=== PATIENT | male | born 1945 | race Caucasian/White ===

== ENCOUNTER 2024-06-26 09:33 | Inpatient (IN) ==
[2024-06-26] MEDS ORDERED: MoRPHine SULFATE 4 MG/ML 1 ML CARP\\VIAL IV PRN (09:47)
[2024-06-26] MEDS ORDERED: MoRPHine SULFATE 2 MG/ML CARP IV PRN (09:47)
--- NOTE | 2024-06-26 09:52 | Emergency Department Note ---
Impression & Plan Nondisplaced fracture of left femur, Hypertension, History of CVA (cerebrovascular accident), Fall ED Provider Note NAME: KEVIN LOPEZ AGE: 79 SEX: M : 1945 ARRIVES VIA: Ambulance INFORMANT: Patient ED PROVIDER(S): Sergio Edward DO CHIEF COMPLAINT: Left hip pain HPI: Patient is an 79-year-old male who was out hunting. A tree fell on the road and he was trying to move it. It was rotted and he was pulling on the branch and the branch broke off and he fell backwards onto his left hip. He did not hit his head or neck. No chest pain or belly pain. No back pain. He notes he is unable to walk due to this. No tingling or numbness in the leg. Denies any blood thinners. No dysuria, urgency, or frequency. ADDITIONAL HISTORY OBTAINED: Per HPI Chronic Medical/Social Conditions Affecting Care: Per HPI PAST MEDICAL HISTORY:See Below PAST SURGICAL HISTORY:See Below FAMILY HISTORY:See Below SOCIAL HISTORY:See Below HOME MEDICATIONS:See Below ALLERGIES:See Below VITALS:See Below PHYSICAL EXAMINATION: GENERAL: alert, well appearing, well nourished, no distress, non-toxic HEAD: normal cephalic, atraumatic EYE EXAM: normal conjunctiva, PERRL and EOM's grossly intact OROPHARYNX: no exudate, no erythema, lips, buccal mucosa, and tongue normal and mucous membranes are moist NECK: supple, no nuchal rigidity, no adenopathy, non-tender CHEST: stable to compression anteriorly and posteriorly LUNGS: clear to auscultation. Normal chest wall mechanics HEART: no murmurs, S1 normal and S2 normal ABDOMEN: abdomen soft, non-tender, normo-active bowel sounds, no masses, no rebound or guarding. PELVIS: stable to compression anteriorly and posteriorly BACK: Back is symmetrical on inspection and there is no deformity, no midline tenderness, no CVA tenderness. UPPER EXTREMITIES: full active and passive range of motion of all joints without tenderness to palpation LOWER EXTREMITIES: No tenderness on palpation of the entire right lower extremity. No tenderness in the left foot ankle tib-fib knee distal or mid femur. Tenderness over the left hip on palpation. Unable to move the hip. DP and PT 2 out of 4 bilaterally. Gross station intact. NEURO EXAM: Normal sensorium, cranial nerves II-XII grossly intact, normal speech, no gross weakness of arms. GCS: 15. MEDICAL DECISION MAKING: Patient is a 79-year-old male who presents ER for the above-stated complaint. IV was established medicos obtained. Labs show no significant leukocytosis or anemia. INR unremarkable. BMP along with LFTs bilirubin was unremarkable. UA was clean. X-rays of the hip and pelvis shows a left hip fracture. Patient was given IV narcotics. He was updated bedside. Discussed with orthopedics as well as the hospitalist for further evaluation management treatment. Patient and family were updated bedside. Again patient denied any head strike or neck pain. Consults/Care Managements Discussions: Per [facility] Triage Nursing notes reviewed. Limited review of prior medical records performed Vital Signs: reviewed and remarkable for HTN Differential diagnosis: Fracture, dislocation, contusion, intra-abdominal, pneumothorax, intrathoracic, intracranial, neurologic, compartment syndrome, rhabdomyolysis, as well as other pathologies. ER treatment provided: See below Diagnostics interpreted by me include EKG and cardiac monitoring as listed below: -Cardiac Monitoring: An order was placed for continuous cardiac monitoring. The monitor shows a rate of 70 with sinus rhythm. -ECG: Sinus rhythm rate of 64 Left axis No PVCs QTc 406 -Laboratory studies:Interpreted by me as stated above in MDM and shown below. Imaging studies: Xrays: As interpreted by me: X-rays of the left hip and pelvis show a left hip fracture per my preliminary interpretation CTs show: none Procedures:none Critical Care: None Past Med/Surg History Problem List (Updated 06/26/24 @ 14:11 by Sergio Edward DO) Fall (Acute) Diabetes Tobacco smoker, 1 pack of cigarettes or less per day History of CVA (cerebrovascular accident) (Acute) Hypertension (Acute) Nondisplaced fracture of left femur (Acute) Social History Smoking Status: Never smoker Feels Safe at Home: Yes Allergies Allergies Allergy/AdvReac Type Severity Reaction Status Date / Time No Known Allergies Allergy Unknown Unverified 05/10/05 00:23 Home Meds Home Medications Medication Instructions Recorded Confirmed aspirin 81 mg tablet,delayed 81 mg PO QAM ##0 04/12/07 06/26/24 release amlodipine 5 mg tablet 5 mg PO QAM 06/26/24 06/26/24 atorvastatin 40 mg tablet 40 mg PO PM 06/26/24 06/26/24 cholecalciferol (vitamin D3) 25 25 mcg PO QAM 06/26/24 06/26/24 mcg (1,000 unit) tablet (Vitamin D3) empagliflozin 10 mg tablet 10 mg PO QAM 06/26/24 06/26/24 (Jardiance) fenofibrate nanocrystallized 48 mg 48 mg PO PM 06/26/24 06/26/24 tablet gabapentin 300 mg capsule 300 mg PO BID 06/26/24 06/26/24 lisinopril 20 mg tablet 20 mg PO BID 06/26/24 06/26/24 metoprolol succinate 25 mg 25 mg PO PM 06/26/24 06/26/24 tablet,extended release 24 hr pantoprazole 20 mg tablet,delayed 20 mg PO UD 06/26/24 06/26/24 release pioglitazone 45 mg tablet 45 mg PO QAM 06/26/24 06/26/24 sitagliptin phos 100 mg-metformin 1 tab PO PM 06/26/24 06/26/24 ER 1,000 mg tablet,extend rel 24h mp (Janumet XR) Results & Data (ED) Vital Signs Vital Signs - 24 hr 06/26/24 09:43 06/26/24 09:55 06/26/24 10:59 Temperature 36.8 C Temperature Source Temporal Artery Scan Pulse Rate 73 65 Pulse Rate [Apical] 67 Respiratory Rate 20 20 Respiratory Effort / Characteristics Non-Labored Spontaneous Respiratory Depth Normal Respiratory Pattern Blood Pressure 174/96 H Blood Pressure [Left Arm] 177/98 H Blood Pressure Mean 122 Blood Pressure Mean [Left Arm] 124 Pulse Oximetry 97 97 Oxygen Delivery Method Room Air Sepsis Recent Fever Within 48 Hours No Sepsis New/Unexplained Change in Mental Status No Sepsis Action Taken by Nursing No Action Required 06/26/24 11:50 06/26/24 13:26 06/26/24 13:36 Temperature Temperature Source Pulse Rate Pulse Rate [Apical] 62 72 72 Respiratory Rate 20 20 18 Respiratory Effort / Characteristics Non-Labored Spontaneous Non-Labored Spontaneous Non-Labored Spontaneous Respiratory Depth Normal Normal Normal Respiratory Pattern Regular Regular Regular Blood Pressure Blood Pressure [Left Arm] 139/98 139/98 170/82 H Blood Pressure Mean Blood Pressure Mean [Left Arm] 111 111 111 Pulse Oximetry 97 96 99 Oxygen Delivery Method Room Air Room Air Room Air Sepsis Recent Fever Within 48 Hours Sepsis New/Unexplained Change in Mental Status Sepsis Action Taken by Nursing 06/26/24 14:01 Temperature Temperature Source Pulse Rate Pulse Rate [Apical] Respiratory Rate Respiratory Effort / Characteristics Respiratory Depth Respiratory Pattern Blood Pressure Blood Pressure [Left Arm] Blood Pressure Mean Blood Pressure Mean [Left Arm] Pulse Oximetry Oxygen Delivery Method Room Air Sepsis Recent Fever Within 48 Hours Sepsis New/Unexplained Change in Mental Status Sepsis Action Taken by Nursing Laboratory Data 06/26/24 10:00 06/26/24 10:38 Lab Results 06/26/24 06/26/24 06/26/24 Range/Units 10:00 10:38 Unknown WBC 10.24 (4.8-10.8) K/ul RBC 4.61 L (4.70-6.10) M/uL Hgb 14.9 (14.0-18.0) g/dl Hct 44.8 (42.0-52.0) % MCV 97.2 (80.0-100.0) fL MCH 32.3 (25.0-34.0) pg MCHC 33.3 (32.0-36.0) g/dL RDW Std Deviation 46.5 H (36.4-46.3) fL RDW Coeff of Dhaval 13.2 (11.5-14.5) % Plt Count 182 (130-400) K/uL MPV 10.4 (9.4-12.4) fL Immature Gran % (Auto) 0.7 % Neut % (Auto) 71.6 % Lymph % (Auto) 21.1 % [place] % (Auto) 4.7 % Eos % (Auto) 1.5 % Baso % (Auto) 0.4 % Neut # (Auto) 7.34 H (1.40-6.50) K/uL Lymph # (Auto) 2.16 (1.20-3.40) K/uL [place] # (Auto) 0.48 (0.11-0.59) K/uL Eos # (Auto) 0.15 (0.00-0.50) K/uL Baso # (Auto) 0.04 (0.00-0.20) K/uL Immature Gran # (Auto) 0.07 (0.01-0.20) K/uL PT Cancelled 10.4 INR Cancelled 1.0 APTT Cancelled 23 PTT Ratio Cancelled 0.9 Sodium Cancelled 139 Potassium Cancelled 5.0 Chloride Cancelled 107 Carbon Dioxide Cancelled 23 Anion Gap Cancelled 9 BUN Cancelled 19 Creatinine Cancelled 1.04 Est Cr Clr Drug Dosing Cancelled 63.6 eGFR Cancelled 72.59 BUN/Creatinine Ratio Cancelled 18.3 Glucose Cancelled 150 H Estimat Average Glucose 186 mg/dl Hemoglobin A1c 8.1 H (4.5-5.6) % Calcium Cancelled 9.2 Total Bilirubin Cancelled 0.4 AST Cancelled 19 ALT Cancelled 17 Alkaline Phosphatase Cancelled 53 Total Protein Cancelled 6.8 Albumin Cancelled 4.1 Globulin Cancelled 2.7 Albumin/Globulin Ratio Cancelled 1.5 Urine Color Yellow Urine Appearance Clear (Clear) Urine pH 7.5 (4.5-7.5) Ur Specific [place] 1.015 (1.000-1.030) Urine Protein 3+ H (Negative) Urine Glucose (UA) 1+ H (Negative) Urine Ketones Negative (Negative) Urine Blood Negative (Negative) Urine Nitrite Negative (Negative) Urine Bilirubin Negative (Negative) Urine Urobilinogen Negative (Negative) Ur Leukocyte Esterase Negative (Negative) Urine WBC (Auto) 0-5 (0-5) /hpf Urine RBC (Auto) 0-2 (0-2) /hpf U Hyaline Cast (Auto) 0-2 (0-2) /lpf U Epithel Cells (Auto) 0-2 (0-2) /hpf Urine Bacteria (Auto) None Seen (None Seen) Administered Medications Discontinued Medications Nicotine (Nicotine 14 Mg/24 Hr Patch) 1 patch TD NOW STA Stop: 06/26/24 11:31 Last Admin: 06/26/24 11:55 Dose: 1 patch Documented By: NRB Imaging Data Radiologist's Impression: Chest X-Ray 06/26/24 09:47 XR chest 1V not portable CLINICAL HISTORY: fall TECHNIQUE: Single frontal radiograph of the chest was obtained. Comparison: None available at the time of this dictation. FINDINGS: No lines and tubes are seen. Calcified aortic knob is seen. The lungs are clear. No evidence of pleural effusion or pneumothorax. IMPRESSION: No acute chest disease. ACT 112: Negative or not required by law. Electronically signed by: Mj Santo M.D. 06/26/2024 11:33 AM Hip/Pelvis X-Ray 06/26/24 09:47 XR hip LT 2V w pelvis HISTORY: 79 years-old Male fall l hip pain acute left pain status post fall COMPARISON: None TECHNIQUE: AP view of the pelvis with 2 views of the left hip FINDINGS: Moderate osteoarthritis of the hips. Multilevel degenerative changes of the lumbar spine. There is an acute nondisplaced transcervical left femoral fracture. No dislocation, or additional acute fracture identified. The bony pelvis appears intact. IMPRESSION: Acute nondisplaced transcervical left femoral fracture. ACT 112: Negative or not required by law. The above report was generated using voice recognition software. It may contain grammatical, syntax or spelling errors. Electronically signed by: Kurtis Phillips M.D. 06/26/2024 11:16 AM Discharge Plan Visit Data Chief Complaint: Fall Stated Complaint: FALL, L HIP PAIN ED Provider: Sergio Edward Discharge Problem: Nondisplaced fracture of left femur, Hypertension, History of CVA (cerebrovascular accident), Fall Discharge Instructions Interventions: ED Discharge Assessment Last Done: 06/26/24 14:01 Forms Stand Alone Forms: [facility] Prescriptions Prescriptions: No Action aspirin [Aspir-81] 81 mg Tablet,Delayed Release (Dr/Ec) 81 mg PO QAM Qty: 0 atorvastatin 40 mg tablet 40 mg PO PM lisinopril 20 mg tablet 20 mg PO BID pioglitazone 45 mg tablet 45 mg PO QAM amlodipine 5 mg tablet 5 mg PO QAM pantoprazole 20 mg tablet,delayed release (DR/EC) 20 mg PO UD Rx Instructions: Sunday, sunday, sunday gabapentin 300 mg capsule 300 mg PO BID metoprolol succinate 25 mg tablet extended release 24 hr 25 mg PO PM fenofibrate nanocrystallized 48 mg tablet 48 mg PO PM Janumet XR 100-1,000 mg tablet, ER multiphase 24 hr 1 tab PO PM cholecalciferol (vitamin D3) [Vitamin D3] 25 mcg (1,000 unit) Tablet 25 mcg PO QAM Jardiance 10 mg Tablet 10 mg PO QAM Referrals Referrals: [facility] [Non-Staff] - Discharge Problem: Hypertension Qualifiers: Hypertension type: unspecified Qualified Code(s): I10 - Essential (primary) hypertension Fall Qualifiers: Encounter type: initial encounter Qualified Code(s): W19.XXXA - Unspecified fall, initial encounter
[2024-06-26 10:19] LABS: Basophils # (auto) 0.04 K/uL (0.00-0.20); Basophils % (auto) 0.4 %; Eosinophils # (auto) 0.15 K/uL (0.00-0.50); Eosinophils % (auto) 1.5 %; Hematocrit (blood only) 44.8 % (42.0-52.0); Hemoglobin 14.9 g/dl (14.0-18.0); Immature Granulocytes # (auto) 0.07 K/uL (0.01-0.20); Immature Granulocytes % (auto) 0.7 %; Lymphocytes # (auto) 2.16 K/uL (1.20-3.40); Lymphocytes % (auto) 21.1 %; Mean Corpuscular Hemoglobin 32.3 pg (25.0-34.0); Mean Corpuscular Hgb Conc 33.3 g/dL (32.0-36.0); Mean Corpuscular Volume 97.2 fL (80.0-100.0); Mean Platelet Volume 10.4 fL (9.4-12.4); Monocytes # (auto) 0.48 K/uL (0.11-0.59); Monocytes % (auto) 4.7 %; Neutrophils # (auto) 7.34 K/uL (1.40-6.50); Neutrophils % (auto) 71.6 %; Platelet Count 182 K/uL (130-400); RDW Coefficient of Variation 13.2 % (11.5-14.5); RDW Standard Deviation 46.5 fL (36.4-46.3); Red Blood Count 4.61 M/uL (4.70-6.10); White Blood Count 10.24 K/ul (4.8-10.8)
--- NOTE | 2024-06-26 10:58 | History & Physical Report ---
Date of Service June 26, 2024 Assessment & Plan (1) Nondisplaced fracture of left femur: Plan: Patient sustained a fall onto his left side while attempting to move a tree on the morning of 06/26 Left pelvic x-ray on arrival revealed an acute nondisplaced transcervical left femoral fracture Activity: Bedrest Revised cardiac risk index: 1 point (class II risk) Orthopedic surgery consult appreciated Patient did eat this morning around 6 AM, but has been n.p.o. since Plan is to go to the OR on 06/26 at 1500 Advance diet as tolerated postop Pain control with acetaminophen and morphine as needed IV antiemetics as needed A.m. CBC, BMP (2) Hypertension: Plan: Continue metoprolol HS Hold AM Lisinopril, amlodipine on 06/27 (3) Diabetes: Plan: A1c 8.1% on 06/26 Hold pioglitazone, sitagliptin, Jardiance Will defer basal insulin for now, as he is insulin gage Loose SSI with target range 110s to 140, CH 50, no carb ratio BSG ACHS Advance to T2DM diet as tolerated postop Adjust regimen as needed (4) Tobacco smoker, 1 pack of cigarettes or less per day: Plan: Nicotine patch daily (5) History of CVA (cerebrovascular accident): Plan: History of stroke in 1988; initially had left-sided residual deficits, but these have resolved over time Hold aspirin the morning of 06/27 Plan Disposition: Admit to [facility] DNR/DNI T2DM diet VTE PPx: SCDs; hold chemical DVT PPx prior to Ortho eval History of Present Illness Chief Complaint: Fall Primary Care Provider: Efren Card Jung is a pleasant 79-year-old male with borderline diabetes, HTN, CVA, severe migraines, and 1 kidney (unclear if this is congenital). He presented on 06/26 after sustaining a fall this morning. He was out hunting this morning, when he came across a rotten tree in the road. He attempted to move at this magda e, but the tree came apart and he took a hard fall onto his left side. He has been having significant pain in his left hip since. No head strike or LOC. He is currently taking aspirin 81 mg daily. He denies PMH of heart failure, DVT/PE, insulin use, or [place]. He has history of a stroke at 44 years old, that had left-sided deficits at first, but he reports no residual deficits at this time; takes aspirin daily and reports that he took it this morning. Patient took all of his regular morning medications today. He did eat toast and a banana this morning around 6 AM. He does have a history of borderline diabetes. At present, he reports that the pain is in his left anterior thigh and left lower back. He describes it as a constant, nagging pain that he rates 7/10 at present. Movements exacerbate the pain and because a sharp stabbing pain in his thigh. No radiation down the leg or up the back. He did not take any pain medicine before coming in. No prior history of injuries to the left leg or hip. No hardware in his left leg or hip. No recent falls or injuries. Patient is a current everyday tobacco cigarette smoker; 1 PPD. He denies any recent alcohol use. Last BM was this morning. He denies any numbness or tingling down the leg. ED course: ROS: Patient endorses left lower back/hip/thigh pain Patient denies fever, chills, night sweats, dizziness, lightheadedness, hea dache, chest pain, chest palpitations, pleuritic CP, SOB, cough, abdominal pain, N/V/D, changes in urinary/bowel habits, or numbness or tingling down the left leg. Allergies Allergy/AdvReac Type Severity Reaction Status Date / Time No Known Allergies Allergy Unknown Verified 06/26/24 14:23 Home Medications Medication Instructions Recorded Confirmed Type aspirin 81 mg tablet,delayed 81 mg PO QA ##0 04/12/07 06/26/24 History release amlodipine 5 mg tablet 5 mg PO QAM 06/26/24 06/26/24 History atorvastatin 40 mg tablet 40 mg PO PM 06/26/24 06/26/24 History cholecalciferol (vitamin D3) 25 25 mcg PO QAM 06/26/24 06/26/24 History mcg (1,000 unit) tablet (Vitamin D3) empagliflozin 10 mg tablet 10 mg PO QAM 06/26/24 06/26/24 History (Jardiance) fenofibrate nanocrystallized 48 mg 48 mg PO PM 06/26/24 06/26/24 History tablet gabapentin 300 mg capsule 300 mg PO BID 06/26/24 06/26/24 History lisinopril 20 mg tablet 20 mg PO BID 06/26/24 06/26/24 History metoprolol succinate 25 mg 25 mg PO PM 06/26/24 06/26/24 History tablet,extended release 24 hr pantoprazole 20 mg tablet,delayed 20 mg PO UD 06/26/24 06/26/24 History release pioglitazone 45 mg tablet 45 mg PO QAM 06/26/24 06/26/24 History sitagliptin phos 100 mg-metformin 1 tab PO PM 06/26/24 06/26/24 History ER 1,000 mg tablet,extend rel 24h mp (Janumet XR) Past Med/Surg History Problem List (Updated 06/26/24 @ 14:16 by Sigifredo Goldberg MD) Displaced fracture of left femoral neck Fall (Acute) Diabetes Tobacco smoker, 1 pack of cigarettes or less per day History of CVA (cerebrovascular accident) (Acute) Hypertension (Acute) Nondisplaced fracture of left femur (Acute) Surgical History (Updated 06/26/24 @ 14:27 by Stacey Paredes RN) Hx of cataract surgery Family History (Updated 06/26/24 @ 14:29 by Stacey Paredes RN) Other Seen by cardiac surgery service Social History Smoking Status: Never smoker Feels Safe at Home: Yes Review of Systems Review of Systems: See HPI above Physical Exam Physical Exam: General: Moderate distress secondary to left hip pain; pleasant affect; daughter at bedside; non-toxic appearing; well-nourished; cooperative; SpO2 97% on RA HEENT: normocephalic, atraumatic; no scleral icterus; PERRLA; vision and hearing grossly intact Neck: supple; trachea midline Skin: warm, dry without signs of tenting; no cyanosis; no rashes, bruising, lesions, or erythema noted CV: chest wall NTP; RRR; S1/S2 normal; no murmurs/rubs/gallops; pulses intact and symmetric at radial, DP, and PT Lungs: no acute respiratory distress; symmetrical chest wall expansion; clear breath sounds across all lung motley w/o adventitious sounds; no wheezing LLE: Left hip is NTP without signs of bruising or internal bleeding; patient demonstrates the ability to wiggle toes bilaterally; he reports that plantar flexion of the left ankle does cause pain to shoot up into the thigh; left knee is NTP and he is able to bend it minimally, albeit with some pain ABD: Soft, NTP; BS present; no rebound/guarding; no distention MSK: no tics or fasciculations; no edema noted in the LEs b/l, nonerythematous Neuro: A&Ox3; normal mood and affect; fluent speech; no focal deficits; he reports sensation might be slightly diminished in the left lateral extremity when compared to the right (assessed via light touch); he reports that sensation is intact and symmetric in both medial lower extremities (assessed via light touch) Results & Data Results & Data Vital Signs (Past 12 Hours) Vital Signs Temp Pulse Resp BP Pulse Ox O2 Del Method 06/26/24 09:55 65 06/26/24 09:43 36.8 C 73 20 174/96 H 97 Room Air Laboratory Results Abnormal lab results 06/26/24 Range/Units 10:00 RBC 4.61 L (4.70-6.10) M/uL RDW Std Deviation 46.5 H (36.4-46.3) fL Neut # (Auto) 7.34 H (1.40-6.50) K/uL Diagnostic Findings Chest X-Ray 06/26/24 09:47 XR chest 1V not portable CLINICAL HISTORY: fall TECHNIQUE: Single frontal radiograph of the chest was obtained. Comparison: None available at the time of this dictation. FINDINGS: No lines and tubes are seen. Calcified aortic knob is seen. The lungs are clear. No evidence of pleural effusion or pneumothorax. IMPRESSION: No acute chest disease. ACT 112: Negative or not required by law. Electronically signed by: Mj Santo M.D. 06/26/2024 11:33 AM Hip/Pelvis X-Ray 06/26/24 09:47 XR hip LT 2V w pelvis HISTORY: 79 years-old Male fall l hip pain acute left pain status post fall COMPARISON: None TECHNIQUE: AP view of the pelvis with 2 views of the left hip FINDINGS: Moderate osteoarthritis of the hips. Multilevel degenerative changes of the lumbar spine. There is an acute nondisplaced transcervical left femoral fracture. No dislocation, or additional acute fracture identified. The bony pelvis appears intact. IMPRESSION: Acute nondisplaced transcervical left femoral fracture. ACT 112: Negative or not required by law. The above report was generated using voice recognition software. It may contain grammatical, syntax or spelling errors. Electronically signed by: Kurtis Phillips M.D. 06/26/2024 11:16 AM ECG Additional Comments: ECG revealed sinus rhythm with marked sinus arrhythmia and first-degree AV block at 64 bpm; QTc 406 No prior EKGs for comparison Code Status & VTE Plan Code Status DNR/DNI (discussed with patient and patient's daughter/POA at bedside) VTE Prophylaxis Plan VTE Prophylaxis will be ordered: Yes Supervising Physician Co-Signing Physician Notes Patient seen and examined, chart reviewed, case discussed with Donald Laguerre PA-C and I agree with the assessment and plan as above except as otherwise noted Labs and images reviewed Lee is seen at the bedside. He is an 79-year-old male with a past medical history of hypertension, CVA, and migraine. He denies history of heart disease, heart failure, heart attacks. Reports having CVA with no history of A-fib over 15 years ago for which she has taken daily aspirin. He did have some left-sided deficits for short period of time which completely resolved with physical therapy. Reports family history of aneurysms, was told at the time of his CVA that he had a very tiny aneurysm which "pinched off and healed "and did not require any type of coiling or further intervention. He has had no issues since that time. 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 He reports that he has not had any kidney problems other than being aware of his solitary functional kidney. Normally is able to walk, ambulate, and park without any limiting chest pain or chest pressure. No orthopnea. No leg swelling. He is in his usual state of health this past week. No recent fever chills sweats, cough or illnesses. He was attempting to clear a tree on his hunting path and lifting it because if he was partially rotted it broke causing him to fall to his side and strike his hip with immediate pain on weightbearing. X-ray shows an acute left transcervical femoral fracture. [place] is consulted. Patient ate breakfast this morning, and took all his morning medications this morning. Bedside assessment lungs are clear, heart rate is regular. Left leg is slightly externally rotated and shortened. PT/DP pulses are intact to palpation. Cap refill is brisk in the feet. Ankle dorsiflexion/plantarflexion and toe extension/flexion are intact bilaterally. Sensation of soft touch is intact in the feet bilaterally. Patient is tender to palpation at the lateral and posterior left hip. Aspirin has been held preoperatively, may resume this postop. No signs of angina and patient regularly completes at least 4 METS of activity without difficulty or limiting symptoms Creatinine pending at time of admission consultation. Encourage orals today, n.p.o. after midnight Tylenol, morphine Multimodal pain control as needed Agree with assessment and management as above PG Care Time/CCT Total # of Minutes Spent Total Time Spent with Patient: Total time spent is greater than 50% in coordination of care (as documented) at patient's floor/unit and/or counseling patient: [place] [address] INT INP/OBS CARE 2/55MIN Patient Type Established History Comprehensive Exam Comprehensive Medical Decision Making Moderate Complexity Diagnoses Nondisplaced fracture of left femur S72.92XA Hypertension I10 Diabetes E11.9 Tobacco smoker, 1 pack of cigarettes or less per day F17.210 History of CVA (cerebrovascular accident) Z86.73
--- NOTE | 2024-06-26 11:17 | XRay Report ---
XR hip LT 2V w pelvis HISTORY: 79 years-old Male fall l hip pain acute left pain status post fall COMPARISON: None TECHNIQUE: AP view of the pelvis with 2 views of the left hip FINDINGS: Moderate osteoarthritis of the hips. Multilevel degenerative changes of the lumbar spine. There is an acute nondisplaced transcervical left femoral fracture. No dislocation, or additional acute fracture identified. The bony pelvis appears intact. IMPRESSION: Acute nondisplaced transcervical left femoral fracture. ACT 112: Negative or not required by law. The above report was generated using voice recognition software. It may contain grammatical, syntax o r spelling errors. Electronically signed by: Kurtis Phillips M.D. 06/26/2024 11:16 AM
[2024-06-26 11:30] LABS: Appearance Urine Clear (Clear); Bacteria Urine Automated None Seen (None Seen); Bilirubin Urine Negative (Negative); Blood Urine Negative (Negative); Cast Urine Automated 0-2 /lpf (0-2); Color Urine Yellow; Epithelial Cell Urine Auto 0-2 /hpf (0-2); Glucose Urine UA 1+ (Negative); Ketones Urine Negative (Negative); Leukocyte Esterase Urine Negative (Negative); Nitrite Urine Negative (Negative); Protein Urine 3+ (Negative); RBC Urine Automated 0-2 /hpf (0-2); Specific Gravity Urine 1.015 (1.000-1.030); Urobilinogen Urine Negative (Negative); WBC Urine Automated 0-5 /hpf (0-5); pH Urine 7.5 (4.5-7.5)
--- NOTE | 2024-06-26 11:34 | XRay Report ---
XR chest 1V not portable CLINICAL HISTORY: fall TECHNIQUE: Single frontal radiograph of the chest was obtained. Comparison: None available at the time of this dictation. FINDINGS: No lines and tubes are seen. Calcified aortic knob is seen. The lungs are clear. No evidence of pleur al effusion or pneumothorax. IMPRESSION: No acute chest disease. ACT 112: Negative or not required by law. Electronically signed by: Mj Santo M.D. 06/26/2024 11:33 AM
[2024-06-26 11:49] LABS: Albumin Level 4.1 gm/dl (3.4-5.0); Bilirubin,Total 0.4 mg/dl (0.2-1.0); Calcium 9.2 mg/dl (8.6-10.3); Partial Thromboplastin Ratio 0.9; Partial Thromboplastin Time 23 Seconds (21-31); Prothrombin Time 10.4 Seconds (9.0-12.0)
[2024-06-26 11:55] LABS: Albumin Globulin Ratio 1.5 (0.9-2); BUN Creatinine Ratio 18.3 (10-20); Creatinine Clr Calc Pharmacy 63.6 ml/min; Globulin 2.7 gm/dl (2.5-4.0); Total Protein 6.8 gm/dl (6.0-8.3)
[2024-06-26] MEDS: NICOTINE 14 MG/24 HR PATCH TD STA (11:55)
[2024-06-26 12:40] LABS: Estimated Average Glucose 186 mg/dl; Hemoglobin A1C 8.1 % (4.5-5.6)
--- NOTE | 2024-06-26 14:13 | Orthopedic Consultation ---
Date of Consultation June 26, 2024 Assessment & Plan (1) Displaced fracture of left femoral neck: Discussed the diagnosis with the patient and his daughter who is with him at the bedside. Treatment options were discussed. Do not recommend nonoperative treatment as this he would likely have trouble ever walking again. Close reduction percutaneous pinning has a high risk of nonunion in which case he would need revision surgery. Therefore, I think his best treatment options is a left total hip replacement. Discussed with the patient that he is at increased risk for complications because of his uncontrolled diabetes with hemoglobin A1c of 8.1 as well as the fact that he is a smoker. I reviewed the risks and benefits of the surgery, alternatives, and expected outcomes. After reviewing all these he would like to proceed with surgery. All questions were answered. Informed consent was signed. He last ate at 0600 hrs. this morning. Will proceed to the operating room this afternoon. Admit to internal medicine after surgery. History of Present Illness Reason for Consultation: Left hip fracture History of Present Illness Jung is a pleasant 79-year-old male with diabetes, HTN, CVA, severe migraines, and 1 kidney (unclear if this is congenital). He presented on 06/26 after sustaining a fall this morning. He was out hunting this morning, when he came across a rotten tree in the road. He attempted to move at this tree, but the tree came apart and he took a hard fall onto his left side. He has been having significant pain in his left hip since. No head strike or LOC. He is currently taking aspirin 81 mg daily. He denies PMH of heart failure, DVT/PE, insulin use, or [place]. He has history of a stroke at 44 years old, that had left- sided deficits at first, but he reports no residual deficits at this time; takes aspirin daily and reports that he took it this morning. Patient took all of his regular morning medications today. He did eat toast and a banana this mornin. He does have a history of diabetes and says he has taken metformin for this for many years. At present, he reports that the pain is in his left anterior thigh and left lower back. He describes it as a constant, nagging pain that he rates 7/10 at present. Movements exacerbate the pain and because a sharp stabbing pain in his thigh. No radiation down the leg or up the back. He did not take any pain medicine before coming in. No prior history of injuries to the left leg or hip. No hardware in his left leg or hip. No recent falls or injuries. Patient is a current everyday tobacco cigarette smoker; 1 PPD. He denies any recent alcohol use. Last BM was this morning. He denies any numbness or tingling down the leg. Allergies Allergy/AdvReac Type Severity Reaction Status Date / Time No Known Allergies Allergy Unknown Unverified 05/10/05 00:23 Home Medications Medication Instructions Recorded Confirmed Type aspirin 81 mg tablet,delayed 81 mg PO QAM ##0 04/12/07 06/26/24 History release amlodipine 5 mg tablet 5 mg PO QAM 06/26/24 06/26/24 History atorvastatin 40 mg tablet 40 mg PO PM 06/26/24 06/26/24 History cholecalciferol (vitamin D3) 25 25 mcg PO QAM 06/26/24 06/26/24 History mcg (1,000 unit) tablet (Vitamin D3) empagliflozin 10 mg tablet 10 mg PO QAM 06/26/24 06/26/24 History (Jardiance) fenofibrate nanocrystallized 48 mg 48 mg PO PM 06/26/24 06/26/24 History tablet gabapentin 300 mg capsule 300 mg PO BID 06/26/24 06/26/24 History lisinopril 20 mg tablet 20 mg PO BID 06/26/24 06/26/24 History metoprolol succinate 25 mg 25 mg PO PM 06/26/24 06/26/24 History tablet,extended release 24 hr pantoprazole 20 mg tablet,delayed 20 mg PO UD 06/26/24 06/26/24 History release pioglitazone 45 mg tablet 45 mg PO QAM 06/26/24 06/26/24 History sitagliptin phos 100 mg-metformin 1 tab PO PM 06/26/24 06/26/24 History ER 1,000 mg tablet,extend rel 24h mp (Janumet XR) Patient History Social History Smoking Status: Never smoker Feels Safe at Home: Yes Physical Exam Physical Exam: Resting comfortably in bed no acute distress. Alert and oriented x 3. Left lower extremity exam reveals the patient to have palpable dorsalis pedis and posterior tibial pulses. He is sensory intact to light touch throughout the left lower extremity. He wiggles toes and fires tib ant and gastrocsoleus. Passive logroll of the left hip causes pain. Unable to do a straight leg raise. Skin is intact over the lateral hip. Results & Data Vital Signs (Past 12 Hours) Vital Signs Temp Pulse Pulse Resp BP BP Pulse Ox 06/26/24 14:01 06/26/24 13:36 72 18 170/82 H 99 06/26/24 13:26 72 20 139/98 96 06/26/24 11:50 62 20 139/98 97 06/26/24 10:59 67 20 177/98 H 97 06/26/24 09:55 65 06/26/24 09:43 36.8 C 73 20 174/96 H 97 O2 Del Method 06/26/24 14:01 Room Air 06/26/24 13:36 Room Air 06/26/24 13:26 Room Air 06/26/24 11:50 Room Air 06/26/24 10:59 06/26/24 09:55 06/26/24 09:43 Room Air Diagnostic Findings X-rays done in the emergency room were independently interpreted by me. These show a mildly displaced left femoral neck fracture.
[2024-06-26] MEDS ORDERED: ROCURONIUM BROMIDE 10 MG/ML 5 ML VIAL IV ONE ×2 (15:05→16:24)
[2024-06-26] MEDS ORDERED: PROPOFOL IV EMULSION 10 MG/ML 20 ML VIAL IV ONE (15:05)
[2024-06-26] MEDS ORDERED: LIDOCAINE 2% 2 ML VIAL/AMP(20MG/ML) INFIL ONE (15:05)
[2024-06-26] MEDS ORDERED: fentaNYL citrate PF 100 MCG/2 ML VIAL ONE ×2 (15:05→15:58)
--- NOTE | 2024-06-26 15:20 | Anesthesiology Consultation ---
Date of Service June 26, 2024 Assessment & Plan (1) Encounter for pre-operative examination: Chart Review Chart Review: Acceptable Risk for Surgery and Patient NOT seen in Pre Admission Testing Consults Requested none History Surgery Operation Date: 06/26/24 07:00 Proposed Procedures p Left Total Hip Arthroplasty - Sigifredo Goldberg MD Height/Weight Height: 5 ft 11 in Weight: 88.9 kg Allergies Allergy/AdvReac Type Severity Reaction Status Date / Time No Known Allergies Allergy Unknown Verified 06/26/24 14:23 Medications Home Medications Medication Instructions Recorded Confirmed Last Taken aspirin 81 mg tablet,delayed 81 mg PO QAM ##0 04/12/07 06/26/24 06/26/24 release amlodipine 5 mg tablet 5 mg PO QAM 06/26/24 06/26/24 06/26/24 atorvastatin 40 mg tablet 40 mg PO PM 06/26/24 06/26/24 Unknown cholecalciferol (vitamin D3) 25 25 mcg PO QAM 06/26/24 06/26/24 06/26/24 mcg (1,000 unit) tablet (Vitamin D3) empagliflozin 10 mg tablet 10 mg PO QAM 06/26/24 06/26/24 06/26/24 (Jardiance) fenofibrate nanocrystallized 48 mg 48 mg PO PM 06/26/24 06/26/24 Unknown tablet gabapentin 300 mg capsule 300 mg PO BID 06/26/24 06/26/24 06/26/24 lisinopril 20 mg tablet 20 mg PO BID 06/26/24 06/26/24 06/26/24 metoprolol succinate 25 mg 25 mg PO PM 06/26/24 06/26/24 Unknown tablet,extended release 24 hr pantoprazole 20 mg tablet,delayed 20 mg PO UD 06/26/24 06/26/24 Unknown release pioglitazone 45 mg tablet 45 mg PO QAM 06/26/24 06/26/24 06/26/24 sitagliptin phos 100 mg-metformin 1 tab PO PM 06/26/24 06/26/24 Unknown ER 1,000 mg tablet,extend rel 24h mp (Janumet XR) NPO Date Last Intake of Fluids: 06/26/24 Time Last Intake of Fluids: 06:30 Last Intake of Fluids Comment: coffee Date Last Intake of Solids: 06/26/24 Time Last Intake of Solids: 06:00 Last Intake of Solids Comment: two pieces of toast and one banana Past Family History Family History Other Seen by cardiac surgery service Past Surgical History Surgical History Hx of cataract surgery Social History Smoking Status: Never smoker Physical Exam Vital Signs Last Vital Signs Temp 98.2 F 06/26/24 14:12 Pulse 71 06/26/24 14:12 Resp 20 06/26/24 14:12 BP 179/87 H 06/26/24 14:12 Pulse Ox 98 06/26/24 14:12 O2 Del Method Room Air 06/26/24 14:12 Testing Laboratory Results 06/26/24 10:00 06/26/24 10:38 PT 10.4 Seconds (9.0-12.0) 06/26/24 10:38 INR 1.0 (0.9-1.1) 06/26/24 10:38 APTT 23 Seconds (21-31) 06/26/24 10:38 Hemoglobin A1c 8.1 % (4.5-5.6) H 06/26/24 10:00 Urine Color Yellow 06/26/24 Unknown Urine Appearance Clear (Clear) 06/26/24 Unknown Urine pH 7.5 (4.5-7.5) 06/26/24 Unknown Ur Specific [place] 1.015 (1.000-1.030) 06/26/24 Unknown Urine Protein 3+ (Negative) H 06/26/24 Unknown Urine Glucose (UA) 1+ (Negative) H 06/26/24 Unknown Urine Ketones Negative (Negative) 06/26/24 Unknown Urine Nitrite Negative (Negative) 06/26/24 Unknown Ur Leukocyte Esterase Negative (Negative) 06/26/24 Unknown Urine WBC (Auto) 0-5 /hpf (0-5) 06/26/24 Unknown Urine RBC (Auto) 0-2 /hpf (0-2) 06/26/24 Unknown U Hyaline Cast (Auto) 0-2 /lpf (0-2) 06/26/24 Unknown U Epithel Cells (Auto) 0-2 /hpf (0-2) 06/26/24 Unknown Urine Bacteria (Auto) None Seen (None Seen) 06/26/24 Unknown 06/26/24 14:06 POC Glucose 114 H
[2024-06-26] MEDS ORDERED: ATROPINE SULFATE 0.1 MG/ML 10ML SYR IV PRN (15:21)
[2024-06-26] MEDS ORDERED: ePHEDrine sulfate 50 MG/ML AMP IV PRN (15:21)
[2024-06-26] MEDS ORDERED: fentaNYL citrate PF 100 MCG/2 ML VIAL IV PRN (15:21)
[2024-06-26] MEDS ORDERED: ONDANSETRON INJ 2 MG/ML 2 ML VIAL IV PRN ×2 (15:21→19:25)
[2024-06-26] MEDS: LACTATED RINGER'S 1,000 ML IV SCH (15:26)
[2024-06-26] MEDS: TRANEXAMIC ACID / 0.7% NACL 1,000 MG/100 ML BAG IV ONE (15:27)
[2024-06-26] MEDS: ceFAZolin 2000MG 2,000 MG/15 ML SYR IV ONE (15:32)
[2024-06-26] MEDS ORDERED: GLYCOPYRROLATE 0.2 MG/ML VIAL ONE ×2 (16:01→17:37)
[2024-06-26] MEDS ORDERED: LABETALOL HCL IV 5 MG/ML 20ML IV ONE ×2 (16:04→16:08)
[2024-06-26] MEDS ORDERED: DexMEDEtomidine HCL IV 100 MCG/ML VIAL IV ONE (16:11)
[2024-06-26] MEDS ORDERED: ceFAZolin 330 MG/ML 1 GM VIAL ONE (17:33)
[2024-06-26] MEDS: ceFAZolin 1000MG 1,000 MG/7.5 ML SYR IV ONE (17:35)
[2024-06-26] MEDS ORDERED: NEOSTIGMINE METHYLSULFATE 1 MG/ML 10ML VIAL ONE (17:37)
[2024-06-26] MEDS: VANCOMYCIN HCL 1000MG/20ML VIAL ONE (17:40)
[2024-06-26] MEDS: TRANEXAMIC ACID / 0.7% NACL 1000MG/100ML BAG IV ONE ×2 (17:41→17:42)
[2024-06-26] MEDS: ceFAZolin 2,000 MG/15 ML IV PUSH IV ONE (17:41)
[2024-06-26] MEDS: ROPIVACAINE 0.5% HCL/PF 246 MG, Ketorolac (*for OR use only*) 30 MG, EPINEPHrine 30MG/3... INFIL SCH (17:48)
--- NOTE | 2024-06-26 18:19 | Operative Report ---
Post Operative Report Pre & Post Diagnosis Operation Date: 06/26/24 07:00 Pre-Op Diagnosis: Left femoral neck fracture Post-Op Diagnosis: left femoral neck fracture I identified the patient and participated in the time-out.: Yes Procedure Operation Date: 06/26/24 07:00 Actual Procedures p Left Total Hip Arthroplasty(Left) - Sigifredo Goldberg MD Surgeon Sigifredo Goldberg MD Design Technology Professor Ty Gomez DO and JETHRO Martin PA-C. Estimated Blood Loss 50 Findings Consistent with Post-Op Diagnosis Specimens Left femoral head Anesthesia Type General Complications none Disposition Disposition: Recovery Room Indications 79-year-old male, fell at home earlier today. Immediate onset of left hip pain. Was not able to walk. He was brought by ambulance to the emergency room where x-rays were obtained demonstrating a mildly displaced left femoral neck fracture. He is very active hunting and working outside. I had a long discussion with him about his diagnosis and treatment options. He desires to remain active. Therefore he was a candidate for a total hip arthroplasty on the left. After reviewing all the risks and benefits of surgery, alternatives to surgery, and expected outcomes he elected to proceed. All questions were answered. Informed consent was signed. Description of Procedure Patient was identified in the emergency room where his surgical site was marked. He was brought back to the operating room where he moved onto the operating room table and general anesthesia was administered. He was carefully moved up in the lateral decubitus position. Axillary roll was placed. All bony prominences were padded. Perioperative antibiotics were administered. He was prepped and draped in the normal sterile fashion. Prior to incision a multidisciplinary timeout was called. All in the room were in agreement. We began by making a 10 cm long incision for a anterolateral approach to the hip centered over the greater trochanter. Dissected down through the subcutaneous tissues to level the fascia. Full-thickness flaps were raised above the fascia to facilitate closure. The fascia was then incised in line with the incision. Charnley bow was placed. The abductors were then split at the anterior two thirds posterior one third junction just above the trochanter. Tension was placed on the abductors and then using subperiosteal dissection with elect rocautery we peeled off the anterior aspect of the abductors and a full- thickness layer to include the capsule. We continued our dissection distally until we could reach the lesser trochanter. The hip was gradually externally rotated to facilitate this. We could then visualize the femoral neck as well as the femoral neck fracture. We then externally rotated the hip which brought the fractured femoral neck up into the field. We freshened up the femoral neck with a new saw cut using the guide approximately 10 cm above the lesser trochanter. Once this was complete a corkscrew was used to remove the fractured femoral head which was then sent to pathology. Next, we turned our attention to the acetabulum. Small fracture fragments were evacuated out of the acetabulum. Inferior capsular slipping was released with electrocautery. Acetabular retractors were placed. Contents of the cotyloid fossa removed with electrocautery. We gradually reamed up all the way to a size 56 cup. Acetabulum was then irrigated out. The real [place] GRIPTION sector cup was opened up and impacted down into position at approximately 40 degrees of lateral opening and 15 degrees of anteversion. 2 cancellous screws were placed up into the ilium. Excellent fixation was obtained. A trial liner was placed for 36 femoral head. Next, we turned our attention to the femur. The hip was externally rotated and the foot was placed down into the sterile bag. Abductors were protected throughout. Intramedullary guide was used to establish the intramedullary canal. We then gradually broached up to a size 4 Actis DePuy stem. A high offset +1.5 femoral head trial was then placed on the broach. The hip was reduced. We checked our leg lengths which we are happy with. Shuck test was appropriate. He was stable in the sleeper position, external rotation with extension, and with hip flexion he could be internally rotated 45 degrees. I was happy with the stability exam. Therefore the hip was atraumatically dislocated. The femoral trial was removed. The femoral canal was irrigated out and dried. We then reexposed the acetabulum. The trial acetabular liner was removed. Acetabular shell was irrigated out with dilute Betadine solution as well as normal saline. We then placed our [place] hole eliminator. The 56 mm outer diameter and 36 mm inner diameter Ultrex polyethylene liner was impacted into the shell. We checked that the locking mechanism had engaged which it had. We then turned our attention back to the femur. A size 4 high offset Actis femoral stem was opened up. This was gently impacted so the collar sat flush on the femoral neck cut. A +5 femoral head ceramic, 36 mm diameter, was then opened up and gently impacted onto the trunnion. Hip was then atraumatically reduced. We then irrigated out the hip with sterile Betadine followed by sterile saline. 1 g of vancomycin powder was placed into the hip joint. The capsule and abductor layer was then closed with interrupted #2 Vicryl sutures in [id number] fashion. The fascia was run with a looped #1 PDS. The subcutaneous layer was closed with #1 PDS in running fashion. 2-0 Vicryl was used in the deep dermis. Zipline and Dermabond was used for the skin. A Silverlon dressing was placed on the wound. He was then carefully rolled supine, extubated, and transferred to cover room in stable condition. Postoperative course: Patient be admitted to the internal medicine service for pain control and monitoring. Recommend aspirin 81 mg twice a day for DVT prophylaxis. He should use a walker for minimum 2 weeks after surgery followed by a cane for another 2 weeks minimum. Anterior hip precautions. I attest to the content of the Intraoperative Record and any orders documented therein. Any exceptions are noted below.
--- NOTE | 2024-06-26 18:46 | Operative Report ---
Post Operative Report Pre & Post Diagnosis Operation Date: 06/26/24 07:00 Pre-Op Diagnosis: Fall, Left Hip Pain Post-Op Diagnosis: Fall, Left Hip Pain I identified the patient and participated in the time-out.: Yes Procedure Operation Date: 06/26/24 07:00 Actual Procedures p Left Total Hip Arthroplasty(Left) - Sigifredo Goldberg MD Surgeon Sigifredo Goldberg MD Quotation Clerk Ty Gomez DO and JETHRO Martin PA-C. Estimated Blood Loss 50 Findings Consistent with Post-Op Diagnosis Specimens Femoral head Description of Procedure Patient was brought to the operative room and underwent general anesthesia, he was placed in right lateral decubitus position. The left lower extremity was then prepped and draped in the usual sterile fashion. A surgical timeout was performed. The patient underwent a left total hip arthroplasty for femoral neck fracture, please see Dr. Goldberg's operative report for full details. I was present and assisted with patient positioning, limb positioning, soft tissue retraction, surgical approach, hardware placement, wound closure, postoperative dressing placement. Patient was awakened and taken to the recovery room in stable condition. I attest to the content of the Intraoperative Record and any orders documented therein. Any exceptions are noted below.
--- NOTE | 2024-06-26 19:14 | XRay Report ---
SINGLE VIEW PELVIS; SINGLE VIEW LEFT HIP CLINICAL HISTORY: Postoperative examination. FINDINGS: An AP portable view of the hips and pelvis with a crosstable lateral portable view of the l eft hip are compared to study performed earlier the same day 06/26/2024. A bipolar left hip arthropla sty is in near-anatomic alignment. 2 cortical lag screws transfix the acetabular cup. No acute fractu re is identified. There are expected postoperative changes overlying the left hip including skin clip s, subcutaneous gas, a surgical drain, and soft tissue swelling. Mild arthritic change is seen in the right hip. Phleboliths are noted in the pelvis. There is atherosclerotic calcification of the femora l arteries. IMPRESSION: Expected postoperative findings status post left hip arthroplasty. No acute fracture is s een. ACT 112: Negative or not required by law. Electronically signed by: Jose G Rosen M.D. 06/26/2024 7:13 PM
[2024-06-26] MEDS ORDERED: DEXTROSE 50% 50 ML SYRINGE IV PRN (19:25)
[2024-06-26] MEDS ORDERED: GLUCOSE 10 TAB/TUBE PO PRN (19:25)
[2024-06-26] MEDS ORDERED: ACETAMINOPHEN 325 MG TAB PO PRN (19:25)
[2024-06-26] MEDS ORDERED: METOCLOPRAMIDE HCL INJ 5 MG/ML 2 ML VIAL IV PRN (19:25)
[2024-06-26] MEDS ORDERED: GLUCAGON FOR INJ 1 MG VIAL SQ PRN (19:25)
[2024-06-26] MEDS ORDERED: GLUCOSE 40% GEL 15 GM TUBE PO PRN (19:25)
[2024-06-26] MEDS ORDERED: NALOXONE HCL 0.4 MG/1 ML VIAL/CARP IV PRN (19:25)
[2024-06-26] MEDS ORDERED: CARBOHYDRATES FOR HYPOGLYCEMIA PO PRN (19:25)
--- NOTE | 2024-06-26 19:33 | Anesthesiology Progress Note ---
Date of Service June 26, 2024 Anesthesia Post Procedure Vital Signs Vital Signs: Temp Pulse Pulse Pulse Resp BP BP 06/26/24 18:55 97.7 F 63 16 06/26/24 18:45 63 20 06/26/24 18:35 66 20 06/26/24 18:28 96.8 F L 65 18 06/26/24 14:12 98.2 F 71 20 06/26/24 14:01 06/26/24 13:36 72 18 170/82 H 06/26/24 13:26 72 20 139/98 06/26/24 11:50 62 20 139/98 06/26/24 10:59 67 20 177/98 H 06/26/24 09:55 65 06/26/24 09:43 98.2 F 73 20 174/96 H BP Pulse Ox O2 Del Method O2 Flow Rate 06/26/24 18:55 131/62 95 Room Air 06/26/24 18:45 133/62 96 Room Air 06/26/24 18:35 130/77 96 Oxymask 3 06/26/24 18:28 152/74 H 98 Oxymask 6 06/26/24 14:12 179/87 H 98 Room Air 06/26/24 14:01 Room Air 06/26/24 13:36 99 Room Air 06/26/24 13:26 96 Room Air 06/26/24 11:50 97 Room Air 06/26/24 10:59 97 06/26/24 09:55 06/26/24 09:43 97 Room Air Pain Intensity Left Hip: Pain Intensity: 2 Transfer of Care Handoff Completed per policy Notes Mental Status: alert / awake / arousable and participated in evaluation Patient Amnestic to Procedure: Yes Nausea / Vomiting: adequately controlled Pain: adequately controlled Airway Patency, RR, SpO2: stable & adequate BP & HR: stable & adequate Hydration State: stable & adequate Anesthetic Complications: no major complications apparent and Pt Satisfied with anesthetic care
[2024-06-26] MEDS: KETOROLAC TROMETHAMINE 15 MG/ML VIAL IV SCH (19:38)
[2024-06-26] MEDS: oxyCODONE HCL IR 5 MG TAB (IMMEDIATE RELEASE) PO PRN (20:02)
[2024-06-26] MEDS: INSULIN ASPART PER UNIT CHARGE SC SCH (20:55)
[2024-06-26] MEDS: DOCUSATE SODIUM 100 MG CAP PO SCH (21:01)
[2024-06-26] MEDS: METOPROLOL SUCC 25MG EXT REL TAB PO SCH (21:01)
[2024-06-26] MEDS: GABAPENTIN 300 MG CAP PO SCH (21:01)
[2024-06-26] MEDS: ATORVASTATIN 40 MG TAB PO SCH (21:01)
[2024-06-26] MEDS: SENNA 8.6 MG TAB PO SCH (21:01)
[2024-06-26] MEDS: lisinopril 20 MG TAB PO ONE (21:02)
[2024-06-26] MEDS: ACETAMINOPHEN 500 MG TAB PO SCH (21:44)
[2024-06-26] MEDS: MoRPHine SULFATE 4 MG/ML 1 ML CARP\\VIAL IV PRN (21:45)
--- NOTE | 2024-06-26 23:26 | Electrocardiogram Report ---
Test Reason : Blood Pressure : */* mmHG Vent. Rate : 64 BPM Atrial Rate : 64 BPM P-R Int : 228 ms QRS Dur : 88 ms QT Int : 394 ms P-R-T Axes : 58 -33 56 degrees QTcB Int : 406 ms Sinus rhythm with marked sinus arrhythmia with 1st degree A-V block Left axis deviation Possible Anterior infarct Abnormal ECG When compared with ECG of 10-May-2005 00:04, DC interval has increased Questionable change in initial forces of Anterior leads Confirmed by José Miguel Young ([id number]) on 06/26/2024 11:25:40 PM Referred By: REFERRED SELF Confirmed By: José Miguel Young
[2024-06-27] MEDS: ceFAZolin 2000MG 2,000 MG/15 ML SYR IV SCH (00:44)
[2024-06-27 08:10] LABS: Basophils # (auto) 0.01 K/uL (0.00-0.20); Basophils % (auto) 0.1 %; Eosinophils # (auto) 0.01 K/uL (0.00-0.50); Eosinophils % (auto) 0.1 %; Hematocrit (blood only) 37.8 % (42.0-52.0); Hemoglobin 12.7 g/dl (14.0-18.0); Immature Granulocytes # (auto) 0.11 K/uL (0.01-0.20); Immature Granulocytes % (auto) 0.8 %; Lymphocytes # (auto) 1.42 K/uL (1.20-3.40); Lymphocytes % (auto) 9.9 %; Mean Corpuscular Hemoglobin 32.4 pg (25.0-34.0); Mean Corpuscular Hgb Conc 33.6 g/dL (32.0-36.0); Mean Corpuscular Volume 96.4 fL (80.0-100.0); Mean Platelet Volume 10.4 fL (9.4-12.4); Monocytes # (auto) 0.75 K/uL (0.11-0.59); Monocytes % (auto) 5.2 %; Neutrophils # (auto) 12.08 K/uL (1.40-6.50); Neutrophils % (auto) 83.9 %; Platelet Count 177 K/uL (130-400); RDW Standard Deviation 45.7 fL (36.4-46.3); Red Blood Count 3.92 M/uL (4.70-6.10); White Blood Count 14.38 K/ul (4.8-10.8)
[2024-06-27] MEDS: MULTIVITAMIN TAB PO SCH (09:29)
[2024-06-27] MEDS: PANTOprazole 40 MG TAB PO SCH (09:30)
--- NOTE | 2024-06-27 09:52 | Operative Report ---
Post Operative Report Pre & Post Diagnosis Operation Date: 06/26/24 07:00 Pre-Op Diagnosis: Fall, Left Hip Pain Post-Op Diagnosis: Fall, Left Hip Pain I identified the patient and participated in the time-out.: Yes Procedure Operation Date: 06/26/24 07:00 Actual Procedures p Left Total Hip Arthroplasty(Left) - Sigifredo Goldberg MD Surgeon Sigifredo Goldberg MD Regulatory Affairs Intern Ty Gomez DO and JETHRO Martin PA-C. Estimated Blood Loss 50 Findings Consistent with Post-Op Diagnosis Specimens femoral head Description of Procedure I was present for most of the case assisting with prepping, draping, wound retraction and hardware placements. I scrubbed out of the case during closure. Fellow was present. I served as an extra set of hands. Please see Dr. Goldberg procedure note for specifics. I attest to the content of the Intraoperative Record and any orders documented therein. Any exceptions are noted below.
--- NOTE | 2024-06-27 09:58 | Orthopedic Progress Note ---
Date of Service June 27, 2024 Assessment & Plan (1) S/P total left hip arthroplasty: Plan: Anterior total hip precautions Weightbearing as tolerated with walker assistance Abduction pillow use when sleeping Keep Silverlon dressing in place PT/OT DVT prophylaxis with ZEYNEP stockings and aspirin Pain controlled p.o. medication Ice with easy wrap Will need 2-week follow-up at [facility] Patient will most likely need to go to a rehab facility upon discharge With questions contact our clinic at [phone] Admission and Anticipated Discharge Date Admission Date: June 26, 2024 Subjective This 79-year-old male is day 1 status post anterior total hip arthroplasty for a femoral neck fracture that he sustained when he was trying to move a tree from his path. Patient was brought to the emergency department and evaluated by Dr. Hanh deras. Surgical intervention was recommended and the patient agreed. Currently he states that he is doing very well. His pain is well-controlled with his p.o. pain medication. He states that he has been able to get out of bed and walk around with the assistance of his walker without discomfort. He denies chest pain, shortness of breath, fever, chills, sweats, nausea, vomiting or diarrhea. He also denies numbness or tingling in his left lower extremity but states that he has had difficulty urinating. Review of Systems Review of Systems: All systems reviewed & are unremarkable except as noted in Subjective Physical Exam Physical Exam: Left hip: Outer dressing was removed. Silverlon is intact with some slight saturation but no leakage so I kept in place. Patient was able to to actively perform a straight leg raise with some slight difficulty. He had no issues with dorsi and plantarflex his foot. He had no pain with logroll testing. He tolerated light passive hip flexion near 80 degrees. He experiences slight pulling sensation with light passive external rotation but no discomfort with internal rotation. He was neurovascularly intact in the left lower extremity. Results & Data Vital Signs (Past 12 Hours) Vital Signs Temp Pulse Resp BP Pulse Ox O2 Del Method 06/27/24 07:48 36.4 C L 66 16 131/73 95 Room Air 06/27/24 04:03 36.4 C L 75 18 134/71 93 Room Air 06/26/24 23:26 36.4 C L 73 18 123/63 95 Room Air Diagnostic Findings Laboratory Results WBC 14.38 K/ul (4.8-10.8) H 06/27/24 07:50 RBC 3.92 M/uL (4.70-6.10) L 06/27/24 07:50 Hgb 12.7 g/dl (14.0-18.0) L 06/27/24 07:50 Hct 37.8 % (42.0-52.0) L 06/27/24 07:50 MCV 96.4 fL (80.0-100.0) 06/27/24 07:50 MCH 32.4 pg (25.0-34.0) 06/27/24 07:50 MCHC 33.6 g/dL (32.0-36.0) 06/27/24 07:50 RDW Std Deviation 45.7 fL (36.4-46.3) 06/27/24 07:50 RDW Coeff of Dhaval 13.0 % (11.5-14.5) 06/27/24 07:50 Plt Count 177 K/uL (130-400) 06/27/24 07:50 MPV 10.4 fL (9.4-12.4) 06/27/24 07:50 Immature Gran % (Auto) 0.8 % 06/27/24 07:50 Neut % (Auto) 83.9 % 06/27/24 07:50 Lymph % (Auto) 9.9 % 06/27/24 07:50 [place] % (Auto) 5.2 % 06/27/24 07:50 Eos % (Auto) 0.1 % 06/27/24 07:50 Baso % (Auto) 0.1 % 06/27/24 07:50 Neut # (Auto) 12.08 K/uL (1.40-6.50) H 06/27/24 07:50 Lymph # (Auto) 1.42 K/uL (1.20-3.40) 06/27/24 07:50 [place] # (Auto) 0.75 K/uL (0.11-0.59) H 06/27/24 07:50 Eos # (Auto) 0.01 K/uL (0.00-0.50) 06/27/24 07:50 Baso # (Auto) 0.01 K/uL (0.00-0.20) 06/27/24 07:50 Immature Gran # (Auto) 0.11 K/uL (0.01-0.20) 06/27/24 07:50 PT 10.4 Seconds (9.0-12.0) 06/26/24 10:38 INR 1.0 (0.9-1.1) 06/26/24 10:38 APTT 23 Seconds (21-31) 06/26/24 10:38 PTT Ratio 0.9 06/26/24 10:38 Sodium 139 mmol/L (136-145) 06/26/24 10:38 Potassium 5.0 mmol/L (3.5-5.1) 06/26/24 10:38 Chloride 107 mmol/L (98-107) 06/26/24 10:38 Carbon Dioxide 23 mmol/L (21-32) 06/26/24 10:38 Anion Gap 9 (3-11) 06/26/24 10:38 BUN 19 mg/dl (6-23) 06/26/24 10:38 Creatinine 1.04 mg/dl (0.6-1.4) 06/26/24 10:38 Est Cr Clr Drug Dosing 63.6 ml/min 06/26/24 10:38 eGFR 72.59 06/26/24 10:38 BUN/Creatinine Ratio 18.3 (10-20) 06/26/24 10:38 Glucose 150 mg/dl (70-99(Fasting)) H 06/26/24 10:38 POC Glucose 185 mg/dl (70-99) H 06/27/24 07:50 Estimat Average Glucose 186 mg/dl 06/26/24 10:00 Hemoglobin A1c 8.1 % (4.5-5.6) H 06/26/24 10:00 Calcium 9.2 mg/dl (8.6-10.3) 06/26/24 10:38 Total Bilirubin 0.4 mg/dl (0.2-1.0) 06/26/24 10:38 AST 19 U/L (13-39) 06/26/24 10:38 ALT 17 U/L (7-52) 06/26/24 10:38 Alkaline Phosphatase 53 U/L (34-104) 06/26/24 10:38 Total Protein 6.8 gm/dl (6.0-8.3) 06/26/24 10:38 Albumin 4.1 gm/dl (3.4-5.0) 06/26/24 10:38 Globulin 2.7 gm/dl (2.5-4.0) 06/26/24 10:38 Albumin/Globulin Ratio 1.5 (0.9-2) 06/26/24 10:38 Urine Color Yellow 06/26/24 Unknown Urine Appearance Clear (Clear) 06/26/24 Unknown Urine pH 7.5 (4.5-7.5) 06/26/24 Unknown Ur Specific [place] 1.015 (1.000-1.030) 06/26/24 Unknown Urine Protein 3+ (Negative) H 06/26/24 Unknown Urine Glucose (UA) 1+ (Negative) H 06/26/24 Unknown Urine Ketones Negative (Negative) 06/26/24 Unknown Urine Blood Negative (Negative) 06/26/24 Unknown Urine Nitrite Negative (Negative) 06/26/24 Unknown Urine Bilirubin Negative (Negative) 06/26/24 Unknown Urine Urobilinogen Negative (Negative) 06/26/24 Unknown Ur Leukocyte Esterase Negative (Negative) 06/26/24 Unknown Urine WBC (Auto) 0-5 /hpf (0-5) 06/26/24 Unknown Urine RBC (Auto) 0-2 /hpf (0-2) 06/26/24 Unknown U Hyaline Cast (Auto) 0-2 /lpf (0-2) 06/26/24 Unknown U Epithel Cells (Auto) 0-2 /hpf (0-2) 06/26/24 Unknown Urine Bacteria (Auto) None Seen (None Seen) 06/26/24 Unknown Impressions Chest X-Ray 06/26/24 09:47 XR chest 1V not portable CLINICAL HISTORY: fall TECHNIQUE: Single frontal radiograph of the chest was obtained. Comparison: None available at the time of this dictation. FINDINGS: No lines and tubes are seen. Calcified aortic knob is seen. The lungs are clear. No evidence of pleural effusion or pneumothorax. IMPRESSION: No acute chest disease. ACT 112: Negative or not required by law. Electronically signed by: Mj aSnto M.D. 06/26/2024 11:33 AM Hip/Pelvis X-Ray 06/26/24 18:36 SINGLE VIEW PELVIS; SINGLE VIEW LEFT HIP CLINICAL HISTORY: Postoperative examination. FINDINGS: An AP portable view of the hips and pelvis with a crosstable lateral portable view of the left hip are compared to study performed earlier the same day 06/26/2024. A bipolar left hip arthroplasty is in near-anatomic alignment. 2 cortical lag screws transfix the acetabular cup. No acute fracture is identif ied. There are expected postoperative changes overlying the left hip including skin clips, subcutaneous gas, a surgical drain, and soft tissue swelling. Mild arthritic change is seen in the right hip. Phleboliths are noted in the pelvis. There is atherosclerotic calcification of the femoral arteries. IMPRESSION: Expected postoperative findings status post left hip arthroplasty. No acute fracture is seen. ACT 112: Negative or not required by law. Electronically signed by: Jose G Rosen M.D. 06/26/2024 7:13 PM
[2024-06-27] MEDS: NICOTINE 14 MG/24 HR PATCH TD SCH (11:41)
[2024-06-27] MEDS: ASPIRIN 81 MG ECTAB PO SCH (11:42)
[2024-06-27] MEDS: LANTUS PER UNIT CHARGE SQ SCH (12:14)
[2024-06-27 12:28] LABS: BUN Creatinine Ratio 19.3 (10-20); Calcium 8.1 mg/dl (8.6-10.3); Creatinine Clr Calc Pharmacy 33.6 ml/min; Potassium 4.5 mmol/L (3.5-5.1)
--- NOTE | 2024-06-27 12:55 | Hospitalist Progress Note ---
Date of Service June 27, 2024 Assessment & Plan (1) Nondisplaced fracture of left femur: Plan: Patient sustained a fall onto his left side while attempting to move a tree on the morning of 06/26 Left pelvic x-ray: acute nondisplaced transcervical left femoral fracture Orthopedic surgery consult -S/p Left Total Hip Arthroplasty with Dr. Goldberg 06/27 - WBAT, abduction pillow - outpatient follow up in 2 week - ASA 81mg BID for DVT proh continue bowel regiment Pain control: Tylenol, toradol, oxycodone PT/OT - recommending rehab, CM following WBC elevation likely reactive (2) Acute kidney injury: Plan: Cr 1.04 on admission --> 1.87, unclear baseline, no prior records in our system. Of note, pt only has one functional kidney - patient tolerating PO fluids, almost 2L this AM, will continue to encourage this and defer IV fluids at this time - losartan was given PM 06/26, will hold also Na 130 --> corrected for hyperglycemia: 133 AM BMP (3) Diabetes: Plan: A1c 8.1% on 06/26 Hold pioglitazone, sitagliptin, Jardiance 06/27: Insulin regiment tightened with prolonged hyperglycemia, SSI with CF and Carb ratio. Lantus added (4) Hypertension: Plan: Continue metoprolol HS Hold Lisinopril, amlodipine Plan Chronic stable medical conditions: * Tobacco use - nicotine patch daily, encourage cessation * hx of CVA - 1988, baseline ASA 81mg daily (now BID per ortho) Dispo: continued inpatient stay DVT proh: ASA 81mg BID per ortho Admission and Anticipated Discharge Date Admission Date: June 26, 2024 Subjective Patient seen ambulating back to bed. Pain is well controlled. Has been hypergylcemic but asymptomatic. PCP manages diabetes, never been on insulin. states it has always been borderline. not passing gas or BM since surgery. Tolerating appetite and drinking fluids. Worked with therapy and recommending rehab Review of Systems Review of Systems: All systems reviewed & are unremarkable except as noted in Subjective Physical Exam Physical Exam: General: NAD, VS as above Resp: normal respiratory effort, lungs clear to auscultation CV: RRR, no murmur, Abd: normal bowel sounds, non tender, no hepatosplenomegaly Extremities: Moves all extremities, hip dressing c/d/i, trace LE edema Neuro: A&O x3, Results & Data Results & Data Vital Signs (Past 12 Hours) Vital Signs Temp Pulse Resp BP Pulse Ox O2 Del Method 06/27/24 11:35 97.2 F L 66 18 124/63 96 Room Air 06/27/24 07:48 97.5 F L 66 16 131/73 95 Room Air 06/27/24 04:03 97.5 F L 75 18 134/71 93 Room Air Laboratory Results CBC and BMP reviewed PG Care Time/CCT Total # of Minutes Spent Total Time Spent with Patient: Total time spent is greater than 50% in coordination of care (as documented) at patient's floor/unit and/or counseling patient: Coding Level of Care Code 72086 SUB INP/OBS CARE 3/50MIN Diagnoses Nondisplaced fracture of left femur S72.92XA Acute kidney injury N17.9 Diabetes E11.9 Hypertension I10 Hypertension type: unspecified (4) Hypertension Hypertension type: unspecified Qualified Code(s): I10 - Essential (primary) hypertension
[2024-06-27] MEDS: MELATONIN 3 MG TAB PO PRN (20:34)
[2024-06-28] MEDS: COUGH DROP (SUGAR FREE) LOZ 24 LOZ/1 BOX BUCCAL ONE (05:55)
[2024-06-28 06:25] LABS: Basophils # (auto) 0.04 K/uL (0.00-0.20); Basophils % (auto) 0.4 %; Eosinophils # (auto) 0.16 K/uL (0.00-0.50); Eosinophils % (auto) 1.8 %; Hematocrit (blood only) 37.4 % (42.0-52.0); Hemoglobin 12.5 g/dl (14.0-18.0); Immature Granulocytes # (auto) 0.04 K/uL (0.01-0.20); Immature Granulocytes % (auto) 0.4 %; Lymphocytes # (auto) 2.09 K/uL (1.20-3.40); Lymphocytes % (auto) 22.9 %; Mean Corpuscular Hemoglobin 32.1 pg (25.0-34.0); Mean Corpuscular Hgb Conc 33.4 g/dL (32.0-36.0); Mean Corpuscular Volume 96.1 fL (80.0-100.0); Mean Platelet Volume 10.3 fL (9.4-12.4); Monocytes # (auto) 0.59 K/uL (0.11-0.59); Monocytes % (auto) 6.5 %; Platelet Count 168 K/uL (130-400); RDW Coefficient of Variation 12.8 % (11.5-14.5); RDW Standard Deviation 45.1 fL (36.4-46.3); Red Blood Count 3.89 M/uL (4.70-6.10); White Blood Count 9.12 K/ul (4.8-10.8)
[2024-06-28 06:38] LABS: BUN Creatinine Ratio 24.9 (10-20); Calcium 8.1 mg/dl (8.6-10.3); Creatinine Clr Calc Pharmacy 35.5 ml/min; Potassium 4.5 mmol/L (3.5-5.1)
[2024-06-28] MEDS ORDERED: LACTATED RINGER'S 500 ML IV ONE (08:22)
[2024-06-28] MEDS: LACTATED RINGER'S 500 ML IV ONE (10:07)
--- NOTE | 2024-06-28 11:26 | Hospitalist Progress Note ---
Date of Service June 28, 2024 Assessment & Plan (1) Nondisplaced fracture of left femur: Plan: Patient sustained a fall onto his left side while attempting to move a tree on the morning of 06/26 Left pelvic x-ray: acute nondisplaced transcervical left femoral fracture Orthopedic surgery consult -S/p Left Total Hip Arthroplasty with Dr. Goldberg 06/27 - WBAT, abduction pillow - outpatient follow up in 2 week - ASA 81mg BID for DVT proh continue bowel regiment Pain control: Tylenol, toradol, oxycodone PT/OT - recommending rehab, CM following Vit D level AM (2) Acute kidney injury: Plan: Cr 1.04 on admission --> 1.87, unclear baseline, no prior records in our system. Of note, pt only has one functional kidney - 500cc LR bolus given 06/28 given continued Dilshad - continue to encourage PO fluids - losartan was given PM 06/26, continue to hold Cr now 1.7 AM BMP (3) Diabetes: Plan: A1c 8.1% on 06/26 Hold pioglitazone, sitagliptin, Jardiance 06/27: Insulin regiment tightened with prolonged hyperglycemia, SSI with CF and Carb ratio. Lantus added BSG with improvement - will need regiment adjusted outpatient (4) Hypertension: Plan: Continue metoprolol HS Hold Lisinopril, amlodipine Plan Chronic stable medical conditions: * Tobacco use - nicotine patch daily, encourage cessation * hx of CVA - 1988, baseline ASA 81mg daily (now BID per ortho) Dispo: continued inpatient stay DVT proh: ASA 81mg BID per ortho Admission and Anticipated Discharge Date Admission Date: June 26, 2024 Subjective Patient seen resting in bed. more hip pain today. is passing gas, no BM does not know his baseline kidney function, urine is not dark Review of Systems Review of Systems: All systems reviewed & are unremarkable except as noted in Subjective Physical Exam Physical Exam: General: NAD, VS as above Resp: normal respiratory effort, lungs clear to auscultation CV: RRR, no murmur, Abd: normal bowel sounds, non tender, no hepatosplenomegaly Extremities: Moves all extremities,able to wiggle toes b/l hip dressing c/d/i, trace LE edema Neuro: A&O x3, Results & Data Results & Data Vital Signs (Past 12 Hours) Vital Signs Temp Pulse Resp BP Pulse Ox O2 Del Method 06/28/24 07:23 98.2 F 76 16 124/71 93 Room Air Laboratory Results CBC and bmp reviewed PG Care Time/CCT Total # of Minutes Spent Total Time Spent with Patient: Total time spent is greater than 50% in coordination of care (as documented) at patient's floor/unit and/or counseling patient: Coding Level of Care Code 27808 SUB INP/OBS CARE 3/50MIN Diagnoses Nondisplaced fracture of left femur S72.92XA Acute kidney injury N17.9 Diabetes E11.9 Hypertension I10 Hypertension type: unspecified (4) Hypertension Hypertension type: unspecified Qualified Code(s): I10 - Essential (primary) hypertension
--- NOTE | 2024-06-28 11:51 | Orthopedic Progress Note ---
Date of Service June 28, 2024 Assessment & Plan (1) S/P total left hip arthroplasty: Plan: Post op day 2 left total hip arthroplasty Awaiting rehab placement. Dressing change yesterday 06/27, today Silverlon dressing without any drainage or leakage, will leave in place. Continue anterior hip precautions and abduction pillow when in bed. Weightbearing as tolerated with walker assistance PT/OT DVT prophylaxis with ZEYNEP stockings and aspirin Pain controlled p.o. medication Ice with easy wrap 2 week follow up appointment scheduled With questions contact our clinic at [phone] Admission and Anticipated Discharge Date Admission Date: June 26, 2024 Subjective Patient is post op day 2 after having a left total hip arthroplasty secondary to a femoral neck fracture. He was seen in his room sitting in his chair. His dressing was changed yesterday to silverlon and he denies any drainage or seepage from the wound. He has some increased pain today which was improved after receiving pain medication. He was up with physical therapy and was able to ambulate. Has been using the hip abduction pillow when in bed and has been following hip precautions. He has been eating at meal time. Denies any numbness or tingling in his toes and is moving all of his toes and ankle without any difficulty. He is currently awaiting rehab placement. Physical Exam Constitutional: Well developed, resting comfortably, sitting upright in chair. Pleasant. Cardiovascular: Left DP and PT pulses 2+ Musculoskeletal: Left lower extremity: anterolateral incision is covered with silverlon dressing. ZEYNEP knee high stocking in place. The dressing is clean and dry with no drainage. The hip soft tissues are soft without ecchymosis. Moves all toes. Strength 5+ with ankle plantar flexion, dorsiflexion, eversion, and inversion. No calf tenderness. No calf swelling. No significant edema in the extremity. Neurologic: No sensory deficits in left toes to light touch Results & Data Vital Signs (Past 12 Hours) Vital Signs Temp Pulse Resp BP Pulse Ox O2 Del Method 06/28/24 07:23 98.2 F 76 16 124/71 93 Room Air Laboratory Results 06/28/24 06/28/24 06/28/24 11:49 07:31 06:04 WBC 9.12 RBC 3.89 L Hgb 12.5 L Hct 37.4 L MCV 96.1 MCH 32.1 MCHC 33.4 RDW Std Deviation 45.1 RDW Coeff of Dhaval 12.8 Plt Count 168 MPV 10.3 Immature Gran % (Auto) 0.4 Neut % (Auto) 68.0 Lymph % (Auto) 22.9 [place] % (Auto) 6.5 Eos % (Auto) 1.8 Baso % (Auto) 0.4 Neut # (Auto) 6.20 Lymph # (Auto) 2.09 [place] # (Auto) 0.59 Eos # (Auto) 0.16 Baso # (Auto) 0.04 Immature Gran # (Auto) 0.04 Sodium 133 L Potassium 4.5 Chloride 103 Carbon Dioxide 21 Anion Gap 9 BUN 44 H Creatinine 1.77 H Est Cr Clr Drug Dosing 35.5 eGFR 38.35 BUN/Creatinine Ratio 24.9 H Glucose 126 H POC Glucose 201 H 147 H Calcium 8.1 L 06/27/24 06/27/24 06/27/24 20:28 16:30 11:45 WBC RBC Hgb Hct MCV MCH MCHC RDW Std Deviation RDW Coeff of Dhaval Plt Count MPV Immature Gran % (Auto) Neut % (Auto) Lymph % (Auto) [place] % (Auto) Eos % (Auto) Baso % (Auto) Neut # (Auto) Lymph # (Auto) [place] # (Auto) Eos # (Auto) Baso # (Auto) Immature Gran # (Auto) Sodium 130 L D Potassium 4.5 Chloride 97 L Carbon Dioxide 23 Anion Gap 10 BUN 36 H Creatinine 1.87 H D Est Cr Clr Drug Dosing 33.6 eGFR 35.90 BUN/Creatinine Ratio 19.3 Glucose 230 H POC Glucose 79 152 H Calcium 8.1 L Diagnostic Findings Hip/Pelvis X-Ray 06/26/24 09:47 XR hip LT 2V w pelvis HISTORY: 79 years-old Male fall l hip pain acute left pain status post fall COMPARISON: None TECHNIQUE: AP view of the pelvis with 2 views of the left hip FINDINGS: Moderate osteoarthritis of the hips. Multilevel degenerative changes of the lumbar spine. There is an acute nondisplaced transcervical left femoral fracture. No dislocation, or additional acute fracture identified. The bony pelvis appears intact. IMPRESSION: Acute nondisplaced transcervical left femoral fracture. ACT 112: Negative or not required by law. The above report was generated using voice recognition software. It may contain grammatical, syntax or spelling errors. Electronically signed by: Kurtis Phillips M.D. 06/26/2024 11:16 AM Hip/Pelvis X-Ray 06/26/24 18:36 SINGLE VIEW PELVIS; SINGLE VIEW LEFT HIP CLINICAL HISTORY: Postoperative examination. FINDINGS: An AP portable view of the hips and pelvis with a crosstable lateral portable view of the left hip are compared to study performed earlier the same day 06/26/2024. A bipolar left hip arthroplasty is in near-anatomic alignment. 2 cortical lag screws transfix the acetabular cup. No acute fracture is identified. There are expected postoperative changes overlying the left hip including skin clips, subcutaneous gas, a surgical drain, and soft tissue swelling. Mild arthritic change is seen in the right hip. Phleboliths are noted in the pelvis. There is atherosclerotic calcification of the femoral arteries. IMPRESSION: Expected postoperative findings status post left hip arthroplasty. No acute fracture is seen. ACT 112: Negative or not required by law. Electronically signed by: Jose G Rosen M.D. 06/26/2024 7:13 PM
[2024-06-28] MEDS: MAGNESIUM HYDROXIDE SUSP 30 ML UDC PO PRN (20:37)
[2024-06-29] MEDS: MoRPHine SULFATE 2 MG/ML CARP IV PRN (04:39)
[2024-06-29 06:35] LABS: Basophils # (auto) 0.03 K/uL (0.00-0.20); Basophils % (auto) 0.4 %; Eosinophils # (auto) 0.17 K/uL (0.00-0.50); Eosinophils % (auto) 2.2 %; Hematocrit (blood only) 34.9 % (42.0-52.0); Immature Granulocytes # (auto) 0.04 K/uL (0.01-0.20); Immature Granulocytes % (auto) 0.5 %; Lymphocytes # (auto) 1.61 K/uL (1.20-3.40); Lymphocytes % (auto) 21.3 %; Mean Corpuscular Hemoglobin 32.7 pg (25.0-34.0); Mean Corpuscular Hgb Conc 34.4 g/dL (32.0-36.0); Mean Corpuscular Volume 95.1 fL (80.0-100.0); Mean Platelet Volume 10.8 fL (9.4-12.4); Monocytes % (auto) 7.9 %; Neutrophils # (auto) 5.11 K/uL (1.40-6.50); Neutrophils % (auto) 67.7 %; Platelet Count 148 K/uL (130-400); RDW Standard Deviation 45.6 fL (36.4-46.3); Red Blood Count 3.67 M/uL (4.70-6.10); White Blood Count 7.56 K/ul (4.8-10.8)
[2024-06-29 07:05] LABS: BUN Creatinine Ratio 30.4 (10-20); Calcium 7.7 mg/dl (8.6-10.3); Creatinine Clr Calc Pharmacy 39.7 ml/min; Potassium 4.7 mmol/L (3.5-5.1)
--- NOTE | 2024-06-29 09:46 | Orthopedic Progress Note ---
Date of Service June 29, 2024 Assessment & Plan (1) S/P total left hip arthroplasty: Plan: Post op day 3 left total hip arthroplasty with Dr. Goldberg Silverlon dressing in place. Left in place today. Encouraged elevation of left leg to reduce edema Continue anterior hip precautions and abduction pillow when in bed. Weightbearing as tolerated with walker assistance PT/OT DVT prophylaxis with RBANDEN stockings and aspirin Pain controlled p.o. medication Ice with easy wrap Case management for disposition needs. Inpatient rehab vs SNF placement pending. With questions contact our clinic at [phone] (2) Pain of left heel: Plan: Concerns for developing a pressure sore on left heel. Skin currently healthy Encouraged elevation of heels off bed at all times. Heel pads in place. Pillow placed under left leg to elevate left heel off of bed. Notices relief immediately. Will continue to monitor. Admission and Anticipated Discharge Date Admission Date: June 26, 2024 Subjective Patient is sitting up in bed. Doing well. No complaints of pain at rest. States when he tries to move his leg he does have pain in the hip as well as ends of the thigh. He notes some swelling of his knee. He is also complaining of some left heel pain. Yesterday they did put on some heel pads as well as a pillow under his foot that does seem to help. He has been out of bed with physical therapy. States he is gone to the bathroom and feels that he does okay out of bed. He is hoping to go to [facility]. Physical Exam Musculoskeletal: Exam of his left hip: His Silverlon dressing is in place. Mild edema throughout the thigh and into the left knee. He is able to independently straight leg raise about an inch off the bed. He tolerates logrolling of his left leg. Tolerates passive flexion of the knee. Calf is supple and nontender. Full ankle range of motion and normal strength. Dorsalis pedis and posterior tibial pulses are 1+. His Branden stocking is in place. This was removed today as well as the heel pad. That he will skin is nontender to palpation. No erythema or skin breakdown. No blistering present. Results & Data Vital Signs (Past 12 Hours) Vital Signs Temp Pulse Resp BP Pulse Ox O2 Del Method 06/29/24 07:34 36.8 C 82 16 109/62 94 Room Air Laboratory Results 06/29/24 06/29/24 06/28/24 Range/Units 07:31 06:13 20:27 WBC 7.56 (4.8-10.8) K/ul RBC 3.67 L (4.70-6.10) M/uL Hgb 12.0 L (14.0-18.0) g/dl Hct 34.9 L (42.0-52.0) % MCV 95.1 (80.0-100.0) fL MCH 32.7 (25.0-34.0) pg MCHC 34.4 (32.0-36.0) g/dL RDW Std Deviation 45.6 (36.4-46.3) fL RDW Coeff of Dhaval 13.0 (11.5-14.5) % Plt Count 148 (130-400) K/uL MPV 10.8 (9.4-12.4) fL Immature Gran % (Auto) 0.5 % Neut % (Auto) 67.7 % Lymph % (Auto) 21.3 % [place] % (Auto) 7.9 % Eos % (Auto) 2.2 % Baso % (Auto) 0.4 % Neut # (Auto) 5.11 (1.40-6.50) K/uL Lymph # (Auto) 1.61 (1.20-3.40) K/uL [place] # (Auto) 0.60 H (0.11-0.59) K/uL Eos # (Auto) 0.17 (0.00-0.50) K/uL Baso # (Auto) 0.03 (0.00-0.20) K/uL Immature Gran # (Auto) 0.04 (0.01-0.20) K/uL Sodium 135 L (136-145) mmol/L Potassium 4.7 (3.5-5.1) mmol/L Chloride 106 (98-107) mmol/L Carbon Dioxide 22 (21-32) mmol/L Anion Gap 7 (3-11) BUN 48 H (6-23) mg/dl Creatinine 1.58 H (0.6-1.4) mg/dl Est Cr Clr Drug Dosing 39.7 ml/min eGFR 43.94 BUN/Creatinine Ratio 30.4 H (10-20) Glucose 171 H (70-99(Fasting)) mg/dl POC Glucose 171 H 150 H (70-99) mg/dl Calcium 7.7 L (8.6-10.3) mg/dl 25-OH Vitamin D Total 14.1 L (30-100) ng/ml 06/28/24 06/28/24 Range/Units 16:39 11:49 WBC (4.8-10.8) K/ul RBC (4.70-6.10) M/uL Hgb (14.0-18.0) g/dl Hct (42.0-52.0) % MCV (80.0-100.0) fL MCH (25.0-34.0) pg MCHC (32.0-36.0) g/dL RDW Std Deviation (36.4-46.3) fL RDW Coeff of Dhaval (11.5-14.5) % Plt Count (130-400) K/uL MPV (9.4-12.4) fL Immature Gran % (Auto) % Neut % (Auto) % Lymph % (Auto) % [place] % (Auto) % Eos % (Auto) % Baso % (Auto) % Neut # (Auto) (1.40-6.50) K/uL Lymph # (Auto) (1.20-3.40) K/uL [place] # (Auto) (0.11-0.59) K/uL Eos # (Auto) (0.00-0.50) K/uL Baso # (Auto) (0.00-0.20) K/uL Immature Gran # (Auto) (0.01-0.20) K/uL Sodium (136-145) mmol/L Potassium (3.5-5.1) mmol/L Chloride (98-107) mmol/L Carbon Dioxide (21-32) mmol/L Anion Gap (3-11) BUN (6-23) mg/dl Creatinine (0.6-1.4) mg/dl Est Cr Clr Drug Dosing ml/min eGFR BUN/Creatinine Ratio (10-20) Glucose (70-99(Fasting)) mg/dl POC Glucose 159 H 201 H (70-99) mg/dl Calcium (8.6-10.3) mg/dl 25-OH Vitamin D Total (30-100) ng/ml
[2024-06-29] MEDS: CHOLECALCIFEROL 125 MCG (5,000 UNITS) TAB PO SCH (10:26)
--- NOTE | 2024-06-29 12:22 | Hospitalist Progress Note ---
Date of Service June 29, 2024 Assessment & Plan (1) Nondisplaced fracture of left femur: Plan: Patient sustained a fall onto his left side while attempting to move a tree on the morning of 06/26 Left pelvic x-ray: acute nondisplaced transcervical left femoral fracture Orthopedic surgery consult -S/p Left Total Hip Arthroplasty with Dr. Goldberg 06/27 - WBAT, abduction pillow - outpatient follow up in 2 week - ASA 81mg BID for DVT proh Vit D level: 14.1, takes 25mcg at home, will increase to 125mcg daily while here, resume home dose at d/c continue bowel regiment Pain control: Tylenol, oxycodone PT/OT - recommending rehab, CM following Vit D level AM (2) Acute kidney injury: Plan: Cr 1.04 on admission --> 1.87, unclear baseline, no prior records in our system. Of note, pt only has one functional kidney - 500cc LR bolus given 06/28 given continued Dilshad - continue to encourage PO fluids - losartan was given PM 06/26, continue to hold Cr now 1.5 AM BMP (3) Diabetes: Plan: A1c 8.1% on 06/26 Hold pioglitazone, sitagliptin, Jardiance 06/27: Insulin regiment tightened with prolonged hyperglycemia, SSI with CF and Carb ratio. Lantus added BSG with improvement - will need regiment adjusted outpatient (4) Hypertension: Plan: Continue metoprolol HS Hold Lisinopril, amlodipine Plan Chronic stable medical conditions: * Tobacco use - nicotine patch daily, encourage cessation * hx of CVA - 1988, baseline ASA 81mg daily (now BID per ortho) Dispo: continued inpatient stay DVT proh: ASA 81mg BID per ortho Admission and Anticipated Discharge Date Admission Date: June 26, 2024 Subjective Patient seen sititng up in the chair after lunch. Pain controlled at rest, did have a bowel movement this morning. confirms that he takes Vit D supplementation at home Review of Systems Review of Systems: All systems reviewed & are unremarkable except as noted in Subjective Physical Exam Physical Exam: General: NAD, VS as above Resp: normal respiratory effort, lungs clear to auscultation CV: RRR, no murmur, Abd: normal bowel sounds, non tender, no hepatosplenomegaly Extremities: Moves all extremities,able to wiggle toes b/l hip dressing c/d/i, trace LE edema Neuro: A&O x3, Results & Data Results & Data Vital Signs (Past 12 Hours) Vital Signs Temp Pulse Resp BP Pulse Ox O2 Del Method 06/29/24 11:07 97.5 F L 75 16 104/57 L 96 Room Air 06/29/24 07:40 Room Air 06/29/24 07:34 98.2 F 82 16 109/62 94 Room Air Laboratory Results BMP, BSG and Vit D level reviewed PG Care Time/CCT Total # of Minutes Spent Total Time Spent with Patient: Total time spent is greater than 50% in coordination of care (as documented) at patient's floor/unit and/or counseling patient: Coding Level of Care Code 04018 SUB INP/OBS CARE 3/50MIN Diagnoses Nondisplaced fracture of left femur S72.92XA Acute kidney injury N17.9 Diabetes E11.9 Hypertension I10 Hypertension type: unspecified (4) Hypertension Hypertension type: unspecified Qualified Code(s): I10 - Essential (primary) hypertension
[2024-06-30] MEDS: ONDANSETRON INJ 2 MG/ML 2 ML VIAL IV PRN (00:37)
[2024-06-30 09:05] LABS: BUN Creatinine Ratio 33.1 (10-20); Calcium 8.1 mg/dl (8.6-10.3); Creatinine Clr Calc Pharmacy 40.7 ml/min; Potassium 4.7 mmol/L (3.5-5.1)
--- NOTE | 2024-06-30 13:39 | Hospitalist Progress Note ---
Date of Service June 30, 2024 Assessment & Plan (1) Nondisplaced fracture of left femur: Plan: Patient sustained a fall onto his left side while attempting to move a tree on the morning of 06/26 Left pelvic x-ray: acute nondisplaced transcervical left femoral fracture Orthopedic surgery consult -S/p Left Total Hip Arthroplasty with Dr. Goldberg 06/27 - WBAT, abduction pillow - outpatient follow up in 2 week - ASA 81mg BID for DVT proh Vit D level: 14.1, takes 25mcg at home, will increase to 125mcg daily while here, resume home dose at d/c continue bowel regimen, added Miralax BID 06/30. Plan to continue this regimen until patient has BM then can titrate back down on dosing. Pain control: Tylenol, oxycodone PT/OT - recommending rehab, CM following Vit D level 06/30 reviewed: 14.1. - continue Vitamin D supplementation. (2) Acute kidney injury: Plan: Cr 1.04 on admission --> 1.54 (06/30), unclear baseline, no prior records in our system. Of note, pt only has one functional kidney - 500cc LR bolus given 06/28 given continued CHRISTIAN - continue to encourage PO fluids - losartan was given PM 06/26, continue to hold BMP reviewed 06/30: Cr now 1.54 AM BMP (3) Diabetes: Plan: A1c 8.1% on 06/26 Hold pioglitazone, sitagliptin, Jardiance 06/27: Insulin regiment tightened with prolonged hyperglycemia, SSI with CF and Carb ratio. Lantus added BSG with improvement - will need regiment adjusted outpatient (4) Hypertension: Plan: Continue metoprolol HS Hold Lisinopril, amlodipine Plan Chronic stable medical conditions: * Tobacco use - nicotine patch daily, encourage cessation * hx of CVA - 1988, baseline ASA 81mg daily (now BID per ortho) Dispo: pending placement. DVT proh: ASA 81mg BID per ortho Did P2P 06/30 and was denied. CM following for rehab placement. Admission and Anticipated Discharge Date Admission Date: June 26, 2024 Subjective Patient seen and examined this morning. Patient denied CP, SOB, or difficulty urinating. Patient states he has had issues with moving his bowels since surgery. Reports abdominal bloating. Discussed adding additional agent for bowel regimen. Patient is anxious to be discharged to rehab facility. Physical Exam Constitutional: WD/WN, vitals as above Eyes: PERRL, conjunctivae normal, anicteric sclerae Respiratory: breathing unlabored Cardiovascular: well perfused Skin: no rashes, warm and dry Psychiatric: A+Ox3, euthymic affect Results & Data Results & Data Vital Signs (Past 12 Hours) Vital Signs Temp Pulse Resp BP Pulse Ox O2 Del Method 06/30/24 07:45 Room Air 06/30/24 07:13 36.4 C L 74 16 98/59 L 94 Room Air PG Care Time/CCT Total # of Minutes Spent Total Time Spent with Patient: Total time spent is greater than 50% in coordination of care (as documented) at patient's floor/unit and/or counseling patient: Coding Level of Care Code 84885 SUB INP/OBS CARE 2/35MIN Diagnoses Nondisplaced fracture of left femur S72.92XA Acute kidney injury N17.9 Diabetes E11.9 Hypertension I10 Hypertension type: unspecified (4) Hypertension Hypertension type: unspecified Qualified Code(s): I10 - Essential (primary) hypertension
[2024-06-30] MEDS: POLYETHYLENE (MIRALAX) 17 GM PACK PO SCH (21:05)
[2024-07-01 07:33] LABS: BUN Creatinine Ratio 29.8 (10-20); Calcium 8.3 mg/dl (8.6-10.3); Creatinine Clr Calc Pharmacy 32.9 ml/min
[2024-07-01 09:47] LABS: Basophils # (auto) 0.03 K/uL (0.00-0.20); Basophils % (auto) 0.5 %; Eosinophils # (auto) 0.24 K/uL (0.00-0.50); Eosinophils % (auto) 4.3 %; Hematocrit (blood only) 35.5 % (42.0-52.0); Immature Granulocytes # (auto) 0.02 K/uL (0.01-0.20); Immature Granulocytes % (auto) 0.4 %; Lymphocytes # (auto) 1.61 K/uL (1.20-3.40); Mean Corpuscular Hemoglobin 32.3 pg (25.0-34.0); Mean Corpuscular Hgb Conc 33.8 g/dL (32.0-36.0); Mean Corpuscular Volume 95.7 fL (80.0-100.0); Mean Platelet Volume 11.2 fL (9.4-12.4); Monocytes % (auto) 12.6 %; Neutrophils # (auto) 2.96 K/uL (1.40-6.50); Neutrophils % (auto) 53.2 %; Platelet Count 249 K/uL (130-400); RDW Standard Deviation 45.6 fL (36.4-46.3); Red Blood Count 3.71 M/uL (4.70-6.10); White Blood Count 5.56 K/ul (4.8-10.8)
[2024-07-01 09:51] LABS: C Reactive Protein 36.39 mg/dl (0-0.5)
--- NOTE | 2024-07-01 10:20 | XRay Report ---
XR KUB/Abdomen 1 view CLINICAL HISTORY: constipation TECHNIQUE: 1 view of the abdomen was obtained. Comparison: Comparison is made to CT abdomen 04/12/2007 FINDINGS: Lung bases are unremarkable. Degenerative changes are seen in the visualized skeleton. Left hip arthr oplasty is seen. The bowel gas pattern is nonobstructive. A moderate amount of stool is noted within the large bowel. IMPRESSION: Nonobstructive bowel gas pattern. ACT 112: Negative or not required by law. Electronically signed by: Mj Santo M.D. 07/01/2024 10:19 AM
[2024-07-01] MEDS: SODIUM CHLORIDE 0.9% 1,000 ML IV SCH (10:50)
--- NOTE | 2024-07-01 14:24 | Hospitalist Progress Note ---
Date of Service July 01, 2024 Assessment & Plan (1) Nondisplaced fracture of left femur: Plan: Patient sustained a fall onto his left side while attempting to move a tree on the morning of 06/26 Left pelvic x-ray: acute nondisplaced transcervical left femoral fracture Orthopedic surgery consult -S/p Left Total Hip Arthroplasty with Dr. Goldberg 06/27 - WBAT, abduction pillow - outpatient follow up in 2 week - ASA 81mg BID for DVT proh Vit D level: 14.1, takes 25mcg at home, will increase to 125mcg daily while here, resume home dose at d/c continue bowel regimen, added Miralax BID 06/30. Plan to continue this regimen until patient has BM then can titrate back down on dosing. KUB reviewed 07/01: nonobstructive bowel gas pattern Pain control: Tylenol, oxycodone PT/OT - recommending rehab, CM following Vit D level 06/30 reviewed: 14.1. - continue Vitamin D supplementation. (2) Acute kidney injury: Plan: Cr 1.04 on admission --> 1.91 (07/01), unclear baseline, no prior records in our system. Of note, pt only has one functional kidney - 500cc LR bolus given 06/28 given continued CHRISTIAN - continue to encourage PO fluids - losartan was given PM 06/26, continue to hold BMP reviewed 07/01: Cr now 1.91, BUN 57, sodium 135 additional 1L fluid given 07/01. CBC reviewed 07/01: hgb stable at 12, WBC WNL AM BMP (3) Diabetes: Plan: A1c 8.1% on 06/26 Hold pioglitazone, sitagliptin, Jardiance 06/27: Insulin regiment tightened with prolonged hyperglycemia, SSI with CF and Carb ratio. Lantus added BSG with improvement - will need regiment adjusted outpatient (4) Hypertension: Plan: Continue metoprolol HS Hold Lisinopril, amlodipine Plan Chronic stable medical conditions: * Tobacco use - nicotine patch daily, encourage cessation * hx of CVA - 1988, baseline ASA 81mg daily (now BID per ortho) Dispo: pending placement. DVT proh: ASA 81mg BID per ortho Did P2P 06/30 and was denied. CM following for rehab placement. Admission and Anticipated Discharge Date Admission Date: June 26, 2024 Subjective Patient seen and examined this morning. patient denied any pain this AM. States he was able to ambulate to the bathroom by himself overnight. patient still w/o BM x about 2 days now. Reports decreased appetite and bloating. Patient is passing flatus. Physical Exam Constitutional: WD/WN, vitals as above Eyes: PERRL, conjunctivae normal, anicteric sclerae Respiratory: breathing unlabored Cardiovascular: well perfused Gastrointestinal (Abdomen): negative abdominal tenderness. + BS Psychiatric: A+Ox3, euthymic affect Results & Data Results & Data Vital Signs (Past 12 Hours) Vital Signs Temp Pulse Resp BP Pulse Ox O2 Del Method 07/01/24 07:45 Room Air 07/01/24 07:07 36.4 C L 74 16 121/67 96 Room Air PG Care Time/CCT Total # of Minutes Spent Total Time Spent with Patient: Total time spent is greater than 50% in coordination of care (as documented) at patient's floor/unit and/or counseling patient: Coding Level of Care Code 78736 SUB INP/OBS CARE 235MIN Diagnoses Nondisplaced fracture of left femur S72.92XA Acute kidney injury N17.9 Diabetes E11.9 Hypertension I10 Hypertension type: unspecified (4) Hypertension Hypertension type: unspecified Qualified Code(s): I10 - Essential (primary) hypertension
[2024-07-01] MEDS: bisacodyL 10 MG SUPP PR PRN (18:40)
[2024-07-02 06:57] LABS: BUN Creatinine Ratio 33.1 (10-20); Creatinine Clr Calc Pharmacy 43.3 ml/min; Potassium 5.1 mmol/L (3.5-5.1)
[2024-07-02 09:05] LABS: C Reactive Protein 31.64 mg/dl (0-0.5)
--- NOTE | 2024-07-02 14:41 | Hospitalist Progress Note ---
Date of Service July 02, 2024 Assessment & Plan (1) Nondisplaced fracture of left femur: Plan: Patient sustained a fall onto his left side while attempting to move a tree on the morning of 06/26 Left pelvic x-ray: acute nondisplaced transcervical left femoral fracture Orthopedic surgery consult -S/p Left Total Hip Arthroplasty with Dr. Goldberg 06/27 - WBAT, abduction pillow - outpatient follow up in 2 week - ASA 81mg BID for DVT proh Vit D level: 14.1, takes 25mcg at home, will increase to 125mcg daily while here, resume home dose at d/c continue bowel regimen, added Miralax BID 06/30. KUB reviewed 07/01: nonobstructive bowel gas pattern Pain control: Tylenol, oxycodone PT/OT - recommending rehab, CM following Vit D level 06/30 reviewed: 14.1. - continue Vitamin D supplementation. (2) Acute kidney injury: Plan: Cr 1.04 on admission --> 1.91 (07/01), unclear baseline, no prior records in our system. Of note, pt only has one functional kidney - 1.5L IVF given during hospital stay thus far. - continue to encourage PO fluids - losartan was given PM 06/26, continue to hold BMP reviewed 07/02: Cr now 1.45, BUN 48, sodium 136 CBC 07/01: hgb stable at 12, WBC WNL AM BMP (3) Diabetes: Plan: A1c 8.1% on 06/26 Hold pioglitazone, sitagliptin, Jardiance 06/27: Insulin regiment tightened with prolonged hyperglycemia, SSI with CF and Carb ratio. Lantus added BSG with improvement - will need regiment adjusted outpatient (4) Hypertension: Plan: Continue metoprolol HS Hold Lisinopril, amlodipine Plan Chronic stable medical conditions: * Tobacco use - nicotine patch daily, encourage cessation * hx of CVA - 1988, baseline ASA 81mg daily (now BID per ortho) Dispo: pending placement. DVT proh: ASA 81mg BID per ortho Did P2P 06/30 and was denied. CM following for rehab placement. Updated daughter via phone 07/02. Admission and Anticipated Discharge Date Admission Date: June 26, 2024 Subjective Patient seen and examined this morning. Patient reports 2 bowel movements and felt that his abdominal bloating/tenderness has lessened. He did admit to lower abdominal cramping. Denied any leg pain at time of encounter. Physical Exam 2 Constitutional: WD/WN, vitals as above Eyes: PERRL, conjunctivae normal, anicteric sclerae Respiratory: breathing unlabored Cardiovascular: well perfused Psychiatric: A+Ox3, euthymic affect Results & Data Results & Data Vital Signs (Past 12 Hours) Vital Signs Temp Pulse Resp BP Pulse Ox O2 Del Method 07/02/24 06:58 36.8 C 72 16 151/76 H 94 Room Air Laboratory Results 07/01/24 06:55 07/02/24 06:11 PG Care Time/CCT Total # of Minutes Spent Total Time Spent with Patient: Total time spent is greater than 50% in coordination of care (as documented) at patient's floor/unit and/or counseling patient: Coding Level of Care Code 95922 SUB INP/OBS CARE 2/35MIN Diagnoses Nondisplaced fracture of left femur S72.92XA Acute kidney injury N17.9 Diabetes E11.9 Hypertension I10 Hypertension type: unspecified (4) Hypertension Hypertension type: unspecified Qualified Code(s): I10 - Essential (primary) hypertension
[2024-07-03 00:16] VITALS: TEMP 98.1
[2024-07-03 07:20] LABS: BUN Creatinine Ratio 28.3 (10-20); Calcium 8.3 mg/dl (8.6-10.3); Creatinine Clr Calc Pharmacy 49.4 ml/min; Potassium 4.9 mmol/L (3.5-5.1)
[2024-07-03 08:00] VITALS: BP 154/80; PULSE 79; RESP 16; O2SAT 95
--- NOTE | 2024-07-03 14:10 | Discharge Summary ---
Discharge Summary Date of Service July 03, 2024 Principal Dx & Hospital Course #1 = Principal Diagnosis (1) Nondisplaced fracture of left femur: Patient sustained a fall onto his left side while attempting to move a tree on the morning of 06/26 Left pelvic x-ray: acute nondisplaced transcervical left femoral fracture Orthopedic surgery consult -S/p Left Total Hip Arthroplasty with Dr. Goldberg 06/27 - outpatient follow up in 2 week - ASA 81mg BID for DVT proh continue bowel regimen upon discharge until patient can effectively move his bowels or stop using oxycodone. KUB reviewed 07/01: nonobstructive bowel gas pattern Pain control: Tylenol, oxycodone Vit D level : 14.1. - continue Vitamin D supplementation. (2) Acute kidney injury: Cr 1.04 on admission --> 1.91 (07/01), unclear baseline, no prior records in our system. Of note, pt only has one functional kidney - 1.5L IVF given during hospital stay - continue to encourage PO fluids -Creatinine returned to WNL, resume BP medications on discharge. (3) Diabetes: A1c 8.1% on 06/26 Resume pioglitazone, sitagliptin, Jardiance on discharge. Defer adjustment of medications to patient's PCP. - patient was not on PO diab etic medications inpatient but may be resumed on discharge. Sliding scale and Lantus were used inpatient. (4) Hypertension: Continue metoprolol HS Resume Amlodipine and Lisinopril on discharge. Plan Chronic stable medical conditions: * Tobacco use - nicotine patch daily, encourage cessation * hx of CVA - 1988, baseline ASA 81mg daily (now BID per ortho) Discussed discharge plan with daughter at bedside 07/03. Admission HPI Per Admitting Provider Jung is a pleasant 79-year-old male with borderline diabetes, HTN, CVA, severe migraines, and 1 kidney (unclear if this is congenital). He presented on 06/26 after sustaining a fall this morning. He was out hunting this morning, when he came across a rotten tree in the road. He attempted to move at this tree, but the tree came apart and he took a hard fall onto his left side. He has been having significant pain in his left hip since. No head strike or LOC. He is currently taking aspirin 81 mg daily. He denies PMH of heart failure, DVT/PE, insulin use, or ND. He has history of a stroke at 44 years old, that had left-sided deficits at first, but he reports no residual deficits at this time; takes aspirin daily and reports that he took it this morning. Patient took all of his regular morning medications today. He did eat toast and a banana this morning around 6 AM. He does have a history of borderline diabetes. At present, he reports that the pain is in his left anterior thigh and left lower back. He describes it as a constant, nagging pain that he rates 7/10 at present. Movements exacerbate the pain and because a sharp stabbing pain in his thigh. No radiation down the leg or up the back. He did not take any pain medicine before coming in. No prior history of injuries to the left leg or hip. No hardware in his left leg or hip. No recent falls or injuries. Patient is a current everyday tobacco cigarette smoker; 1 PPD. He denies any recent alcohol use. Last BM was this morning. He denies any numbness or tingling down the le g. ED course: ROS: Patient endorses left lower back/hip/thigh pain Patient denies fever, chills, night sweats, dizziness, lightheadedness, headache, chest pain, chest palpitations, pleuritic CP, SOB, cough, abdominal pain, N/V/D, changes in urinary/bowel habits, or numbness or tingling down the left leg. Discharge Exam Constitutional WD/WN, vitals as above Eyes PERRL, conjunctivae normal, anicteric sclerae Respiratory breathing unlabored Cardiovascular well perfused Gastrointestinal (Abdomen) negative tenderness to palpation, + BS Psychiatric A+Ox3, euthymic affect Discharge Plan Discharge Items Patient Disposition: Transfer Inpatient Rehab Fac Reason For Visit: LEFT FEMUR FX Discharge Diagnosis: left femur fracture Activity: As commented below Activity Comment: per rehab facility Non-emergency contact: Surgeon Call non-emergency contact if: your symptoms worsen, your pain is not controlled, your temperature is above 101, your wound has increased redness and your wound has increased drainage Follow-up/Referrals: Dru Martin PA-C [Physician [employer] Hammer Machine Operator] - 07/09/24 8:30 am Trey,Trey [Non-Staff] - Diet: Carb Consistent or DM2 Addtl Attending Provider Instructions: Mr. Lauren, You were recently hospitalized after you broke your left femur. You had surgery and have been recovering well with physical/occupational therapy and pain control. Please see recommendations below regarding your discharge. 1. Please continue on 1000mg Tylenol every 8 hours. 2. Please take Oxycodone 5mg every 6 hours as needed for breakthrough pain. 3. Please continue on your bowel regimen listed below until you move your bowels adequately on your own or you stop using oxycodone Miralax twice daily Senokot daily Colace twice daily suppository as needed 4. The remainder of your medications may be resumed as previously prescribed. 5. Please follow up with orthopedic surgery outpatient. Their instructions are listed for you below. 6. Please follow up with your PCP within 1-2 weeks of discharge. At this visit, please discuss your blood glucose levels as your medications may need to be adjusted outpatient. If you develop any fever, chills, or redness/drainage around incision site, please return to the ER for further care. Sincerely, Siria Muniztl Kiln Worker Provider Instructions: Anterior total hip precautions Weightbearing as tolerated with walker assistance Abduction pillow use when in bed. Keep Silverlon dressing in place until follow up appointment. Okay to shower with Silverlon dressing in place. Aspirin 81mg twice daily for DVT prophylaxis for 4-6 weeks after surgery. Branden stockings on both legs; on during the day; off at night. Elevate heels off of bed at all times. Pressure sore precautions Pain controlled p.o. medication Ice with easy wrap Elevate lower extremities as needed for edema With questions contact our clinic at [phone] Pending Studies at Discharge: No Stand-Alone Forms: My [facility] Skilled Items Patient informed of condition?: Yes DNR: Yes Discharge Level of Care: Acute rehab Communicable Disease: No Discharge Prognosis: Improving Lines: None Urinary Catheter: No Medications and DC Order Prescriptions: New docusate sodium 100 mg Capsule 100 mg PO BID Qty: 60 0RF sennosides [Senokot] 8.6 mg Tablet 17.2 mg PO HS Qty: 30 0RF polyethylene glycol 3350 [Miralax] 17 gram Powder In Packet 17 g PO BID Qty: 30 0RF bisacodyl 10 mg Suppository 10 mg IA DAILY PRN (Reason: constipation) Qty: 12 0RF oxycodone 5 mg tablet 5 mg PO Q6H PRN (Reason: pain) Qty: 14 0RF Continued aspirin 81 mg Tablet,Delayed Release (Dr/Ec) 81 mg PO QAM Qty: 0 atorvastatin 40 mg tablet 40 mg PO PM lisinopril 20 mg tablet 20 mg PO BID pioglitazone 45 mg tablet 45 mg PO QAM amlodipine 5 mg tablet 5 mg PO QAM pantoprazole 20 mg tablet,delayed release (DR/EC) 20 mg PO UD Rx Instructions: Sunday, sunday, sunday gabapentin 300 mg capsule 300 mg PO BID metoprolol succinate 25 mg tablet extended release 24 hr 25 mg PO PM fenofibrate nanocrystallized 48 mg tablet 48 mg PO PM Janumet XR 100-1,000 mg tablet, ER multiphase 24 hr 1 tab PO PM cholecalciferol (vitamin D3) [Vitamin D3] 25 mcg (1,000 unit) Tablet 25 mcg PO QAM Jardiance 10 mg Tablet 10 mg PO QAM Discharge Orders: Discharge Order (Routine); Ordered 07/03/24 Ordered By: Siria Keller/Other Patient Handouts: Managing Type 2 Diabetes Admission Data Admit Date/Time: 06/26/24 14:02 Attending Provider: Marcos Lr Admit Provider: Sigifredo Kowalski Primary Care Provider: Efren Card Other Providers: Sigifredo Kowalski; Sigifredo Goldberg; [facility]; [facility]; [facility]; [facility] Stay Data Consultations 06/26/24 10:51 ED Decision to Admit Stat 06/26/24 11:29 Consult Orthopedic Surgery Routine Procedures Performed Operation Date: 06/26/24 07:00 Actual Procedures p Left Total Hip Arthroplasty(Left) - Sigifredo Goldberg MD Pending Results Patient Have Any Pending Studies at Discharge: No Discharge Instructions Given to Patient (Per Discharging Provider) Mr. Lauren, You were recently hospitalized after you broke your left femur. You had surgery and have been recovering well with physical/occupational therapy and pain control. Please see recommendations below regarding your discharge. 1. Please continue on 1000mg Tylenol every 8 hours. 2. Please take Oxycodone 5mg every 6 hours as needed for breakthrough pain. 3. Please continue on your bowel regimen listed below until you move your bowels adequately on your own or you stop using oxycodone Miralax twice daily Senokot daily Colace twice daily suppository as needed 4. The remainder of your medications may be resumed as previously prescribed. 5. Please follow up with orthopedic surgery outpatient. Their instructions are listed for you below. 6. Please follow up with your PCP within 1-2 weeks of discharge. At this visit, please discuss your blood glucose levels as your medications may need to be adjusted outpatient. If you develop any fever, chills, or redness/drainage around incision site, please return to the ER for further care. Sincerely, Siria Johns PA-C Total Time Total Time Spent Total Time Spent (In Minutes): 40 Total Time Includes: Examination of the Patient, Discharge Planning and Medication Reconciliation Coding Level of Care Code 93614 INP/OBS DISCH >30 MIN Diagnoses Nondisplaced fracture of left femur S72.92XA Acute kidney injury N17.9 Diabetes E11.9 Hypertension I10 Hypertension type: unspecified
== END 2024-07-03 15:07 | DRG 522 ==
LOC: ED 09:33 → OR 14:01 → 3E 14:02 → SUATTDRO 14:02

== ENCOUNTER 2024-08-15 14:52 | Inpatient (IN) ==
--- NOTE | 2024-08-15 15:27 | XRay Report ---
XR chest 1V portable CLINICAL HISTORY: Chest pain, nonspecific TECHNIQUE: Single frontal radiograph of the chest was obtained. Comparison: Comparison is made to chest radiograph 06/26/2024 FINDINGS: No lines and tubes are seen. Cardiomegaly is noted. Right greater than left lower lung airspace opaci ties are seen. Trace right pleural effusion. IMPRESSION: 1. Right lower and left lower lung airspace opacity. This may represent atelectasis, pneumonia, and/ or aspiration. 2. Trace right pleural effusion. 3. Stable cardiac megaly. ACT 112: Negative or not required by law. Electronically signed by: Mj Santo M.D. 08/15/2024 3:25 PM
[2024-08-15 15:29] LABS: Basophils # (auto) 0.04 K/uL (0.00-0.20); Basophils % (auto) 0.5 %; Eosinophils # (auto) 0.19 K/uL (0.00-0.50); Eosinophils % (auto) 2.2 %; Hematocrit (blood only) 37.4 % (42.0-52.0); Hemoglobin 12.2 g/dl (14.0-18.0); Immature Granulocytes # (auto) 0.03 K/uL (0.01-0.20); Immature Granulocytes % (auto) 0.4 %; Lymphocytes % (auto) 25.9 %; Mean Corpuscular Hemoglobin 31.4 pg (25.0-34.0); Mean Corpuscular Hgb Conc 32.6 g/dL (32.0-36.0); Mean Corpuscular Volume 96.4 fL (80.0-100.0); Mean Platelet Volume 10.3 fL (9.4-12.4); Monocytes # (auto) 0.48 K/uL (0.11-0.59); Monocytes % (auto) 5.7 %; Neutrophils # (auto) 5.54 K/uL (1.40-6.50); Neutrophils % (auto) 65.3 %; Platelet Count 374 K/uL (130-400); RDW Coefficient of Variation 13.7 % (11.5-14.5); RDW Standard Deviation 49.1 fL (36.4-46.3); Red Blood Count 3.88 M/uL (4.70-6.10); White Blood Count 8.48 K/ul (4.8-10.8)
--- NOTE | 2024-08-15 15:33 | Emergency Department Note ---
Impression & Plan Acute respiratory failure with hypoxia, Acute heart failure, Hypomagnesemia, Hypokalemia, Elevated troponin ED Provider Note NAME: KEVIN LOPEZ AGE: 79 SEX: M : 1945 ARRIVES VIA: Ambulance INFORMANT: Patient ED PROVIDER(S): Jeronimo De Leon MD CHIEF COMPLAINT: Shortness of breath, chest pain PLAN: Disposition: Admit MEDICAL DECISION MAKING: The patient is a pleasant 79-year-old gentleman with a past medical history of acid reflux, hypertension, hyperlipidemia, type 2 diabetes, polyneuropathy, history of CVA who presents emerged department via EMS and accompanied by his daughter for evaluation of worsening shortness of breath and lower extremity edema which has been progressing since his discharge from this facility when he was admitted for hip fracture discharged to rehab. Patient reports that he has been having outpatient follow-up for his symptoms and recent had a heart monitor through his [facility] provider that demonstrated episodes of a heart block. The patient reports having increased chest pain today and shortness of breath. He reports that he has had a 10-50 pound weight gain over the past couple of months. Patient is not on oxygen at home. Patient does smoke daily but denies history of COPD. On evaluation the patient is mildly dyspneic appearing but no distress, afebrile with blood pressure in the 170s/100s with O2 saturation 87% on room air placed on 4 L nasal cannula improving to the mid 90s. He appears hypervolemic with 2+ bilateral lower extremity pitting edema. Abdomen is mildly distended but soft and nontender. EKG without overt acute ischemia. Chest x-ray with bilateral lower lung field airspace opacities better characterized on CT imaging. WBC within normal limits without neutrophilia or left shift. H/H similar to prior. Platelets within normal limits. Chemistry without metabolic acidosis. LFTs unremarkable. Magnesium is low at 1.2 with IV repletion initiated and potassium 3.4 with oral repletion provided. High-sensitivity troponin is 155, nonspecific with BNP 1200 consistent with the patient's hypervolemia and suspicious for new onset systolic heart failure. Lipase is not elevated. Respiratory BioFire was negative. Procalcitonin was not elevated. CT of the chest was negative for PE. Probable CHF is described. Bilateral pleural effusions present and generalized septal thickening is noted. Dependent consolidation airway thickening of the lower lobes is suggestive of mucoid impaction. CT of the abdomen pelvis demonstrates chronic ileus. Cholelithiasis noted where gallbladder wall thickening is not excluded. However patient denies any tenderness to palpation and LFTs are unremarkable and so cholecystitis is not likely. Urinary bladder appears mildly thickened and inflamed, nonspecific. IV Lasix was ordered. Case was d/w KARINE Eastman hospitalist who will evaluate the patient for admission. Further management per admitting team. Triage Nursing notes reviewed and agree them. Prior/external medical records reviewed Vital Signs: reviewed Differential diagnosis: Reactive airway disease, pneumonia, pneumothorax, COPD, CHF, infections, cardiac ischemia, pulmonary embolism, musculoskeletal, gastrointestinal, as well as other pathologies. ER treatment provided: See below. Diagnostics interpreted by me: ECG: Sinus rhythm with premature supraventricular complexes, 80 bpm, no overt ST elevation or depression, QTc 470, QRS 90. Cardiac Monitoring: An order for continuous cardiac monitoring was placed and demonstrated Sinus rhythm with premature supraventricular complexes, 80 bpm Laboratory studies: See below Imaging studies: See below Consultation(s): Case was d/w KARINE Eastman hospitalist who will evaluate the patient for admission. HPI: The patient is a pleasant 79-year-old gentleman with a past medical history of acid reflux, hypertension, hyperlipidemia, type 2 diabetes, polyneuropathy, history of CVA who presents emerged department via EMS and accompanied by his daughter for evaluation of worsening shortness of breath and lower extremity edema which has been progressing since his discharge from this facility when he was admitted for hip fracture discharged to rehab. Patient reports that he has been having outpatient follow-up for his symptoms and recent had a heart monitor through his [facility] provider that demonstrated episodes of a heart block. The patient reports having increased chest pain today and shortness of breath. He reports that he has had a 10-50 pound weight gain over the past couple of months. Patient is not on oxygen at home. Patient does smoke daily but denies history of COPD. ROS: See above HPI for pertinent positives & negatives. A total of 10 systems reviewed and were otherwise negative. VITALS:See Below PHYSICAL EXAMINATION: GENERAL: Awake, alert, Mildly dyspneic-appearing, in no distress HENT: Normocephalic, atraumatic. Oropharynx unremarkable. EYES: Normal conjunctiva. Sclera non-icteric. NECK: Supple. No nuchal rigidity. FROM. Mild JVD. RESPIRATORY: Diminished breath sounds of bilateral lower lung motley with bilateral wheezes noted. CARDIAC: Regular rate, normal rhythm. Extremities warm and well perfused. Pulses equal. ABDOMEN: Soft, non-distended. No tenderness to palpation. No rebound or guarding. No masses. MUSCULOSKELETAL: Chest examination reveals no tenderness. The back is symmetrical on inspection without obvious abnormality. There is no CVA tenderness to palpation. No joint edema. LOWER EXTREMITIES: Calves are equal size bilaterally and non-tender. 2+ BLE pitting edema. No discoloration. NEURO: Normal sensorium. No sensory or motor deficits noted. SKIN: No rash or jaundice noted. Jeronimo De Leon MD Past Med/Surg History Problem List (Updated 08/16/24 @ 05:10 by Jeronimo De Leon MD) Elevated troponin (Acute) Hypokalemia (Acute) Hypomagnesemia (Acute) Acute respiratory failure with hypoxia (Acute) Ileus Elevated troponin I level Nephrotic range proteinuria Acute heart failure (Acute) Abnormal Holter monitor finding Abdominal distention Nausea Altered bowel habits Polyneuropathy Osteoarthritis GERD (gastroesophageal reflux disease) Hyperlipemia Pain of left heel Acute kidney injury S/P total left hip arthroplasty Displaced fracture of left femoral neck Fall (Acute) Diabetes Tobacco smoker, 1 pack of cigarettes or less per day History of CVA (cerebrovascular accident) (Acute) Hypertension (Acute) Nondisplaced fracture of left femur (Acute) Medical History Adverse effect of anesthesia Surgical History History of left hip replacement (06/26/24) Hx of colonoscopy 11-25-2020 Hx of cataract surgery Family History Brother Cancer Mother Diabetes Hypertension Father Heart disease Hypertension Other Seen by cardiac surgery service Social History Smoking Status: Current every day smoker Tobacco Type: Cigarettes packs per day: 1; Cigarettes Per Day: 10; Second Hand Exposure: No; Do You Dip or Chew Tobacco: No; Tobacco Cessation Education Requested by Patient: No Hx Alcohol Use: Yes Alcohol type: beer Alcohol Intake Frequency Comment: 6 pack/year Hx Substance Use: No Preferred Language: Malay Communication Ability: Effective Computer Support Technician Required: No Beliefs That Will Affect Care: None marital status: Current Living Situation: Spouse current occupation: Retired How many Children do You have: 2 Other Information That Helps Us Care for You: No Feels Safe at Home: Yes Safety Concerns: Feels Safe At This Time during the past year weight has: increased > 10 lbs Assistive Devices: Cane and Denture - Upper Allergies Allergies Allergy/AdvReac Type Severity Reaction Status Date / Time No Known Allergies Allergy Unknown Verified 08/14/24 12:59 Home Meds Home Medications Medication Instructions Recorded Confirmed aspirin 81 mg tablet,delayed 81 mg PO UD ##0 04/12/07 08/15/24 release amlodipine 5 mg tablet 5 mg PO QAM 06/26/24 08/15/24 atorvastatin 40 mg tablet 40 mg PO PM 06/26/24 08/15/24 cholecalciferol (vitamin D3) 25 25 mcg PO QAM 06/26/24 08/15/24 mcg (1,000 unit) tablet (Vitamin D3) fenofibrate nanocrystallized 48 mg 48 mg PO PM 06/26/24 08/15/24 tablet gabapentin 300 mg capsule 300 mg PO BID 06/26/24 08/15/24 lisinopril 20 mg tablet 20 mg PO BID 06/26/24 08/15/24 metoprolol succinate 25 mg 25 mg PO PM 06/26/24 08/15/24 tablet,extended release 24 hr pantoprazole 20 mg tablet,delayed 20 mg PO UD 06/26/24 08/15/24 release pioglitazone 45 mg tablet 45 mg PO QAM 06/26/24 08/15/24 sitagliptin phos 100 mg-metformin 1 tab PO PM 06/26/24 08/15/24 ER 1,000 mg tablet,extend rel 24h mp (Janumet XR) potassium chloride 10 mEq 10 meq PO HS 08/11/24 08/15/24 tablet,extended release empagliflozin 10 mg tablet 10 mg PO DAILY 08/14/24 08/15/24 (Jardiance) Results & Data (ED) Vital Signs Vital Signs - 24 hr 08/15/24 14:59 08/15/24 14:59 08/15/24 14:59 Temperature 36.6 C Temperature Source Oral Pulse Rate 80 Pulse Rate [Apical] Respiratory Rate 20 Respiratory Effort / Characteristics Spontaneous Respiratory Depth Normal Respiratory Pattern Regular Blood Pressure 176/102 H Blood Pressure [Right Arm] Blood Pressure Mean 126 Blood Pressure Mean [Right Arm] Pulse Oximetry 87 L 87 L Oxygen Delivery Method Room Air Nasal Cannula Oxygen Flow Rate 0 Sepsis Recent Fever Within 48 Hours No Sepsis New/Unexplained Change in Mental Status No Sepsis Action Taken by Nursing No Action Required Oxygen Flow Rate - Titration 4 Pulse Oximetry Post Tiitration 96 08/15/24 15:17 08/15/24 16:07 08/15/24 16:15 Temperature Temperature Source Pulse Rate 80 Pulse Rate [Apical] 76 Respiratory Rate 18 Respiratory Effort / Characteristics Respiratory Depth Respiratory Pattern Blood Pressure Blood Pressure [Right Arm] 160/85 H Blood Pressure Mean Blood Pressure Mean [Right Arm] 110 Pulse Oximetry 96 96 Oxygen Delivery Method Nasal Cannula Nasal Cannula Oxygen Flow Rate 4 4 Sepsis Recent Fever Within 48 Hours Sepsis New/Unexplained Change in Mental Status Sepsis Action Taken by Nursing Oxygen Flow Rate - Titration Pulse Oximetry Post Tiitration Laboratory Data Attestation: I reviewed the patient's lab results. 08/15/24 15:00 08/15/24 15:00 Lab Results 08/15/24 Range/Units 15:00 WBC 8.48 (4.8-10.8) K/ul RBC 3.88 L (4.70-6.10) M/uL Hgb 12.2 L (14.0-18.0) g/dl Hct 37.4 L (42.0-52.0) % MCV 96.4 (80.0-100.0) fL MCH 31.4 (25.0-34.0) pg MCHC 32.6 (32.0-36.0) g/dL RDW Std Deviation 49.1 H (36.4-46.3) fL RDW Coeff of Dhaval 13.7 (11.5-14.5) % Plt Count 374 (130-400) K/uL MPV 10.3 (9.4-12.4) fL Immature Gran % (Auto) 0.4 % Neut % (Auto) 65.3 % Lymph % (Auto) 25.9 % [place] % (Auto) 5.7 % Eos % (Auto) 2.2 % Baso % (Auto) 0.5 % Neut # (Auto) 5.54 (1.40-6.50) K/uL Lymph # (Auto) 2.20 (1.20-3.40) K/uL [place] # (Auto) 0.48 (0.11-0.59) K/uL Eos # (Auto) 0.19 (0.00-0.50) K/uL Baso # (Auto) 0.04 (0.00-0.20) K/uL Immature Gran # (Auto) 0.03 (0.01-0.20) K/uL PT 11.2 (9.0-12.0) Seconds INR 1.0 (0.9-1.1) Sodium 144 (136-145) mmol/L Potassium 3.4 L (3.5-5.1) mmol/L Chloride 107 (98-107) mmol/L Carbon Dioxide 29 (21-32) mmol/L Anion Gap 8 (3-11) BUN 11 (6-23) mg/dl Creatinine 0.88 (0.6-1.4) mg/dl Est Cr Clr Drug Dosing 81.4 ml/min eGFR 86.93 BUN/Creatinine Ratio 12.5 (10-20) Glucose 138 H (70-99(Fasting)) mg/dl Calcium 9.0 (8.6-10.3) mg/dl Magnesium 1.2 L (1.7-2.4) mg/dl Total Bilirubin 0.5 (0.2-1.0) mg/dl AST 16 (13-39) U/L ALT 13 (7-52) U/L Alkaline Phosphatase 95 (34-104) U/L Troponin I High Sens 155.0 H* (0-20) pg/ml B-Natriuretic Peptide 1278 H (0-100) pg/ml Total Protein 6.6 (6.0-8.3) gm/dl Albumin 3.7 (3.4-5.0) gm/dl Globulin 2.9 (2.5-4.0) gm/dl Albumin/Globulin Ratio 1.3 (0.9-2) Lipase 17 (11-82) U/L Procalcitonin 0.02 (0-0.5) ng/ml TSH 1.227 (0.300-4.500) uIu/ml Administered Medications Atorvastatin Calcium (Atorvastatin 40 Mg Tab) 40 mg PO PM MARY Stop: 09/14/24 20:59 Last Admin: 08/15/24 20:08 Dose: 40 mg Documented By: CR Enoxaparin Sodium (Enoxaparin Inj 40 Mg/0.4 Ml Syr) 40 mg SQ QPM MARY Stop: 09/14/24 21:39 Last Admin: 08/15/24 22:24 Dose: 40 mg Documented By: CR Gabapentin (Gabapentin 300 Mg Cap) 300 mg PO BID MARY Stop: 09/14/24 20:59 Last Admin: 08/15/24 20:08 Dose: 300 mg Documented By: CR Lisinopril (Lisinopril 20 Mg Tab) 20 mg PO BID MARY Stop: 09/14/24 21:44 Last Admin: 08/15/24 22:23 Dose: 20 mg Documented By: CR Metoprolol Succinate (Metoprolol Succ 25mg Ext Rel Tab) 25 mg PO PM MARY Stop: 09/14/24 20:59 Last Admin: 08/15/24 20:08 Dose: 25 mg Documented By: CR Pantoprazole Sodium (Pantoprazole 40 Mg Tab) 40 mg PO QAM MARY Stop: 09/14/24 19:44 Last Admin: 08/15/24 20:08 Dose: 40 mg Documented By: CR Discontinued Medications Albuterol (Albut/Ipratrop 3mg/0.5mg Neb 3 Ml Vial) 3 ml NEB NOW STA; Protocol Stop: 08/15/24 15:33 Last Admin: 08/15/24 16:13 Dose: 3 ml Documented By: LANDRY Aspirin (Aspirin 81 Mg Chew) 243 mg PO NOW STA Stop: 08/15/24 17:29 Last Admin: 08/15/24 17:52 Dose: 243 mg Documented By: NRAna Furosemide (Furosemide Inj 20 Mg/2 Ml Vial) 20 mg IV ONE ONE Stop: 08/15/24 16:49 Last Admin: 08/15/24 17:53 Dose: 20 mg Documented By: LANDRY Furosemide (Furosemide Inj 20 Mg/2 Ml Vial) 20 mg IV ONE STA Stop: 08/15/24 20:57 Last Admin: 08/15/24 21:23 Dose: 20 mg Documented By: CR Magnesium Sulfate/Dextrose (Magnesium Sulfate / D5w) 1 gm in 100 mls @ 100 mls/hr IV Q1H MARY Stop: 08/15/24 18:50 Last Infusion: 08/15/24 20:43 Dose: Infused Documented By: Admin: 08/15/24 19:36 Dose: 100 mls/hr Documented By: Infusion: 08/15/24 19:25 Dose: Infused Documented By: Admin: 08/15/24 18:25 Dose: 100 mls/hr Documented By: JEFF Magnesium Sulfate/Dextrose (Magnesium Sulfate / D5w) 1 gm in 100 mls @ 50 mls/hr IV Q2H MARY Stop: 08/16/24 01:14 Last Infusion: 08/16/24 01:24 Dose: Infused Documented By: Admin: 08/15/24 23:33 Dose: 50 mls/hr Documented By: Infusion: 08/15/24 23:33 Dose: Infused Documented By: Infusion: 08/15/24 22:15 Dose: 50 mls/hr Documented By: Infusion: 08/15/24 21:45 Dose: 0 mls/hr Documented By: Admin: 08/15/24 21:23 Dose: 50 mls/hr Documented By: FRANK Ioversol (Optiray 320 125ml) 119 ml IV ONCE ONE Stop: 08/15/24 15:57 Last Admin: 08/15/24 15:56 Dose: 119 ml Documented By: JACKSON Potassium Chloride (Potassium Chloride Crtab 20 Meq Tabcr) 40 meq PO NOW STA Stop: 08/15/24 16:52 Last Admin: 08/15/24 17:51 Dose: 40 meq Documented By: NRB Imaging Data Radiologist's Impression: Chest X-Ray 08/15/24 14:57 XR chest 1V portable CLINICAL HISTORY: Chest pain, nonspecific TECHNIQUE: Single frontal radiograph of the chest was obtained. Comparison: Comparison is made to chest radiograph 06/26/2024 FINDINGS: No lines and tubes are seen. Cardiomegaly is noted. Right greater than left lower lung airspace opacities are seen. Trace right pleural effusion. IMPRESSION: 1. Right lower and left lower lung airspace opacity. This may represent atelectasis, pneumonia, and/or aspiration. 2. Trace right pleural effusion. 3. Stable cardiac megaly. ACT 112: Negative or not required by law. Electronically signed by: Mj Santo M.D. 08/15/2024 3:25 PM Abdomen/Pelvis CT 08/15/24 15:32 EXAM: CT Abdomen and Pelvis With Intravenous Contrast INDICATION: Abdominal distention. TECHNIQUE: Axial computed tomography images of the abdomen and pelvis with intravenous contrast. Sagittal and coronal reformatted images were created and reviewed. This CT exam was performed using one or more of the following dose reduction techniques: automated exposure control, adjustment of the mA and/or kV according to patient size, and/or use of iterative reconstruction technique. CONTRAST: 119ml of Optiray 320 was administered intravenously. COMPARISON: No relevant prior studies available. FINDINGS: Limitations: None. Lung bases: There is airway thickening and dependent consolidation in both lower lobes. Pleural space: Small bilateral layering pleural effusions present right greater than left. Layering right effusion is 4.9 cm thickness and left 2.6 cm. No basilar pneumothorax noted. Heart: No abnormality noted. Mediastinum: No abnormality noted. ABDOMEN: Liver: No abnormality noted. Gallbladder and bile ducts: Tiny gallstones noted. Gallbladder wall thickening cannot be excluded. No ductal dilatation. Pancreas: Homogeneous enhancement. No mass, inflammation or ductal dilation. Spleen: No significant abnormality noted. Adrenals: No significant abnormality noted. Kidneys and ureters: Left nephrectomy. No mass in the nephrectomy bed. Mild cortical scarring right kidney. No stone or hydronephrosis. Simple right renal cysts. No follow-up of these simple cysts is necessary. Stomach and bowel: Prominently aerated redundant colon with segments of moderate formed stool. No obstruction. PELVIS: Appendix: No findings to suggest acute appendicitis. Bladder: Urinary bladder is incompletely distended and appears mildly inflamed. No stones or gas. Urinary bladder appears mildly thickened and inflamed. No gas or stone. Reproductive: No abnormalities noted. ABDOMEN and PELVIS: Intraperitoneal space: Small amounts of ascitic fluid noted over the hepatic dome and in the left lower quadrant. No organized or loculated collection. No free air. Bones/joints: Degenerative changes noted throughout the spine. No acute osseous abnormality seen. Soft tissues: Body wall edema noted. Right inguinal hernia noted containing fat. Vasculature: There is atherosclerosis of the aorta. The right common iliac artery is small possibly related to mild stenosis at the origin. No aneurysm or dissection. Lymph nodes: In the mesenteric fat to the left of the rectosigmoid colon is a soft tissue nodule likely a lymph node enlarged to 2.3 cm short axis dimension series 6 image 271. There are a few normal size scattered retroperitoneal nodes. IMPRESSION: 1. Colonic ileus. No obstruction or segmental thickening. 2. Cholelithiasis with possible acute cholecystitis. Sonography would better assess. 3. Cystitis. 4. Small bilateral pleural effusions and bronchitis and compressive atelectasis in the lower lobes. ACT 112: Negative or not required by law. Electronically signed by Alina Burciaga 08-15-2024 4:25 PM Chest CTA 08/15/24 15:32 EXAM: CT Angiography Chest With Intravenous Contrast INDICATION: Hypoxia. Shortness of breath. TECHNIQUE: Axial computed tomographic angiography images of the chest with intravenous contrast. Sagittal and coronal reformatted images were created and reviewed. This CT exam was performed using one or more of the following dose reduction techniques: automated exposure control, adjustment of the mA and/or kV according to patient size, and/or use of iterative reconstruction technique. MIP reconstructed images were created and reviewed. CONTRAST: 119 ml of Optiray 320 was administered intravenously. COMPARISON: No relevant prior studies available. FINDINGS: Pulmonary arteries: No abnormality noted. No pulmonary embolism. Aorta: No aneurysm or dissection. Lungs and pleural spaces: Small layering bilateral pleural effusions present. No pneumothorax. Generalized septal thickening noted. There is dependent consolidation and airway thickening in the lower lobes with some segments of small airway mucoid impaction. No bronchiectasis. Heart: The heart is mildly enlarged. No pericardial effusion. No definite evidence of right heart strain. Bones/joints: Degenerative changes in the spine. No lytic or blastic lesions. Soft tissues: No abnormality noted. Lymph nodes: Lateral aortic, aorta pulmonic and precarinal nodes present measuring up to 11 mm short axis dimension. No enlarged hilar nodes present. IMPRESSION: 1. No pulmonary embolus identified. 2. Probable CHF. 3. Dependent infiltrates in both lung bases with bronchitis and segments of small airway thickening. Pneumonia not excluded. 4. Mediastinal adenopathy likely reactive. ACT 112: Negative or not required by law. Electronically signed by Alina Burciaga 08-15-2024 4:29 PM Discharge Plan Visit Data Chief Complaint: Shortness of Breath/Dyspnea Stated Complaint: CHEST PAIN ED Provider: Jeronimo De Leon Discharge Problem: Acute respiratory failure with hypoxia, Acute heart failure, Hypomagnesemia, Hypokalemia, Elevated troponin Patient Disposition: Admitted As Inpatient Discharge Instructions Interventions: ED Discharge Assessment Last Done: 08/15/24 17:41 Discharge Problem: Acute heart failure Qualifiers: Heart failure type: unspecified Qualified Code(s): I50.9 - Heart failure, unspecified
[2024-08-15 15:45] LABS: Albumin Globulin Ratio 1.3 (0.9-2); Albumin Level 3.7 gm/dl (3.4-5.0); BUN Creatinine Ratio 12.5 (10-20); Bilirubin,Total 0.5 mg/dl (0.2-1.0); Creatinine Clr Calc Pharmacy 81.4 ml/min; Globulin 2.9 gm/dl (2.5-4.0); Magnesium 1.2 mg/dl (1.7-2.4); Potassium 3.4 mmol/L (3.5-5.1); Total Protein 6.6 gm/dl (6.0-8.3)
[2024-08-15 15:53] LABS: Prothrombin Time 11.2 Seconds (9.0-12.0)
[2024-08-15] MEDS: OPTIRAY 320 125ml IV ONE (15:56)
[2024-08-15] MEDS: ALBUT/IPRATROP 3MG/0.5MG NEB 3 ML VIAL NEB STA (16:13)
--- NOTE | 2024-08-15 16:25 | CT Scan Report ---
EXAM: CT Abdomen and Pelvis With Intravenous Contrast INDICATION: Abdominal distention. TECHNIQUE: Axial computed tomography images of the abdomen and pelvis with intravenous contrast. Sagittal and coronal reformatted images were created and reviewed. This CT exam was performed using one or more of the following dose reduction techniques: automated exposure control, adjustment of the mA and/or kV according to patient size, and/or use of iterative reconstruction technique. CONTRAST: 119ml of Optiray 320 was administered intravenously. COMPARISON: No relevant prior studies available. FINDINGS: Limitations: None. Lung bases: There is airway thickening and dependent consolidation in both lower lobes. Pleural space: Small bilateral layering pleural effusions present right greater than left. Layering right effusion is 4.9 cm thickness and left 2.6 cm. No basilar pneumothorax noted. Heart: No abnormality noted. Mediastinum: No abnormality noted. ABDOMEN: Liver: No abnormality noted. Gallbladder and bile ducts: Tiny gallstones noted. Gallbladder wall thickening cannot be excluded. No ductal dilatation. Pancreas: Homogeneous enhancement. No mass, inflammation or ductal dilation. Spleen: No significant abnormality noted. Adrenals: No significant abnormality noted. Kidneys and ureters: Left nephrectomy. No mass in the nephrectomy bed. Mild cortical scarring right kidney. No stone or hydronephrosis. Simple right renal cysts. No follow-up of these simple cysts is necessary. Stomach and bowel: Prominently aerated redundant colon with segments of moderate formed stool. No obstruction. PELVIS: Appendix: No findings to suggest acute appendicitis. Bladder: Urinary bladder is incompletely distended and appears mildly inflamed. No stones or gas. Urinary bladder appears mildly thickened and inflamed. No gas or stone. Reproductive: No abnormalities noted. ABDOMEN and PELVIS: Intraperitoneal space: Small amounts of ascitic fluid noted over the hepatic dome and in the left lower quadrant. No organized or loculated collection. No free air. Bones/joints: Degenerative changes noted throughout the spine. No acute osseous abnormality seen. Soft tissues: Body wall edema noted. Right inguinal hernia noted containing fat. Vasculature: There is atherosclerosis of the aorta. The right common iliac artery is small possibly related to mild stenosis at the origin. No aneurysm or dissection. Lymph nodes: In the mesenteric fat to the left of the rectosigmoid colon is a soft tissue nodule likely a lymph node enlarged to 2.3 cm short axis dimension series 6 image 271. There are a few normal size scattered retroperitoneal nodes. IMPRESSION: 1. Colonic ileus. No obstruction or segmental thickening. 2. Cholelithiasis with possible acute cholecystitis. Sonography would better assess. 3. Cystitis. 4. Small bilateral pleural effusions and bronchitis and compressive atelectasis in the lower lobes. ACT 112: Negative or not required by law. Electronically signed by Alina Burciaga 08-15-2024 4:25 PM
--- NOTE | 2024-08-15 16:30 | CT Scan Report ---
EXAM: CT Angiography Chest With Intravenous Contrast INDICATION: Hypoxia. Shortness of breath. TECHNIQUE: Axial computed tomographic angiography images of the chest with intravenous contrast. Sagittal and coronal reformatted images were created and reviewed. This CT exam was performed using one or more of the following dose reduction techniques: automated exposure control, adjustment of the mA and/or kV according to patient size, and/or use of iterative reconstruction technique. MIP reconstructed images were created and reviewed. CONTRAST: 119 ml of Optiray 320 was administered intravenously. COMPARISON: No relevant prior studies available. FINDINGS: Pulmonary arteries: No abnormality noted. No pulmonary embolism. Aorta: No aneurysm or dissection. Lungs and pleural spaces: Small layering bilateral pleural effusions present. No pneumothorax. Generalized septal thickening noted. There is dependent consolidation and airway thickening in the lower lobes with some segments of small airway mucoid impaction. No bronchiectasis. Heart: The heart is mildly enlarged. No pericardial effusion. No definite evidence of right heart strain. Bones/joints: Degenerative changes in the spine. No lytic or blastic lesions. Soft tissues: No abnormality noted. Lymph nodes: Lateral aortic, aorta pulmonic and precarinal nodes present measuring up to 11 mm short axis dimension. No enlarged hilar nodes present. IMPRESSION: 1. No pulmonary embolus identified. 2. Probable CHF. 3. Dependent infiltrates in both lung bases with bronchitis and segments of small airway thickening. Pneumonia not excluded. 4. Mediastinal adenopathy likely reactive. ACT 112: Negative or not required by law. Electronically signed by Alina Burciaga 08-15-2024 4:29 PM
[2024-08-15 16:40] LABS: Adenovirus PCR Not Detected (NotDetected); Bordetella parapertussis PCR Not Detected (NotDetected); Bordetella pertussis PCR Not Detected (NotDetected); Chlamydia pneumoniae PCR Not Detected (NotDetected); Coronavirus 229E PCR Not Detected (NotDetected); Coronavirus CoV-2 (COVID19)PCR Not Detected (NotDetected); Coronavirus HKU1 PCR Not Detected (NotDetected); Coronavirus NL63 PCR Not Detected (NotDetected); Coronavirus OC43PCR Not Detected (NotDetected); Human Metapneumovirus PCR Not Detected (NotDetected); Influenza A PCR Not Detected (NotDetected); Influenza B PCR Not Detected (NotDetected); Mycoplasma pneumoniae PCR Not Detected (NotDetected); Parainfluenza Virus 1 PCR Not Detected (NotDetected); Parainfluenza Virus 2 PCR Not Detected (NotDetected); Parainfluenza Virus 3 PCR Not Detected (NotDetected); Parainfluenza Virus 4 PCR Not Detected (NotDetected); Respiratory Syncytial VirusPCR Not Detected (NotDetected); Rhinovirus/Enterovirus PCR Not Detected (NotDetected)
--- NOTE | 2024-08-15 17:08 | History & Physical Report ---
Date of Service August 15, 2024 Assessment & Plan (1) Acute respiratory failure with hypoxia: Plan: Suspect secondary to pulmonary edema, CXR and CT are somewhat concerning for pneumonia however WBC, procalcitonin and history more consistent with pulmonary edema alone Aim O2 sats > 94 in setting of NSTEMI type 1 vs 2 (2) Acute heart failure: Plan: Stop pioglitazone indefinitely Lasix 20mg IV given in ER, give additional Lasix 20mg IV tonight Continue Lasix 40mg IV BID Strict I&Os Daily weights TTE Consult cardiology (3) Nephrotic range proteinuria: Plan: Not previously known although with hindsight he had 3+ protein in his urine in June and most likely etiology is his long-term diabetes and HTN causing this Likely also contributing towards hypervolemic state although suspect this is more salvage determiner and I am more concerned recently about his heart as the cause acutely Consult nephrology to consider inpatient workup for myeloma etc... Will start 24 hour collection of urine and defer to nephrology to add on studies for this Continue lisinopril (4) Elevated troponin I level: Plan: Possible NSTEMI with "indigestion" yesterday although suspect more demand ischemia with current troponin levels which appear to be stable. TW flattening on inferior leads appear new, will get repeat EKG in AM Trend troponin TTE Consult cardiology ASA 273mg PO, continue 81mg PO daily I do not feel he warrants IV heparin at this time given lower likelihood of ACS and currently asymptomatic but if further "indigestion" pain overnight this should be consider in addition to repeat EKGs (5) Abnormal Holter monitor finding: Plan: HR 31-112 with Mobitz type 1 block on holter - no presyncope or syncope events therefore of doubtful significance The ventricular ectopy may improve with magnesium but again he appears asymptomatic from this Appreciate cardiology to review this in addition (6) Ileus: Plan: Ongoing since his hip operation This is the main cause of his abdominal distension Suspect hypomagnesemia playing a role but possibly had colon ischemia at the time of his operation. No current large vessel occlusion on CT Plan is to have outpatient colonoscopy to further investigate which appears to be a reasonable next step Reassured daughter this is not from constipation I think a trial of simethicone if worth a trial although I am doubtful this will be effective in his colon (7) GERD (gastroesophageal reflux disease): Plan: "Indigestion" last night, will increase his pantoprazole to 40mg PO daily to rule this out as a cause if he has further episodes suspect it is his heart (8) Tobacco smoker, 1 pack of cigarettes or less per day: Plan: Encouraged cessation Nicotine patch requested, will start in AM (9) Diabetes: Plan: HbA1C 8.1 in June, repeat with AM labs Stop pioglitazone and Janumet, as these come out of his system suspect he will need basal insulin dosing and will consult pharmacy for this Continue Jardiance for HF and diabetes Novolog: --Goal BSG Range: Low 110 mg/dL, High 140 mg/dL --Correction Factor: 50 mg/dL/unit No carb coverage --BSGs ACHS if eating, q6h if npo (10) Hypomagnesemia: Plan: Total 4g Mg sulfate to be given, repeat levels in AM Start Mg oxide 400mg PO BID Repeat levels daily as Mg redistributes Plan VTE Prophylaxis - Lovenox 40mg SQ HS Diet - heart healthy, T2DM, Low Na Disposition - Admit to PCU Admission and Anticipated Discharge Date Admission Date: August 15, 2024 History of Present Illness Chief Complaint: Shortness of breath Primary Care Provider: Efren Card Jung Lauren is an 79 year old male who presents to the ER with shortness of breath. His daughter at bedside presents most of the history. She reports concern for abdominal distension that has been going on since his hip operation in June. This has not been getting worse and no associated abdominal pain. Bowel movements have not been normal but also not diarrhea or constipation. No nausea or vomiting. Secondly she is concerned his weight is up 25lb since his operation with bilateral but right > left leg swelling (since July 18 however she reports not previously had US to assess for DVT in this leg). She reports they have been to acute care in [place] as well as the hospital and had a CT for his abdomen but told no significant findings part from an abnormal EKG which prompted his PCP getting a Holter monitor. His PCP has been doing a workup including a Holter monitor which she was told had a heart block and is also concerned about this but no episodes of presyncope or syncope (heart rate lowest 31 bpm on this with 2nd degree Mobitz type 1). He started getting short of breath without cough or fever started 3 days ago. Last night he describes an episode of "indigestion". This was sternal chest pain that started at 7pm and lasted for 15-20 minutes, no radiation, severity 03/12, initially reported only one further episode it occurred but his daughter thinks he had this multiple times throughout the night as he was unable to sleep. No current chest pain. His daughter gave him his pantoprazole early without relief and drinking milk which usually helps with his indigestion also didn't help. Associated shortness of breath with this and difficulty lying flat. No nausea or diaphoresis. He has no history of heart attack but has diabetes, hypertension and continues to smoke half a pack of cigarettes a day. He takes an aspirin Sunday, Sunday and Sunday only. Given these symptoms his daughter persuaded him to come to the ER today. Allergies Allergy/AdvReac Type Severity Reaction Status Date / Time No Known Allergies Allergy Unknown Verified 08/14/24 12:59 Home Medications Medication Instructions Recorded Confirmed Type aspirin 81 mg tablet,delayed 81 mg PO UD ##0 04/12/07 08/15/24 History release amlodipine 5 mg tablet 5 mg PO QAM 06/26/24 08/15/24 History atorvastatin 40 mg tablet 40 mg PO PM 06/26/24 08/15/24 History cholecalciferol (vitamin D3) 25 25 mcg PO QAM 06/26/24 08/15/24 History mcg (1,000 unit) tablet (Vitamin D3) fenofibrate nanocrystallized 48 mg 48 mg PO PM 06/26/24 08/15/24 History tablet gabapentin 300 mg capsule 300 mg PO BID 06/26/24 08/15/24 History lisinopril 20 mg tablet 20 mg PO BID 06/26/24 08/15/24 History metoprolol succinate 25 mg 25 mg PO PM 06/26/24 08/15/24 History tablet,extended release 24 hr pantoprazole 20 mg tablet,delayed 20 mg PO UD 06/26/24 08/15/24 History release pioglitazone 45 mg tablet 45 mg PO QAM 06/26/24 08/15/24 History sitagliptin phos 100 mg-metformin 1 tab PO PM 06/26/24 08/15/24 History ER 1,000 mg tablet,extend rel 24h mp (Janumet XR) potassium chloride 10 mEq 10 meq PO HS 08/11/24 08/15/24 History tablet,extended release empagliflozin 10 mg tablet 10 mg PO DAILY 08/14/24 08/15/24 History (Jardiance) Past Med/Surg History Problem List (Updated 08/16/24 @ 05:10 by Jeronimo De Leon MD) Elevated troponin (Acute) Hypokalemia (Acute) Hypomagnesemia (Acute) Acute respiratory failure with hypoxia (Acute) Ileus Elevated troponin I level Nephrotic range proteinuria Acute heart failure (Acute) Abnormal Holter monitor finding Abdominal distention Nausea Altered bowel habits Polyneuropathy Osteoarthritis GERD (gastroesophageal reflux disease) Hyperlipemia Pain of left heel Acute kidney injury S/P total left hip arthroplasty Displaced fracture of left femoral neck Fall (Acute) Diabetes Tobacco smoker, 1 pack of cigarettes or less per day History of CVA (cerebrovascular accident) (Acute) Hypertension (Acute) Nondisplaced fracture of left femur (Acute) Medical History Adverse effect of anesthesia Surgical History History of left hip replacement (06/26/24) Hx of colonoscopy 11-25-2020 Hx of cataract surgery Family History Brother Cancer Mother Diabetes Hypertension Father Heart disease Hypertension Other Seen by cardiac surgery service Social History Smoking Status: Current every day smoker Tobacco Type: Cigarettes packs per day: 1; Cigarettes Per Day: 10; Second Hand Exposure: No; Do You Dip or Chew Tobacco: No; Tobacco Cessation Education Requested by Patient: No Hx Alcohol Use: Yes Alcohol type: beer Alcohol Intake Frequency Comment: 6 pack/year Hx Substance Use: No Preferred Language: [place]er Communication Ability: Effective Preventive Maintenance Coordinator Required: No Beliefs That Will Affect Care: None marital status: Current Living Situation: Spouse current occupation: Retired How many Children do You have: 2 Other Information That Helps Us Care for You: No Feels Safe at Home: Yes Safety Concerns: Feels Safe At This Time during the past year weight has: increased > 10 lbs Assistive Devices: Cane and Denture - Upper Review of Systems Review of Systems: All systems reviewed & are unremarkable except as noted in HPI & below Physical Exam Constitutional: WD/WN, vitals as above ENMT: external ear and nose normal, oropharynx normal Respiratory: + respiratory distress, + labored breath ing and + uses accessory muscles; + abnormal respiratory effort Auscultation: + crackles (bibasal); no wheezes Cardiovascular: Rate/Rhythm: regular rate and regular rhythm Heart Sounds: no murmur Extremities: normal capillary refill and + pedal edema (b/l 3+ right > left calf swelling); no calf tenderness Gastrointestinal (Abdomen): normal bowel sounds, soft, nontender, no hepatosplenomegaly Musculoskeletal: no cyanosis or clubbing, extremities motor strength 5/5 Skin: no rashes, warm and dry Neurologic: moves all extremities and awake; not confused Psychiatric: A+Ox3, euthymic affect Results & Data Results & Data Vital Signs (Past 12 Hours) Vital Signs Temp Pulse Pulse Resp BP BP Pulse Ox 08/15/24 16:15 76 18 160/85 H 96 08/15/24 16:07 80 08/15/24 15:17 96 08/15/24 14:59 87 L 08/15/24 14:59 36.6 C 80 20 176/102 H 87 L O2 Del Method O2 Flow Rate 08/15/24 16:15 Nasal Cannula 4 08/15/24 16:07 08/15/24 15:17 Nasal Cannula 4 08/15/24 14:59 Nasal Cannula 0 08/15/24 14:59 Room Air Laboratory Results Abnormal lab results 08/15/24 08/15/24 08/15/24 Range/Units 15:00 17:56 18:00 RBC 3.88 L (4.70-6.10) M/uL Hgb 12.2 L (14.0-18.0) g/dl Hct 37.4 L (42.0-52.0) % RDW Std Deviation 49.1 H (36.4-46.3) fL Potassium 3.4 L (3.5-5.1) mmol/L Glucose 138 H (70-99(Fasting)) mg/dl POC Glucose (70-99) mg/dl Calcium (8.6-10.3) mg/dl Magnesium 1.2 L (1.7-2.4) mg/dl Troponin I High Sens 155.0 H* 158.9 H* (0-20) pg/ml B-Natriuretic Peptide 1278 H (0-100) pg/ml Total Protein (6.0-8.3) gm/dl Albumin (3.4-5.0) gm/dl Ur Specific [place] > 1.045 H (1.000-1.030) Urine Protein 3+ H (Negative) Urine Ketones Trace H (Negative) Urine Blood 1+ H (Negative) Urine RBC (Auto) 6-10 H (0-2) /hpf Urine Bacteria (Auto) 1+ H (None Seen) U Random Total Protein 448.6 H (0-11.9) mg/dl Protein/Creatinin Ratio 6.2 H (0-0.2) Diagnostic Findings CT Angiography Chest With Intravenous Contrast INDICATION: Hypoxia. Shortness of breath. TECHNIQUE: Axial computed tomographic angiography images of the chest with intravenous contrast. Sagittal and coronal reformatted images were created and reviewed. This CT exam was performed using one or more of the following dose reduction techniques: automated exposure control, adjustment of the mA and/or kV according to patient size, and/or use of iterative reconstruction technique. MIP reconstructed images were created and reviewed. CONTRAST: 119 ml of Optiray 320 was administered intravenously. COMPARISON: No relevant prior studies available. FINDINGS: Pulmonary arteries: No abnormality noted. No pulmonary embolism. Aorta: No aneurysm or dissection. Lungs and pleural spaces: Small layering bilateral pleural effusions present. No pneumothorax. Generalized septal thickening noted. There is dependent consolidation and airway thickening in the lower lobes with some segments of small airway mucoid impaction. No bronchiectasis. Heart: The heart is mildly enlarged. No pericardial effusion. No definite evidence of right heart strain. Bones/joints: Degenerative changes in the spine. No lytic or blastic lesions. Soft tissues: No abnormality noted. Lymph nodes: Lateral aortic, aorta pulmonic and precarinal nodes present measuring up to 11 mm short axis dimension. No enlarged hilar nodes present. IMPRESSION: 1. No pulmonary embolus identified. 2. Probable CHF. 3. Dependent infiltrates in both lung bases with bronchitis and segments of small airway thickening. Pneumonia not excluded. 4. Mediastinal adenopathy likely reactive. CT Abdomen and Pelvis With Intravenous Contrast INDICATION: Abdominal distention. TECHNIQUE: Axial computed tomography images of the abdomen and pelvis with intravenous contrast. Sagittal and coronal reformatted images were created and reviewed. This CT exam was performed using one or more of the following dose reduction techniques: automated exposure control, adjustment of the mA and/or kV according to patient size, and/or use of iterative reconstruction technique. CONTRAST: 119ml of Optiray 320 was administered intravenously. COMPARISON: No relevant prior studies available. FINDINGS: Limitations: None. Lung bases: There is airway thickening and dependent consolidation in both lower lobes. Pleural space: Small bilateral layering pleural effusions present right greater than left. Layering right effusion is 4.9 cm thickness and left 2.6 cm. No basilar pneumothorax noted. Heart: No abnormality noted. Mediastinum: No abnormality noted. ABDOMEN: Liver: No abnormality noted. Gallbladder and bile ducts: Tiny gallstones noted. Gallbladder wall thickening cannot be excluded. No ductal dilatation. Pancreas: Homogeneous enhancement. No mass, inflammation or ductal dilation. Spleen: No significant abnormality noted. Adrenals: No significant abnormality noted. Kidneys and ureters: Left nephrectomy. No mass in the nephrectomy bed. Mild cortical scarring right kidney. No stone or hydronephrosis. Simple right renal cysts. No follow-up of these simple cysts is necessary. Stomach and bowel: Prominently aerated redundant colon with segments of moderate formed stool. No obstruction. PELVIS: Appendix: No findings to suggest acute appendicitis. Bladder: Urinary bladder is incompletely distended and appears mildly inflamed. No stones or gas. Urinary bladder appears mildly thickened and inflamed. No gas or stone. Reproductive: No abnormalities noted. ABDOMEN and PELVIS: Intraperitoneal space: Small amounts of ascitic fluid noted over the hepatic dome and in the left lower quadrant. No organized or loculated collection. No free air. Bones/joints: Degenerative changes noted throughout the spine. No acute osseous abnormality seen. Soft tissues: Body wall edema noted. Right inguinal hernia noted containing fat. Vasculature: There is atherosclerosis of the aorta. The right common iliac artery is small possibly related to mild stenosis at the origin. No aneurysm or dissection. Lymph nodes: In the mesenteric fat to the left of the rectosigmoid colon is a soft tissue nodule likely a lymph node enlarged to 2.3 cm short axis dimension series 6 image 271. There are a few normal size scattered retroperitoneal nodes. IMPRESSION: 1. Colonic ileus. No obstruction or segmental thickening. 2. Cholelithiasis with possible acute cholecystitis. Sonography would better assess. 3. Cystitis. 4. Small bilateral pleural effusions and bronchitis and compressive atelectasis in the lower lobes. XR chest 1V portable CLINICAL HISTORY: Chest pain, nonspecific TECHNIQUE: Single frontal radiograph of the chest was obtained. Comparison: Comparison is made to chest radiograph 06/26/2024 FINDINGS: No lines and tubes are seen. Cardiomegaly is noted. Right greater than left lower lung airspace opacities are seen. Trace right pleural effusion. IMPRESSION: 1. Right lower and left lower lung airspace opacity. This may represent atelectasis, pneumonia, and/or aspiration. 2. Trace right pleural effusion. 3. Stable cardiac megaly. Medications Administered ER Medications Given: Albuterol 3ml NEB Furosemide 20mg IV Magnesium sulfate 2g IV Potassium chloride 40 meq PO ECG Rate (beats per minute): 80 Rhythm: normal sinus Findings: + other (premature supraventricular complexes, T wave flattening in inferior leads) Comparison ECG Date: from (June 26, 2024) Change: the following changes noted (T wave flattening in inferior leads is new) Code Status & VTE Plan Code Status Full VTE Prophylaxis Plan VTE Prophylaxis will be ordered: Yes PG Care Time/CCT Total # of Minutes Spent Total Time Spent with Patient: Total time spent is greater than 50% in coordination of care (as documented) at patient's floor/unit and/or counseling patient: Coding Level of Care Code 67395 INT INP/OBS CARE 3/75MIN Diagnoses Acute respiratory failure with hypoxia J96.01 Acute heart failure I50.9 Nephrotic range proteinuria R80.9 Elevated troponin I level R79.89 Abnormal Holter monitor finding R94.31 Ileus K56.7 GERD (gastroesophageal reflux disease) K21.9 Tobacco smoker, 1 pack of cigarettes or less per day F17.210 Diabetes E11.9 Hypomagnesemia E83.42
[2024-08-15] MEDS: POTASSIUM CHLORIDE CRTAB 20 MEQ TABCR PO STA (17:51)
[2024-08-15] MEDS: ASPIRIN 81 MG CHEW PO STA (17:52)
[2024-08-15] MEDS: FUROSEMIDE INJ 20 MG/2 ML VIAL IV ONE (17:53)
[2024-08-15 18:09] LABS: Thyroid Stimulating Hormone 1.227 uIu/ml (0.300-4.500)
[2024-08-15] MEDS ORDERED: ACETAMINOPHEN 325 MG TAB PO PRN (18:21)
[2024-08-15] MEDS: MAGNESIUM SULFATE / D5W 1 GM/100 ML BAG IV SCH ×2 (18:25→21:23)
[2024-08-15 19:14] LABS: Appearance Urine Clear (Clear); Bacteria Urine Automated 1+ (None Seen); Bilirubin Urine Negative (Negative); Blood Urine 1+ (Negative); Cast Urine Automated 0-2 /lpf (0-2); Color Urine Yellow; Epithelial Cell Urine Auto 0-2 /hpf (0-2); Glucose Urine UA Negative (Negative); Ketones Urine Trace (Negative); Leukocyte Esterase Urine Negative (Negative); Nitrite Urine Negative (Negative); Protein Urine 3+ (Negative); Specific Gravity Urine > 1.045 (1.000-1.030); Urobilinogen Urine Negative (Negative); WBC Urine Automated 0-5 /hpf (0-5); pH Urine 5.5 (4.5-7.5)
[2024-08-15 19:19] LABS: Creatinine Urine Random 72.1 mg/dl; Protein Creatinine Ratio Urine 6.2 (0-0.2); Total Protein Urine Random 448.6 mg/dl (0-11.9)
[2024-08-15] MEDS: ATORVASTATIN 40 MG TAB PO SCH (20:08)
[2024-08-15] MEDS: PANTOprazole 40 MG TAB PO SCH (20:08)
[2024-08-15] MEDS: METOPROLOL SUCC 25MG EXT REL TAB PO SCH (20:08)
[2024-08-15] MEDS: GABAPENTIN 300 MG CAP PO SCH (20:08)
[2024-08-15] MEDS: FUROSEMIDE INJ 20 MG/2 ML VIAL IV STA (21:23)
[2024-08-15] MEDS: lisinopril 20 MG TAB PO SCH (22:23)
[2024-08-15] MEDS: ENOXAPARIN INJ 40 MG/0.4 ML SYR SQ SCH (22:24)
--- NOTE | 2024-08-15 23:28 | Ultrasound Report ---
Exam(s): US VENOUS RIGHT LOWER EXTREMITY EXAM: US Duplex Right Lower Extremity Veins CLINICAL HISTORY: Reason for exam: r/o DVT. TECHNIQUE: Real-time duplex ultrasound scan of the right lower extremity veins integrating B-mode two-dimensional vascular structure, Doppler spectral analysis, color flow Doppler imaging and compression. COMPARISON: No relevant prior studies available. FINDINGS: Deep veins: Unremarkable. No DVT in the visualized common femoral, femoral, proximal deep femoral or popliteal veins. The veins demonstrate normal color flow, are normally compressible, with normal phasic flow and/or augmentation response. Superficial veins: Unremarkable. No thrombus in the visualized great saphenous vein. Soft tissues: Soft tissue edema. IMPRESSION: No evidence of acute DVT. Electronically signed by: Tamar Philippe M.D. 08/15/24 23:26 PM
[2024-08-15] MEDS ORDERED: GLUCOSE 40% GEL 15 GM TUBE PO PRN (23:55)
[2024-08-15] MEDS ORDERED: DEXTROSE 50% 50 ML SYRINGE IV PRN (23:55)
[2024-08-15] MEDS ORDERED: PHARMACY GLYCEMIC MGMT CONSULT PRN (23:55)
[2024-08-15] MEDS ORDERED: GLUCAGON FOR INJ 1 MG VIAL SQ PRN (23:55)
[2024-08-15] MEDS ORDERED: CARBOHYDRATES FOR HYPOGLYCEMIA PO PRN (23:55)
[2024-08-15] MEDS ORDERED: GLUCOSE 10 TAB/TUBE PO PRN (23:55)
[2024-08-16 06:41] LABS: Basophils # (auto) 0.04 K/uL (0.00-0.20); Basophils % (auto) 0.5 %; Eosinophils # (auto) 0.33 K/uL (0.00-0.50); Eosinophils % (auto) 4.3 %; Hematocrit (blood only) 35.2 % (42.0-52.0); Hemoglobin 11.3 g/dl (14.0-18.0); Immature Granulocytes # (auto) 0.03 K/uL (0.01-0.20); Immature Granulocytes % (auto) 0.4 %; Lymphocytes # (auto) 1.64 K/uL (1.20-3.40); Lymphocytes % (auto) 21.3 %; Mean Corpuscular Hgb Conc 32.1 g/dL (32.0-36.0); Mean Corpuscular Volume 96.7 fL (80.0-100.0); Mean Platelet Volume 10.3 fL (9.4-12.4); Monocytes # (auto) 0.49 K/uL (0.11-0.59); Monocytes % (auto) 6.4 %; Neutrophils # (auto) 5.17 K/uL (1.40-6.50); Neutrophils % (auto) 67.1 %; Platelet Count 332 K/uL (130-400); RDW Coefficient of Variation 13.9 % (11.5-14.5); RDW Standard Deviation 49.5 fL (36.4-46.3); Red Blood Count 3.64 M/uL (4.70-6.10)
[2024-08-16 07:02] LABS: Albumin Globulin Ratio 1.2 (0.9-2); Albumin Level 3.2 gm/dl (3.4-5.0); BUN Creatinine Ratio 10.8 (10-20); Bilirubin,Total 0.4 mg/dl (0.2-1.0); Calcium 8.4 mg/dl (8.6-10.3); Chol HDL Ratio 2.8 (0-5); Globulin 2.7 gm/dl (2.5-4.0); Magnesium 1.7 mg/dl (1.7-2.4); Total Protein 5.9 gm/dl (6.0-8.3)
[2024-08-16 07:38] LABS: Estimated Average Glucose 151 mg/dl; Hemoglobin A1C 6.9 % (4.5-5.6)
[2024-08-16] MEDS: MAGNESIUM SULFATE / D5W 1 GM/100 ML BAG IV SCH (07:57)
[2024-08-16] MEDS: POTASSIUM CHLORIDE CRTAB 20 MEQ TABCR PO STA (07:59)
[2024-08-16] MEDS: ASPIRIN 81 MG ECTAB PO SCH (07:59)
[2024-08-16] MEDS: MAGNESIUM OXIDE 400 MG TAB PO SCH (07:59)
[2024-08-16] MEDS: amLODIPine BESYLATE 5 MG TAB PO SCH (07:59)
[2024-08-16] MEDS: FUROSEMIDE 40 MG/4 ML VIAL IV SCH (07:59)
[2024-08-16] MEDS: EMPAGLIFLOZIN 10 MG TAB PO SCH (07:59)
[2024-08-16] MEDS: NICOTINE 7 MG/24 HR TDSY TD SCH (08:00)
[2024-08-16] MEDS: INSULIN ASPART PER UNIT CHARGE SC SCH (08:09)
[2024-08-16] MEDS: CYANOCOBALAMIN 1000 MCG/ML VIAL IM SCH (09:24)
[2024-08-16] MEDS: SIMETHICONE 80 MG CHEW PO SCH (09:24)
--- NOTE | 2024-08-16 10:37 | Hospitalist Progress Note ---
Date of Service August 16, 2024 Assessment & Plan (1) Acute respiratory failure with hypoxia: (2) Acute CHF: (3) Elevated troponin: (4) History of CVA (cerebrovascular accident): (5) Hypertension: (6) Hyperlipemia: (7) Abnormal Holter monitor finding: (8) Type 2 diabetes mellitus: (9) Tobacco smoker, 1 pack of cigarettes or less per day: (10) Ileus: (11) B12 deficiency: Plan 79-year-old male with past medical history of CVA in 1988, history of recent left hip arthroplasty for left hip fracture on June 27, 2024, ongoing ileus issues, type 2 diabetes mellitus with neuropathy, essential hypertension, hyperlipidemia, patient with solitary kidney with the recent outpatient abnormal Holter monitor results presents with 3-day history of worsening shortness of breath and orthopnea #Acute hypoxic respiratory failure Likely from congestive heart failure BNP is elevated 1278 Chest x-ray and CTA showed pulmonary edema and no evidence of PE noted Check two-view chest x-ray Procalcitonin is 0.02: Patient is afebrile, no elevated white count and no cough #Acute congestive heart failure, presumably diastolic #History of CVA #Essential hypertension #Hyperlipidemia #Abnormal Holter monitor readings #Elevated troponin: Suspect demand ischemia in setting of acute CHF 2D echo done: Results pending BNP 1278 Continue Lasix 40 mg IV twice daily I/O monitoring Daily weights Continue aspirin plus statin Continue amlodipine 5 mg daily Continue lisinopril 20 mg p.o. twice daily Continue Toprol-XL 25 mg daily Continue Jardiance 10 mg p.o. daily Outpatient Holter monitor: HR 31-112 with Mobitz type 1 block on holter: Await cardiology recommendations Continue telemetry monitoring Check two-view chest x-ray Cardiology has been consulted: Await cardiology consult and recommendations #Single solitary kidney #Proteinuria #Hypokalemia #Hypomagnesemia Nephrology has been consulted 24-hour urine collection has been started Monitor renal function while patient on IV Lasix Replace electrolytes and monitor Avoid nephrotoxic agents including NSAIDs Await nephrology consult and recommendations #Type 2 diabetes mellitus with neuropathy A1c 6.9 Continue Jardiance Accu-Cheks before every meal and nightly with sliding scale insulin coverage Pharmacy has been consulted for glycemic management #Chronic colonic ileus Patient passing gas, reports no abdominal pain, nausea or vomiting Tolerating oral diet Monitor #Tobacco use disorder Smoking cessation counseling provided Continue to nicotine replacement patch #Vitamin B12 deficiency B12 level is 115 Start vitamin B12 supplementation CODE STATUS: Discussed with patient in great length: He wishes to be DNR/DNI: This was also discussed with his daughter Jaleel on the phone. Patient has advanced directives DVT prophylaxis: Lovenox 40 mg subcutaneous daily Care plan discussed with patient, nursing staff and daughter Jaleel updated on the phone Admission and Anticipated Discharge Date Admission Date: August 15, 2024 Subjective Patient seen and examined H&P reviewed Labs reviewed Radiology reviewed Telemetry reviewed Patient reports improvement in his shortness of breath and leg edema. He also feels his abdominal bloating has improved with improvement in abdominal distention. He is tolerating oral diet without any nausea, vomiting or abdominal pain. He reports improvement in his shortness of breath. Denies any chest pain. Denies any cough, fever or chills Social history: Lives at home with his . Uses a cane to ambulate. He drives. He smokes half a pack of cigarettes a day. Social alcohol use. Patient states he has cut down on alcohol use. 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 Physical Exam Physical Exam: General: No acute distress Psych: Awake and alert HEENT: Anicteric sclera, moist oral mucosa CVS: Regular rate and rhythm Lungs: Bilateral air entry with crackles noted at the base, no wheezing noted Abdomen: Soft, nontender, no rebound, no guarding Ext: 2+ pitting edema, no calf tenderness Neuro: No focal motor deficits noted Results & Data Results & Data Vital Signs (Past 12 Hours) Vital Signs Temp Pulse Pulse Resp BP Pulse Ox O2 Del Method 08/16/24 07:55 36.7 C 69 18 160/81 H 96 Nasal Cannula 08/16/24 07:30 65 08/16/24 07:30 Nasal Cannula 08/16/24 03:48 36.8 C 65 18 153/77 H 96 Nasal Cannula O2 Flow Rate 08/16/24 07:55 3 08/16/24 07:30 08/16/24 07:30 08/16/24 03:48 3.0 Laboratory Results Laboratory Results - last 24 hr 08/15/24 08/15/24 08/15/24 15:00 17:56 18:00 WBC 8.48 RBC 3.88 L Hgb 12.2 L Hct 37.4 L MCV 96.4 MCH 31.4 MCHC 32.6 RDW Std Deviation 49.1 H RDW Coeff of Dhaval 13.7 Plt Count 374 MPV 10.3 Immature Gran % (Auto) 0.4 Neut % (Auto) 65.3 Lymph % (Auto) 25.9 [place] % (Auto) 5.7 Eos % (Auto) 2.2 Baso % (Auto) 0.5 Neut # (Auto) 5.54 Lymph # (Auto) 2.20 [place] # (Auto) 0.48 Eos # (Auto) 0.19 Baso # (Auto) 0.04 Immature Gran # (Auto) 0.03 PT 11.2 INR 1.0 Sodium 144 Potassium 3.4 L Chloride 107 Carbon Dioxide 29 Anion Gap 8 BUN 11 Creatinine 0.88 Est Cr Clr Drug Dosing 81.4 eGFR 86.93 BUN/Creatinine Ratio 12.5 Glucose 138 H POC Glucose Estimat Average Glucose Hemoglobin A1c Calcium 9.0 Magnesium 1.2 L Total Bilirubin 0.5 AST 16 ALT 13 Alkaline Phosphatase 95 Troponin I High Sens 155.0 H* 158.9 H* B-Natriuretic Peptide 1278 H Total Protein 6.6 Albumin 3.7 Globulin 2.9 Albumin/Globulin Ratio 1.3 Triglycerides Cholesterol LDL Cholesterol, Calc VLDL Cholesterol, Calc HDL Cholesterol Cholesterol/HDL Ratio Lipase 17 Vitamin B12 Procalcitonin 0.02 TSH 1.227 Urine Color Yellow Urine Appearance Clear Urine pH 5.5 Ur Specific [place] > 1.045 H Urine Protein 3+ H Urine Glucose (UA) Negative Urine Ketones Trace H Urine Blood 1+ H Urine Nitrite Negative Urine Bilirubin Negative Urine Urobilinogen Negative Ur Leukocyte Esterase Negative Urine WBC (Auto) 0-5 Urine RBC (Auto) 6-10 H U Hyaline Cast (Auto) 0-2 U Epithel Cells (Auto) 0-2 Urine Bacteria (Auto) 1+ H Ur Random Creatinine 72.1 U Random Total Protein 448.6 H Protein/Creatinin Ratio 6.2 H Adenovirus (PCR) B. pertussis DNA (PCR) B.parapertussis DNA PCR C. pneumoniae DNA (PCR) Coronavirus OC43 (PCR) Coronavirus HKU1 (PCR) Coronavirus 229E (PCR) SARS-CoV-2 (PCR) Coronavirus NL63 (PCR) Human Metapneumovir PCR Influenza Type A (PCR) Influenza Type B (PCR) M. pneumoniae (PCR) Parainfluenza 1 (PCR) Parainfluenza 2 (PCR) Parainfluenza 3 (PCR) Parainfluenza 4 (PCR) RSV (PCR) Entero/Rhino (PCR) 08/15/24 08/15/24 08/16/24 20:59 Unknown 00:38 WBC RBC Hgb Hct MCV MCH MCHC RDW Std Deviation RDW Coeff of Dhaval Plt Count MPV Immature Gran % (Auto) Neut % (Auto) Lymph % (Auto) [place] % (Auto) Eos % (Auto) Baso % (Auto) Neut # (Auto) Lymph # (Auto) [place] # (Auto) Eos # (Auto) Baso # (Auto) Immature Gran # (Auto) PT INR Sodium Potassium Chloride Carbon Dioxide Anion Gap BUN Creatinine Est Cr Clr Drug Dosing eGFR BUN/Creatinine Ratio Glucose POC Glucose 147 H Estimat Average Glucose Hemoglobin A1c Calcium Magnesium Total Bilirubin AST ALT Alkaline Phosphatase Troponin I High Sens 257.6 H* D B-Natriuretic Peptide Total Protein Albumin Globulin Albumin/Globulin Ratio Triglycerides Cholesterol LDL Cholesterol, Calc VLDL Cholesterol, Calc HDL Cholesterol Cholesterol/HDL Ratio Lipase Vitamin B12 Procalcitonin TSH Urine Color Urine Appearance Urine pH Ur Specific [place] Urine Protein Urine Glucose (UA) Urine Ketones Urine Blood Urine Nitrite Urine Bilirubin Urine Urobilinogen Ur Leukocyte Esterase Urine WBC (Auto) Urine RBC (Auto) U Hyaline Cast (Auto) U Epithel Cells (Auto) Urine Bacteria (Auto) Ur Random Creatinine U Random Total Protein Protein/Creatinin Ratio Adenovirus (PCR) Not Detected B. pertussis DNA (PCR) Not Detected B.parapertussis DNA PCR Not Detected C. pneumoniae DNA (PCR) Not Detected Coronavirus OC43 (PCR) Not Detected Coronavirus HKU1 (PCR) Not Detected Coronavirus 229E (PCR) Not Detected SARS-CoV-2 (PCR) Not Detected Coronavirus NL63 (PCR) Not Detected Human Metapneumovir PCR Not Detected Influenza Type A (PCR) Not Detected Influenza Type B (PCR) Not Detected M. pneumoniae (PCR) Not Detected Parainfluenza 1 (PCR) Not Detected Parainfluenza 2 (PCR) Not Detected Parainfluenza 3 (PCR) Not Detected Parainfluenza 4 (PCR) Not Detected RSV (PCR) Not Detected Entero/Rhino (PCR) Not Detected 08/16/24 08/16/24 06:13 07:25 WBC 7.70 RBC 3.64 L Hgb 11.3 L Hct 35.2 L MCV 96.7 MCH 31.0 MCHC 32.1 RDW Std Deviation 49.5 H RDW Coeff of Dhaval 13.9 Plt Count 332 MPV 10.3 Immature Gran % (Auto) 0.4 Neut % (Auto) 67.1 Lymph % (Auto) 21.3 [place] % (Auto) 6.4 Eos % (Auto) 4.3 Baso % (Auto) 0.5 Neut # (Auto) 5.17 Lymph # (Auto) 1.64 [place] # (Auto) 0.49 Eos # (Auto) 0.33 Baso # (Auto) 0.04 Immature Gran # (Auto) 0.03 PT INR Sodium 144 Potassium 3.0 L Chloride 106 Carbon Dioxide 31 Anion Gap 7 BUN 9 Creatinine 0.83 Est Cr Clr Drug Dosing 85.0 eGFR 88.48 BUN/Creatinine Ratio 10.8 Glucose 140 H POC Glucose 149 H Estimat Average Glucose 151 Hemoglobin A1c 6.9 H Calcium 8.4 L Magnesium 1.7 Total Bilirubin 0.4 AST 14 ALT 12 Alkaline Phosphatase 88 Troponin I High Sens 237.2 H* B-Natriuretic Peptide Total Protein 5.9 L Albumin 3.2 L Globulin 2.7 Albumin/Globulin Ratio 1.2 Triglycerides 142 Cholesterol 116 LDL Cholesterol, Calc 46 VLDL Cholesterol, Calc 28 HDL Cholesterol 42 Cholesterol/HDL Ratio 2.8 Lipase Vitamin B12 115 L Procalcitonin TSH Urine Color Urine Appearance Urine pH Ur Specific [place] Urine Protein Urine Glucose (UA) Urine Ketones Urine Blood Urine Nitrite Urine Bilirubin Urine Urobilinogen Ur Leukocyte Esterase Urine WBC (Auto) Urine RBC (Auto) U Hyaline Cast (Auto) U Epithel Cells (Auto) Urine Bacteria (Auto) Ur Random Creatinine U Random Total Protein Protein/Creatinin Ratio Adenovirus (PCR) B. pertussis DNA (PCR) B.parapertussis DNA PCR C. pneumoniae DNA (PCR) Coronavirus OC43 (PCR) Coronavirus HKU1 (PCR) Coronavirus 229E (PCR) SARS-CoV-2 (PCR) Coronavirus NL63 (PCR) Human Metapneumovir PCR Influenza Type A (PCR) Influenza Type B (PCR) M. pneumoniae (PCR) Parainfluenza 1 (PCR) Parainfluenza 2 (PCR) Parainfluenza 3 (PCR) Parainfluenza 4 (PCR) RSV (PCR) Entero/Rhino (PCR) Diagnostic Findings Chest X-Ray 08/15/24 14:57 XR chest 1V portable CLINICAL HISTORY: Chest pain, nonspecific TECHNIQUE: Single frontal radiograph of the chest was obtained. Comparison: Comparison is made to chest radiograph 06/26/2024 FINDINGS: No lines and tubes are seen. Cardiomegaly is noted. Right greater than left lower lung airspace opacities are seen. Trace right pleural effusion. IMPRESSION: 1. Right lower and left lower lung airspace opacity. This may represent atelectasis, pneumonia, and/or aspiration. 2. Trace right pleural effusion. 3. Stable cardiac megaly. ACT 112: Negative or not required by law. Electronically signed by: Mj Santo M.D. 08/15/2024 3:25 PM Abdomen/Pelvis CT 08/15/24 15:32 EXAM: CT Abdomen and Pelvis With Intravenous Contrast INDICATION: Abdominal distention. TECHNIQUE: Axial computed tomography images of the abdomen and pelvis with intravenous contrast. Sagittal and coronal reformatted images were created and reviewed. This CT exam was performed using one or more of the following dose reduction techniques: automated exposure control, adjustment of the mA and/or kV according to patient size, and/or use of iterative reconstruction technique. CONTRAST: 119ml of Optiray 320 was administered intravenously. COMPARISON: No relevant prior studies available. FINDINGS: Limitations: None. Lung bases: There is airway thickening and dependent consolidation in both lower lobes. Pleural space: Small bilateral layering pleural effusions present right greater than left. Layering right effusion is 4.9 cm thickness and left 2.6 cm. No basilar pneumothorax noted. Heart: No abnormality noted. Mediastinum: No abnormality noted. ABDOMEN: Liver: No abnormality noted. Gallbladder and bile ducts: Tiny gallstones noted. Gallbladder wall thickening cannot be excluded. No ductal dilatation. Pancreas: Homogeneous enhancement. No mass, inflammation or ductal dilation. Spleen: No significant abnormality noted. Adrenals: No significant abnormality noted. Kidneys and ureters: Left nephrectomy. No mass in the nephrectomy bed. Mild cortical scarring right kidney. No stone or hydronephrosis. Simple right renal cysts. No follow-up of these simple cysts is necessary. Stomach and bowel: Prominently aerated redundant colon with segments of moderate formed stool. No obstruction. PELVIS: Appendix: No findings to suggest acute appendicitis. Bladder: Urinary bladder is incompletely distended and appears mildly inflamed. No stones or gas. Urinary bladder appears mildly thickened and inflamed. No gas or stone. Reproductive: No abnormalities noted. ABDOMEN and PELVIS: Intraperitoneal space: Small amounts of ascitic fluid noted over the hepatic dome and in the left lower quadrant. No organized or loculated collection. No free air. Bones/joints: Degenerative changes noted throughout the spine. No acute osseous abnormality seen. Soft tissues: Body wall edema noted. Right inguinal hernia noted containing fat. Vasculature: There is atherosclerosis of the aorta. The right common iliac artery is small possibly related to mild stenosis at the origin. No aneurysm or dissection. Lymph nodes: In the mesenteric fat to the left of the rectosigmoid colon is a soft tissue nodule likely a lymph node enlarged to 2.3 cm short axis dimension series 6 image 271. There are a few normal size scattered retroperitoneal nodes. IMPRESSION: 1. Colonic ileus. No obstruction or segmental thickening. 2. Cholelithiasis with possible acute cholecystitis. Sonography would better assess. 3. Cystitis. 4. Small bilateral pleural effusions and bronchitis and compressive atelectasis in the lower lobes. ACT 112: Negative or not required by law. Electronically signed by Alina Burciaga 08-15-2024 4:25 PM Chest CTA 08/15/24 15:32 EXAM: CT Angiography Chest With Intravenous Contrast INDICATION: Hypoxia. Shortness of breath. TECHNIQUE: Axial computed tomographic angiography images of the chest with intravenous contrast. Sagittal and coronal reformatted images were created and reviewed. This CT exam was performed using one or more of the following dose reduction techniques: automated exposure control, adjustment of the mA and/or kV according to patient size, and/or use of iterative reconstruction technique. MIP reconstructed images were created and reviewed. CONTRAST: 119 ml of Optiray 320 was administered intravenously. COMPARISON: No relevant prior studies available. FINDINGS: Pulmonary arteries: No abnormality noted. No pulmonary embolism. Aorta: No aneurysm or dissection. Lungs and pleural spaces: Small layering bilateral pleural effusions present. No pneumothorax. Generalized septal thickening noted. There is dependent consolidation and airway thickening in the lower lobes with some segments of small airway mucoid impaction. No bronchiectasis. Heart: The heart is mildly enlarged. No pericardial effusion. No definite evidence of right heart strain. Bones/joints: Degenerative changes in the spine. No lytic or blastic lesions. Soft tissues: No abnormality noted. Lymph nodes: Lateral aortic, aorta pulmonic and precarinal nodes present measuring up to 11 mm short axis dimension. No enlarged hilar nodes present. IMPRESSION: 1. No pulmonary embolus identified. 2. Probable CHF. 3. Dependent infiltrates in both lung bases with bronchitis and segments of small airway thickening. Pneumonia not excluded. 4. Mediastinal adenopathy likely reactive. ACT 112: Negative or not required by law. Electronically signed by Alina Burciaga 08-15-2024 4:29 PM Venous Doppler Study 08/15/24 17:37 Exam(s): US VENOUS RIGHT LOWER EXTREMITY EXAM: US Duplex Right Lower Extremity Veins CLINICAL HISTORY: Reason for exam: r/o DVT. TECHNIQUE: Real-time duplex ultrasound scan of the right lower extremity veins integrating B-mode two-dimensional vascular structure, Doppler spectral analysis, color flow Doppler imaging and compression. COMPARISON: No relevant prior studies available. FINDINGS: Deep veins: Unremarkable. No DVT in the visualized common femoral, femoral, proximal deep femoral or popliteal veins. The veins demonstrate normal color flow, are normally compressible, with normal phasic flow and/or augmentation response. Superficial veins: Unremarkable. No thrombus in the visualized great saphenous vein. Soft tissues: Soft tissue edema. IMPRESSION: No evidence of acute DVT. Electronically signed by: Tamar Philippe M.D. 08/15/24 23:26 PM PG Care Time/CCT Total # of Minutes Spent Total Time Spent with Patient: Total time spent is greater than 50% in coordination of care (as documented) at patient's floor/unit and/or counseling patient: Coding Level of Care Code 65252 SUB INP/OBS CARE 3/50MIN Diagnoses Acute respiratory failure with hypoxia J96.01 Acute CHF I50.9 Elevated troponin R79.89 History of CVA (cerebrovascular accident) Z86.73 Hypertension I10 Hypertension type: unspecified Hyperlipemia E78.5 Abnormal Holter monitor finding R94.31 Type 2 diabetes mellitus E11.9 Tobacco smoker, 1 pack of cigarettes or less per day F17.210 Ileus K56.7 B12 deficiency E53.8 (5) Hypertension Hypertension type: unspecified Qualified Code(s): I10 - Essential (primary) hypertension
--- NOTE | 2024-08-16 11:47 | XRay Report ---
XR chest 2V PA/lateral CLINICAL HISTORY: chf vs pna COMPARISON STUDY: Chest radiograph and chest CT August 15, 2024. FINDINGS: There is no pneumothorax. Moderate right and small left pleural effusions with associated b ibasilar opacities are again noted. There is cardiomegaly with persistent pulmonary edema. IMPRESSION: 1. Cardiomegaly with persistent pulmonary edema. 2. Moderate right and small left pleural effusions with associated bibasilar opacities which could re flect atelectasis or pneumonia. ACT 112: Negative or not required by law. Electronically signed by: Tomy Valdez M.D. 08/16/2024 11:46 AM
--- NOTE | 2024-08-16 11:57 | Nephrology Consultation ---
Date of Consultation August 16, 2024 Assessment & Plan (1) Nephrotic range proteinuria: (2) Hypokalemia: (3) Hypomagnesemia: (4) Acute respiratory failure with hypoxia: (5) Elevated troponin I level: (6) Diabetes: (7) Hypertension: Plan 79-year-old gentleman with history of hypertension, diabetes, smoking admitted to the hospital with generalized weakness and weight gain of 15 pounds over last 1 month. Has normal kidney function, creatinine was 0.9 mg/dl although he did have an episode of CHRISTIAN in June when admitted for fall and femur fracture, creatinine was 1.9 mg/dl which rapidly improved. Urinalysis at that time also showed 3+ proteinuria similar to what we are seeing now, spot urine protein creatinine ratio was 6.2. Imaging showed solitary right kidney possibly congenital. High-grade proteinuria with normal kidney function could be secondary to hype rtension, diabetes and smoking however cannot exclude possibility for secondary FSGS, membranous nephropathy or paraproteinemia considering advanced age. -- 24-hour urine collection for proteinuria is pending -- Will check paraproteinemia workup, PLA2R, ROSIE and complements. -- Focus on better blood pressure control, increase amlodipine to 10 mg daily. -- Continue on lisinopril 20 mg twice a day -- Okay to continue on IV Lasix now but consider changing to p.o. starting tomorrow if urine output remains decent. -- Low-salt diet -- replace electrolyte while on IV diuretics. Thank you for allowing me to participate in your patient's care. It was a pleasure to see Mr. Lauren. History of Present Illness Reason for Consultation: Proteinuria. Attending Physician: Armando San MD History of Present Illness Mr. Jung Lauren is a 79-year-old male with PMH of hypertension, T2DM, hyperlipidemia, solitary right kidney admitted to the hospital with generalized weakness, shortness of breath and weight gain. Nephrology consult was requested for management of high-grade proteinuria. EMR records are reviewed in detail during patient's visit. Jung was brought to ER yesterday with 10 to 15 pounds with over last few weeks, shortness of breath and generalized weakness. He was he was admitted in hospital from 06/26/2024 to 07/03/2024 after he had a fall and femoral fracture and had total hip arthroplasty on 06/27/2024. During hospitalization he had an episode of CHRISTIAN, creatinine was 1.9 which rapidly resolved. On admission yesterday kidney function was normal with a creatinine 0.8 mg per DL. Urinalysis showed 3+ proteinuria, 6-10 RBCs/HPF, protein creatinine ratio 6.2. Albumin was 3.2, normal serum calcium. Hemoglobin 11.2. BNP was elevated at 1200. Troponin was elevated. Denies regular use of NSAIDs. Blood pressure has been running high he was continued on amlodipine, Jardiance, lisinopril. Recent renal imaging showed normal solitary right kidney. Clinically he was noted to be volume overloaded with lower extremity edema, CT chest was negative for PE but noted to have bilateral pleural effusion and pulmonary congestion. Lower extremity Doppler was negative for DVT. He was started on Lasix 40 mg IV twice a day. Was never on diuretic before. Patient does smoke daily but denies history of COPD. No known family history of CKD or ESKD. Used to work at [employer], retired. History of hypertension for years, slightly elevated on amlodipine, lisinopril, Jardiance. Imaging showed solitary right kidney but he does not recall ever having nephrectomy, ? Congenital solitary kidney. Diabetes for years, recently A1c 6.8. No known history of retinopathy. Recently noted to have cardiac arrhythmia with second-degree block now waiting for further cardiology evaluation. Previously had a colonoscopy 3 years ago and recently evaluated for repeat colonoscopy for abdominal bloating but first waiting for cardiology evaluation. Reports overall feeling better after getting IV diuretics and noticing some improvement in abdominal distention and lower extremity edema. Allergies Allergy/AdvReac Type Severity Reaction Status Date / Time No Known Allergies Allergy Unknown Verified 08/14/24 12:59 Home Medications Medication Instructions Recorded Confirmed Type aspirin 81 mg tablet,delayed 81 mg PO UD ##0 04/12/07 08/15/24 History release amlodipine 5 mg tablet 5 mg PO QAM 06/26/24 08/15/24 History atorvastatin 40 mg tablet 40 mg PO PM 06/26/24 08/15/24 History cholecalciferol (vitamin D3) 25 25 mcg PO QAM 06/26/24 08/15/24 History mcg (1,000 unit) tablet (Vitamin D3) fenofibrate nanocrystallized 48 mg 48 mg PO PM 06/26/24 08/15/24 History tablet gabapentin 300 mg capsule 300 mg PO BID 06/26/24 08/15/24 History lisinopril 20 mg tablet 20 mg PO BID 06/26/24 08/15/24 History metoprolol succinate 25 mg 25 mg PO PM 06/26/24 08/15/24 History tablet,extended release 24 hr pantoprazole 20 mg tablet,delayed 20 mg PO UD 06/26/24 08/15/24 History release pioglitazone 45 mg tablet 45 mg PO QAM 06/26/24 08/15/24 History sitagliptin phos 100 mg-metformin 1 tab PO PM 06/26/24 08/15/24 History ER 1,000 mg tablet,extend rel 24h mp (Janumet XR) potassium chloride 10 mEq 10 meq PO HS 08/11/24 08/15/24 History tablet,extended release empagliflozin 10 mg tablet 10 mg PO DAILY 08/14/24 08/15/24 History (Jardiance) Patient History Medical History Adverse effect of anesthesia Surgical History History of left hip replacement (06/26/24) Hx of colonoscopy 11-25-2020 Hx of cataract surgery Family History Brother Cancer Mother Diabetes Hypertension Father Heart disease Hypertension Other Seen by cardiac surgery service Social History Smoking Status: Current every day smoker Tobacco Type: Cigarettes packs per day: 1; Cigarettes Per Day: 10; Second Hand Exposure: No; Do You Dip or Chew Tobacco: No; Tobacco Cessation Education Requested by Patient: No Hx Alcohol Use: Yes Alcohol type: beer Alcohol Intake Frequency Comment: 6 pack/year Hx Substance Use: No Preferred Language: Korean Communication Ability: Effective Cage Loader Required: No Beliefs That Will Affect Care: None marital status: Current Living Situation: Spouse current occupation: Retired How many Children do You have: 2 Other Information That Helps Us Care for You: No Feels Safe at Home: Yes Safety Concerns: Feels Safe At This Time during the past year weight has: increased > 10 lbs Assistive Devices: Cane and Denture - Upper Review of Systems Review of Systems: Review of system was done and pertinent positives and negatives are mentioned above. Physical Exam Constitutional: WD/WN, vitals as above no acute distress Eyes: + anicteric sclerae Neck: normal visual inspection Respiratory: no respiratory distress Auscultation: + diminished lung sounds and + wheezes Cardiovascular: Rate/Rhythm: regular rate and regular rhythm Heart Sounds: normal S1 and normal S2 Extremities: + edema Gastrointestinal (Abdomen): Inspection/Auscultation: + abdomen distended and normal bowel sounds Percussion/Palpation: abdomen soft; abdomen nontender, no guarding and abdomen not rigid Musculoskeletal: Extremities: extremities normal to inspection Skin: no rashes, warm and dry Neurologic: no focal motor deficits Psychiatric: Orientation: alert and oriented x 3 Affect: euthymic affect Results & Data Vital Signs (Past 12 Hours) Vital Signs Temp Pulse Pulse Resp BP Pulse Ox O2 Del Method 08/16/24 07:55 36.7 C 69 18 160/81 H 96 Nasal Cannula 08/16/24 07:30 65 08/16/24 07:30 Nasal Cannula 08/16/24 03:48 36.8 C 65 18 153/77 H 96 Nasal Cannula O2 Flow Rate 08/16/24 07:55 3 08/16/24 07:30 08/16/24 07:30 08/16/24 03:48 3.0 PG Care Time/CCT Total # of Minutes Spent Total Time Spent with Patient: Total time spent is greater than 50% in coordination of care (as documented) at patient's floor/unit and/or counseling patient: Coding Level of Care Code 53604 INT INP/OBS CARE 3/75MIN Diagnoses Nephrotic range proteinuria R80.9 Hypokalemia E87.6 Hypomagnesemia E83.42 Acute respiratory failure with hypoxia J96.01 Elevated troponin I level R79.89 Diabetes E11.9 Hypertension I10 Hypertension type: unspecified (7) Hypertension Hypertension type: unspecified Qualified Code(s): I10 - Essential (primary) hypertension
--- NOTE | 2024-08-16 12:40 | XCELERA ---
[id number]
--- NOTE | 2024-08-16 12:40 | Cardiology Consultation ---
Date of Consultation August 16, 2024 Assessment & Plan (1) Acute heart failure with mildly reduced ejection fraction (HFmrEF, 41-49%): (2) Elevated troponin: (3) Chest pain: (4) Cardiomyopathy: (5) Hyperlipemia: (6) Hypertension: (7) Tobacco smoker, 1 pack of cigarettes or less per day: (8) Mobitz I: (9) Paroxysmal ventricular tachycardia: Plan ASSESSMENT/PLAN: 1. Acute heart failure with mildly reduced EF: Although improved, he still remains hypervolemic. Continue diuretic with goal of approximately 1 L net negative fluid balance per day. We discussed the diagnosis. Discussed the importance of low-sodium diet, less than 2000 mg daily. Strict I's and O's. Daily weights. Discontinue lisinopril and start Entresto 36 hours later. Start spironolactone. Continue low-dose metoprolol succinate. Continue SGLT2 inhibitor. 2. Cardiomyopathy: Reduced LV systolic function with regional wall motion abnormality. Given presentation of acute heart failure, elevated troponins, and chest discomfort, recommend cardiac catheterization nonurgently. Risk and benefits were discussed with him. He was agreeable to proceed. He was made aware that CT surgery is not available at this facility. Anticipate cardiac catheterization at the beginning of the week after further diuresis. 3. Elevated troponin: Multiple risk factors for CAD. Had chest discomfort, although he describes this as acid reflux, which is possible, presentation concerning for ischemic heart disease as well. Cardiac catheterization as above. No further chest discomfort. 4. Chest pain: As above. 5. Dyslipidemia: Continue high intensity statin therapy. LDL well-controlled. 6. Hypertension: Blood pressure has been elevated. Continue diuresis. Start spironolactone as above. Will continue to titrate GDMT for heart failure. 7. Mobitz 1: Continue low-dose beta-lui. No symptoms to suggest significant pause/bradycardia. No indication for pacemaker at this time. This was discussed with him. 8. Nonsustained ventricular tachycardia: Reported on outside Holter from 08/07/2024. Continue beta-lui. Continue telemetry. 9. Tobacco abuse: Recommended that he stop smoking. 10. Disposition: Cardiology will continue to follow. Plan of care communicated with primary hospitalist, Dr. San. Asked if patient family was presenting to the bedside and he stated that family would be here tomorrow. Plan to speak with family tomorrow and address any concerns/questions. Highly complex medical issues. Thank you for allowing me to participate in the care of your patient. Please call for any other questions or concerns. Sincerely, Cam Young M.D. History of Present Illness Reason for Consultation: Heart failure Requesting Physician: Joshua Abel MD Attending Physician: Armando San MD History of Present Illness Mr. Lauren is a very pleasant 79-year-old gentleman with a history significant for Mobitz 1, diabetes, tobacco abuse, hypertension, dyslipidemia, and stroke in 1988. He was admitted on 08/15/2024 with acute respiratory failure with hypoxia, concerning for heart failure. For the past 2 days, he noted shortness of breath while sitting in his lift chair. He is recovering/rehabbing from left total hip replacement on 06/26/2024. He does not maintain a low-sodium diet and that afternoon, had liver and onions. Several hours later, he was acutely short of breath and had "heartburn" in the substernal area. There was no radiation of the pain and it occurred at rest. It resolved within 15 to 20 minutes. He has had issues with heart burn in the past intermittently, although this presenting symptom was worse than usual and lasted longer. He has noted increased lower extremity edema since his hip surgery, specifically in the left leg compared to the right but bilateral in general. He also noted approximately 25 pound weight gain since his hip surgery. While here, he received intravenous diuretics and feels back to baseline while laying in bed. He denies exertional chest discomfort, syncope, near syncope, palpitations, melena, hematochezia, or hematuria. He had an outpatient Holter done through his PCP which reports Mobitz 1. Review of systems: As above. Family history: No known premature CAD. Social history: Has smoked since the age of 14, up to 1.5 packs/day, currently smoking half pack per day. Rare alcohol. No drugs. Lives at home with his . Has 2 daughters. 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 [facility] in [facility]. He was unaccompanied. Allergies Allergy/AdvReac Type Severity Reaction Status Date / Time No Known Allergies Allergy Unknown Verified 08/14/24 12:59 Home Medications Medication Instructions Recorded Confirmed Type aspirin 81 mg tablet,delayed 81 mg PO UD ##0 04/12/07 08/15/24 History release amlodipine 5 mg tablet 5 mg PO QAM 06/26/24 08/15/24 History atorvastatin 40 mg tablet 40 mg PO PM 06/26/24 08/15/24 History cholecalciferol (vitamin D3) 25 25 mcg PO QAM 06/26/24 08/15/24 History mcg (1,000 unit) tablet (Vitamin D3) fenofibrate nanocrystallized 48 mg 48 mg PO PM 06/26/24 08/15/24 History tablet gabapentin 300 mg capsule 300 mg PO BID 06/26/24 08/15/24 History lisinopril 20 mg tablet 20 mg PO BID 06/26/24 08/15/24 History metoprolol succinate 25 mg 25 mg PO PM 06/26/24 08/15/24 History tablet,extended release 24 hr pantoprazole 20 mg tablet,delayed 20 mg PO UD 06/26/24 08/15/24 History release pioglitazone 45 mg tablet 45 mg PO QAM 06/26/24 08/15/24 History sitagliptin phos 100 mg-metformin 1 tab PO PM 06/26/24 08/15/24 History ER 1,000 mg tablet,extend rel 24h mp (Janumet XR) potassium chloride 10 mEq 10 meq PO HS 08/11/24 08/15/24 History tablet,extended release empagliflozin 10 mg tablet 10 mg PO DAILY 08/14/24 08/15/24 History (Jardiance) Problem List (Updated 08/16/24 @ 16:50 by José Miguel Young MD) Paroxysmal ventricular tachycardia Mobitz I Cardiomyopathy Chest pain Acute heart failure with mildly reduced ejection fraction (HFmrEF, 41-49%) B12 deficiency Type 2 diabetes mellitus Acute CHF Elevated troponin (Acute) Hypokalemia (Acute) Hypomagnesemia (Acute) Acute respiratory failure with hypoxia (Acute) Ileus Elevated troponin I level Nephrotic range proteinuria Acute heart failure (Acute) Abnormal Holter monitor finding Abdominal distention Nausea Altered bowel habits Polyneuropathy Osteoarthritis GERD (gastroesophageal reflux disease) Hyperlipemia Pain of left heel Acute kidney injury S/P total left hip arthroplasty Displaced fracture of left femoral neck Fall (Acute) Diabetes Tobacco smoker, 1 pack of cigarettes or less per day History of CVA (cerebrovascular accident) (Acute) Hypertension (Acute) Nondisplaced fracture of left femur (Acute) Patient History Medical History Adverse effect of anesthesia Surgical History History of left hip replacement (06/26/24) Hx of colonoscopy 11-25-2020 Hx of cataract surgery Family History Brother Cancer Mother Diabetes Hypertension Father Heart disease Hypertension Other Seen by cardiac surgery service Social History Smoking Status: Current every day smoker Tobacco Type: Cigarettes packs per day: 1; Cigarettes Per Day: 10; Second Hand Exposure: No; Do You Dip or Chew Tobacco: No; Tobacco Cessation Education Requested by Patient: No Hx Alcohol Use: Yes Alcohol type: beer Alcohol Intake Frequency Comment: 6 pack/year Hx Substance Use: No Preferred Language: [place] Communication Ability: Effective Information Services Vice President Required: No Beliefs That Will Affect Care: None marital status: Current Living Situation: Spouse current occupation: Retired How many Children do You have: 2 Other Information That Helps Us Care for You: No Feels Safe at Home: Yes Safety Concerns: Feels Safe At This Time during the past year weight has: increased > 10 lbs Assistive Devices: Cane and Denture - Upper Physical Exam Physical Exam: Gen.: No acute distress. Alert and oriented. HEENT: Anicteric sclera. Neck: Mild JVD. No bruits. Normal carotid upstrokes bilaterally. Cardiac: Regular with ectopy. Normal S1-S2. No murmurs, rubs, or gallops. Pulmonary: Decreased breath sounds at the bases, but otherwise clear to auscultation bilaterally without wheezes, rales, or rhonchi. Abdomen: Soft, nontender, nondistended, with normoactive bowel sounds. No bruits noted. Extremities: 2+ radial pulses bilaterally. 2+ posterior tibialis pulses bilaterally. 2+ bilateral lower extremity edema to the knees. No cyanosis. Psychiatric: Affect appears appropriate. Results & Data Vital Signs (Past 12 Hours) Vital Signs Temp Pulse Pulse Resp BP Pulse Ox O2 Del Method 08/16/24 12:14 95 Room Air 08/16/24 12:13 36.7 C 72 18 147/77 H 99 Nasal Cannula 08/16/24 07:55 36.7 C 69 18 160/81 H 96 Nasal Cannula 08/16/24 07:30 65 08/16/24 07:30 Nasal Cannula 08/16/24 03:48 36.8 C 65 18 153/77 H 96 Nasal Cannula O2 Flow Rate 08/16/24 12:14 08/16/24 12:13 2 08/16/24 07:55 3 08/16/24 07:30 08/16/24 07:30 08/16/24 03:48 3.0 Intake & Output 08/14/24 08/15/24 08/16/24 08/17/24 06:59 06:59 06:59 06:59 Intake Total 500.000 / 500.000 190 / 190 Output Total 1450 / 1450 450 / 450 Balance -950.000 / -950.000 -260 / -260 Weight 217 lb 9.54 oz Laboratory Results Laboratory Results - last 24 hr 08/15/24 08/15/24 08/15/24 15:00 17:56 18:00 WBC 8.48 RBC 3.88 L Hgb 12.2 L Hct 37.4 L MCV 96.4 MCH 31.4 MCHC 32.6 RDW Std Deviation 49.1 H RDW Coeff of Dhaval 13.7 Plt Count 374 MPV 10.3 Immature Gran % (Auto) 0.4 Neut % (Auto) 65.3 Lymph % (Auto) 25.9 Baker % (Auto) 5.7 Eos % (Auto) 2.2 Baso % (Auto) 0.5 Neut # (Auto) 5.54 Lymph # (Auto) 2.20 Baker # (Auto) 0.48 Eos # (Auto) 0.19 Baso # (Auto) 0.04 Immature Gran # (Auto) 0.03 PT 11.2 INR 1.0 Sodium 144 Potassium 3.4 L Chloride 107 Carbon Dioxide 29 Anion Gap 8 BUN 11 Creatinine 0.88 Est Cr Clr Drug Dosing 81.4 eGFR 86.93 BUN/Creatinine Ratio 12.5 Glucose 138 H POC Glucose Estimat Average Glucose Hemoglobin A1c Calcium 9.0 Magnesium 1.2 L Total Bilirubin 0.5 AST 16 ALT 13 Alkaline Phosphatase 95 Troponin I High Sens 155.0 H* 158.9 H* B-Natriuretic Peptide 1278 H Total Protein 6.6 Albumin 3.7 Globulin 2.9 Albumin/Globulin Ratio 1.3 Triglycerides Cholesterol LDL Cholesterol, Calc VLDL Cholesterol, Calc HDL Cholesterol Cholesterol/HDL Ratio Lipase 17 Vitamin B12 Procalcitonin 0.02 TSH 1.227 Urine Color Yellow Urine Appearance Clear Urine pH 5.5 Ur Specific Corona > 1.045 H Urine Protein 3+ H Urine Glucose (UA) Negative Urine Ketones Trace H Urine Blood 1+ H Urine Nitrite Negative Urine Bilirubin Negative Urine Urobilinogen Negative Ur Leukocyte Esterase Negative Urine WBC (Auto) 0-5 Urine RBC (Auto) 6-10 H U Hyaline Cast (Auto) 0-2 U Epithel Cells (Auto) 0-2 Urine Bacteria (Auto) 1+ H Ur Random Creatinine 72.1 U Random Total Protein 448.6 H Protein/Creatinin Ratio 6.2 H Adenovirus (PCR) B. pertussis DNA (PCR) B.parapertussis DNA PCR C. pneumoniae DNA (PCR) Coronavirus OC43 (PCR) Coronavirus HKU1 (PCR) Coronavirus 229E (PCR) SARS-CoV-2 (PCR) Coronavirus NL63 (PCR) Human Metapneumovir PCR Influenza Type A (PCR) Influenza Type B (PCR) M. pneumoniae (PCR) Parainfluenza 1 (PCR) Parainfluenza 2 (PCR) Parainfluenza 3 (PCR) Parainfluenza 4 (PCR) RSV (PCR) Entero/Rhino (PCR) 08/15/24 08/15/24 08/16/24 20:59 Unknown 00:38 WBC RBC Hgb Hct MCV MCH MCHC RDW Std Deviation RDW Coeff of Dhaval Plt Count MPV Immature Gran % (Auto) Neut % (Auto) Lymph % (Auto) Baker % (Auto) Eos % (Auto) Baso % (Auto) Neut # (Auto) Lymph # (Auto) Baker # (Auto) Eos # (Auto) Baso # (Auto) Immature Gran # (Auto) PT INR Sodium Potassium Chloride Carbon Dioxide Anion Gap BUN Creatinine Est Cr Clr Drug Dosing eGFR BUN/Creatinine Ratio Glucose POC Glucose 147 H Estimat Average Glucose Hemoglobin A1c Calcium Magnesium Total Bilirubin AST ALT Alkaline Phosphatase Troponin I High Sens 257.6 H* D B-Natriuretic Peptide Total Protein Albumin Globulin Albumin/Globulin Ratio Triglycerides Cholesterol LDL Cholesterol, Calc VLDL Cholesterol, Calc HDL Cholesterol Cholesterol/HDL Ratio Lipase Vitamin B12 Procalcitonin TSH Urine Color Urine Appearance Urine pH Ur Specific Corona Urine Protein Urine Glucose (UA) Urine Ketones Urine Blood Urine Nitrite Urine Bilirubin Urine Urobilinogen Ur Leukocyte Esterase Urine WBC (Auto) Urine RBC (Auto) U Hyaline Cast (Auto) U Epithel Cells (Auto) Urine Bacteria (Auto) Ur Random Creatinine U Random Total Protein Protein/Creatinin Ratio Adenovirus (PCR) Not Detected B. pertussis DNA (PCR) Not Detected B.parapertussis DNA PCR Not Detected C. pneumoniae DNA (PCR) Not Detected Coronavirus OC43 (PCR) Not Detected Coronavirus HKU1 (PCR) Not Detected Coronavirus 229E (PCR) Not Detected SARS-CoV-2 (PCR) Not Detected Coronavirus NL63 (PCR) Not Detected Human Metapneumovir PCR Not Detected Influenza Type A (PCR) Not Detected Influenza Type B (PCR) Not Detected M. pneumoniae (PCR) Not Detected Parainfluenza 1 (PCR) Not Detected Parainfluenza 2 (PCR) Not Detected Parainfluenza 3 (PCR) Not Detected Parainfluenza 4 (PCR) Not Detected RSV (PCR) Not Detected Entero/Rhino (PCR) Not Detected 08/16/24 08/16/24 08/16/24 06:13 07:25 11:25 WBC 7.70 RBC 3.64 L Hgb 11.3 L Hct 35.2 L MCV 96.7 MCH 31.0 MCHC 32.1 RDW Std Deviation 49.5 H RDW Coeff of Dhaval 13.9 Plt Count 332 MPV 10.3 Immature Gran % (Auto) 0.4 Neut % (Auto) 67.1 Lymph % (Auto) 21.3 Baker % (Auto) 6.4 Eos % (Auto) 4.3 Baso % (Auto) 0.5 Neut # (Auto) 5.17 Lymph # (Auto) 1.64 Baker # (Auto) 0.49 Eos # (Auto) 0.33 Baso # (Auto) 0.04 Immature Gran # (Auto) 0.03 PT INR Sodium 144 Potassium 3.0 L Chloride 106 Carbon Dioxide 31 Anion Gap 7 BUN 9 Creatinine 0.83 Est Cr Clr Drug Dosing 85.0 eGFR 88.48 BUN/Creatinine Ratio 10.8 Glucose 140 H POC Glucose 149 H 164 H Estimat Average Glucose 151 Hemoglobin A1c 6.9 H Calcium 8.4 L Magnesium 1.7 Total Bilirubin 0.4 AST 14 ALT 12 Alkaline Phosphatase 88 Troponin I High Sens 237.2 H* B-Natriuretic Peptide Total Protein 5.9 L Albumin 3.2 L Globulin 2.7 Albumin/Globulin Ratio 1.2 Triglycerides 142 Cholesterol 116 LDL Cholesterol, Calc 46 VLDL Cholesterol, Calc 28 HDL Cholesterol 42 Cholesterol/HDL Ratio 2.8 Lipase Vitamin B12 115 L Procalcitonin TSH Urine Color Urine Appearance Urine pH Ur Specific Corona Urine Protein Urine Glucose (UA) Urine Ketones Urine Blood Urine Nitrite Urine Bilirubin Urine Urobilinogen Ur Leukocyte Esterase Urine WBC (Auto) Urine RBC (Auto) U Hyaline Cast (Auto) U Epithel Cells (Auto) Urine Bacteria (Auto) Ur Random Creatinine U Random Total Protein Protein/Creatinin Ratio Adenovirus (PCR) B. pertussis DNA (PCR) B.parapertussis DNA PCR C. pneumoniae DNA (PCR) Coronavirus OC43 (PCR) Coronavirus HKU1 (PCR) Coronavirus 229E (PCR) SARS-CoV-2 (PCR) Coronavirus NL63 (PCR) Human Metapneumovir PCR Influenza Type A (PCR) Influenza Type B (PCR) M. pneumoniae (PCR) Parainfluenza 1 (PCR) Parainfluenza 2 (PCR) Parainfluenza 3 (PCR) Parainfluenza 4 (PCR) RSV (PCR) Entero/Rhino (PCR) Diagnostic Findings ECHO 08/16/24: 1. Mildly dilated left ventricle with mildly to moderately reduced systolic function. EF 40-45%. Mild global hypokinesis with severe hypokinesis to akinesis involving the basal inferior wall. Moderate concentric left ventricular hypertrophy. 2. Mild left atrial dilation. 3. Sclerotic aortic valve without significant stenosis. 4. Mild mitral regurgitation. 5. Normal estimated right ventricular systolic pressure. 6. Technically difficult study, enhanced with IV Definity. 7. No prior study available for comparison. On 08/16/2024, chart, nephrology note reviewed. History and physical report reviewed. Labs reviewed and demonstrated elevated high-sensitivity troponin peaking at 257; hypokalemia, normal renal function, elevated A1c, mild anemia, normal transaminase levels, excellent lipids. Elevated BNP. ECG personally reviewed 08/15/2024: Sinus rhythm with premature supraventricular complexes 80 bpm. Poor R wave progression. ECG 08/16/2024 at 5:05 AM: Sinus rhythm 68 bpm. Possible anterior infarct. Chest x-ray 08/16/2024: Moderate right and small left pleural effusions. Pulmonary edema per radiology. Image personally reviewed and notable for pleural effusion and pulmonary vascular congestion. CTA chest 08/15/2024: No PE. Dependent infiltrates in both lung bases with bronchitis and segments of small airway thickening per radiology. Bilateral pleural effusions. Right lower extremity venous Doppler 08/15/2024: No acute DVT. CT abdomen/pelvis 08/15/2024: Colonic ileus. Cholelithiasis with possible acute cholecystitis per radiology. Cystitis. Outside Holter report reviewed from 08/07/2024. Reported sinus rhythm with episodes of Mobitz 1 and also 2-1 AV block without significant pause. There were rare runs of nonsustained VT up to 6 beats and otherwise 8% burden PVCs. Medications Administered Current Inpatient Medications Acetaminophen (Acetaminophen 500 Mg Tab) 1,000 mg PO TID PRN PRN Reason: Pain Stop: 09/14/24 18:20 Amlodipine Besylate (Amlodipine Besylate 5 Mg Tab) 10 mg PO QAM MARY Stop: 09/16/24 08:59 Aspirin (Aspirin 81 Mg Ectab) 81 mg PO QAM MARY Stop: 09/15/24 08:59 Last Admin: 08/16/24 07:59 Dose: 81 mg Atorvastatin Calcium (Atorvastatin 40 Mg Tab) 40 mg PO PM MARY Stop: 09/14/24 20:59 Last Admin: 08/15/24 20:08 Dose: 40 mg Cyanocobalamin (Cyanocobalamin 1000 Mcg/Ml Vial) 1,000 mcg IM QAM MARY Stop: 08/19/24 08:59 Last Admin: 08/16/24 09:24 Dose: 1,000 mcg Dextrose (Dextrose 50% 50 Ml Syringe) 25 - 50 ml IV UD PRN; Protocol PRN Reason: Hypoglycemia Protocol Stop: 09/14/24 23:54 Empagliflozin (Empagliflozin 10 Mg Tab) 10 mg PO DAILY MARY Stop: 09/15/24 08:59 Last Admin: 08/16/24 07:59 Dose: 10 mg Enoxaparin Sodium (Enoxaparin Inj 40 Mg/0.4 Ml Syr) 40 mg SQ QPM MARY Stop: 09/14/24 21:39 Last Admin: 08/15/24 22:24 Dose: 40 mg Furosemide (Furosemide 40 Mg/4 Ml Vial) 40 mg IV [id number] MARY Stop: 09/15/24 08:59 Last Admin: 08/16/24 07:59 Dose: 40 mg Gabapentin (Gabapentin 300 Mg Cap) 300 mg PO BID MARY Stop: 09/14/24 20:59 Last Admin: 08/16/24 07:59 Dose: 300 mg Glucagon (Glucagon For Inj 1 Mg Vial) 1 mg SQ UD PRN; Protocol PRN Reason: Hypoglycemia Protocol Stop: 09/14/24 23:54 Glucose (Glucose 40% Gel 15 Gm Tube) 15 - 30 gm PO UD PRN; Protocol PRN Reason: Hypoglycemia Protocol Stop: 09/14/24 23:54 Glucose (Glucose 10 Tab/Tube) 4 - 8 tab PO UD PRN; Protocol PRN Reason: Hypoglycemia Protocol Stop: 09/14/24 23:54 Insulin Aspart (Insulin Aspart Per Unit Charge) 0 units SC ACHS [facility] Stop: 09/15/24 07:29 Last Admin: 08/16/24 12:01 Dose: 1 units Lisinopril (Lisinopril 20 Mg Tab) 20 mg PO BID [facility] Stop: 09/14/24 21:44 Last Admin: 08/16/24 07:59 Dose: 20 mg Magnesium Oxide (Magnesium Oxide 400 Mg Tab) 400 mg PO BID [facility] Stop: 09/15/24 08:59 Last Admin: 08/16/24 07:59 Dose: 400 mg Metoprolol Succinate (Metoprolol Succ 25mg Ext Rel Tab) 25 mg PO PM [facility] Stop: 09/14/24 20:59 Last Admin: 08/15/24 20:08 Dose: 25 mg Miscellaneous (Remove Nicoderm Patch) 1 each N/A DAILY@0859 [facility] Stop: 09/15/24 08:58 Last Admin: 08/16/24 09:24 Dose: Not Given Miscellaneous (Carbohydrates For Hypoglycemia ) 15 - 30 gm PO UD PRN PRN Reason: Hypoglycemia Protocol Stop: 09/14/24 23:54 Miscellaneous Information (Pharmacy Glycemic Mgmt Consult) 1 each N/A UD PRN; Protocol PRN Reason: Consult Stop: 09/14/24 23:54 Nicotine (Nicotine 7 Mg/24 Hr Tdsy) 1 patch TD QAM [facility] Stop: 09/15/24 08:59 Last Admin: 08/16/24 08:00 Dose: Not Given Pantoprazole Sodium (Pantoprazole 40 Mg Tab) 40 mg PO QAM [facility] Stop: 09/14/24 19:44 Last Admin: 08/16/24 07:59 Dose: 40 mg Potassium Chloride (Potassium Chloride Crtab 20 Meq Tabcr) 40 meq PO ONCE ONE Stop: 08/16/24 14:01 Simethicone (Simethicone 80 Mg Chew) 80 mg PO QID [facility] Stop: 09/15/24 08:59 Last Admin: 08/16/24 09:24 Dose: 80 mg Vitamin B Complex (Vitamin B Complex Tab) 1 tab PO QAM [facility] Stop: 09/15/24 08:59 PG Care Time/CCT Total # of Minutes Spent Total Time Spent with Patient: Total time spent is greater than 50% in coordination of care (as documented) at patient's floor/unit and/or counseling patient: Coding Level of Care Code 09849 INT INP/OBS CARE 3/75MIN Diagnoses Acute heart failure with mildly reduced ejection fraction (HFmrEF, 41-49%) I50.21 Elevated troponin R79.89 Chest pain R07.9 Cardiomyopathy I42.9 Hyperlipemia E78.5 Hypertension I10 Hypertension type: unspecified Tobacco smoker, 1 pack of cigarettes or less per day F17.210 Mobitz I I44.1 Paroxysmal ventricular tachycardia I47.20 (6) Hypertension Hypertension type: unspecified Qualified Code(s): I10 - Essential (primary) hypertension
[2024-08-16] MEDS: POTASSIUM CHLORIDE CRTAB 20 MEQ TABCR PO ONE (13:25)
[2024-08-16] MEDS: VITAMIN B COMPLEX TAB PO SCH (13:33)
[2024-08-16 15:13] LABS: Appearance Urine Clear (Clear); Bacteria Urine Automated None Seen (None Seen); Bilirubin Urine Negative (Negative); Blood Urine Trace (Negative); Cast Urine Automated 0-2 /lpf (0-2); Color Urine Yellow; Epithelial Cell Urine Auto 0-2 /hpf (0-2); Glucose Urine UA 3+ (Negative); Ketones Urine Negative (Negative); Leukocyte Esterase Urine Negative (Negative); Nitrite Urine Negative (Negative); Protein Urine 2+ (Negative); RBC Urine Automated 0-2 /hpf (0-2); Specific Gravity Urine 1.018 (1.000-1.030); Urobilinogen Urine Negative (Negative); WBC Urine Automated 0-5 /hpf (0-5); pH Urine 6.5 (4.5-7.5)
--- NOTE | 2024-08-16 15:35 | Pharmacy Report ---
Pharmacy Glycemic Short Note 2 - Date of Service August 16, 2024 - Glycemic Short BSG Results (Last 24 hours): 08/15/24 08/15/24 08/16/24 15:00 20:59 06:13 Glucose 138 H 140 H POC Glucose 147 H 08/16/24 08/16/24 07:25 11:25 Glucose POC Glucose 149 H 164 H OUTPATIENT ANTIDIABETIC REGIMEN: * Jardiance 10mg PO daily * Actos 45mg daily * Janumet XR daily * HbA1c 6.9% (08/16/24) ASSESSMENT: * Jung is an 79 YOM admitted with respiratory failure and a history of type 2 diabetes mellitus. Pharmacy has been consulted to assist with glycemic management while inpatient. * Fasting BSG this AM acceptable, will hold basal insulin at this time. * BSGs starting to rise will add carbohydrate ratio at this time to help prevent further rising PLAN FOR INPATIENT GLYCEMIC CONTROL: * Hold outpatient oral diabetes medications * Basal insulin * HOLD * Bolus insulin * NovoLog per scale ACHS or Q6hrs while NPO * Goal Range: Low 110 mg/dL - High 140 mg/dL * Correction Factor: 30 mg/dL/unit * Nutritional / Prandial insulin per carb ratio of 1 unit per 12 grams CHO consumed
--- NOTE | 2024-08-16 17:35 | Electrocardiogram Report ---
Test Reason : Blood Pressure : */* mmHG Vent. Rate : 68 BPM Atrial Rate : 68 BPM P-R Int : 126 ms QRS Dur : 92 ms QT Int : 444 ms P-R-T Axes : 15 -22 -54 degrees QTcB Int : 472 ms Normal sinus rhythm Low voltage QRS Possible Anterior infarct (cited on or before 10-May-2005) T wave abnormality, consider inferior ischemia Abnormal ECG When compared with ECG of 15-Aug-2024 14:59, Premature supraventricular complexes are no longer Present Inverted T waves have replaced nonspecific T wave abnormality in Inferior leads Confirmed by José Miguel Young ([id number]) on 08/16/2024 5:35:41 PM Referred By: REFERRED SELF Confirmed By: José Miguel Young
--- NOTE | 2024-08-16 17:35 | Electrocardiogram Report ---
Test Reason : Blood Pressure : */* mmHG Vent. Rate : 80 BPM Atrial Rate : 80 BPM P-R Int : 176 ms QRS Dur : 90 ms QT Int : 408 ms P-R-T Axes : 53 -34 29 degrees QTcB Int : 470 ms Sinus rhythm with Premature supraventricular complexes Left axis deviation Anterior infarct (cited on or before 10-May-2005) Nonspecific T wave abnormality Abnormal ECG When compared with ECG of 26-Jun-2024 09:52, Premature supraventricular complexes are now Present OH interval has decreased Nonspecific T wave abnormality now evident in Inferior leads QT has lengthened Confirmed by José Miguel Young ([id number]) on 08/16/2024 5:34:58 PM Referred By: Confirmed By: José Miguel Young
[2024-08-16] MEDS: SPIRONOLACTONE 25 MG TAB PO SCH (17:55)
[2024-08-17 01:12] LABS: Total Protein 24 Hour Urine 2559.6 mg/24 Hr (0-149.1); Urine Total Protein 63.2 mg/dl
--- OUTSIDE RECORDS SUMMARY | 2024-08-17 04:58 | External Medical Summary | Continuity of Care Document ---
Author Name Unknown Organization [facility] [id number] Address [address] [place] [phone] Care Team Providers Care Director Of Diagnostic Imaging Name Role Phone Florinda Card Primary Care Physician [phone] Encounter [facility] [id number] Date(s): 08/12/24 - 08/12/24 [facility] [address] [id number] [facility] [address] [place] [id number] Encounter Diagnosis S/P total hip arthroplasty(Discharge Diagnosis) - 08/12/24 Discharge Disposition: Home or Self Care Attending Physician: MD Goldberg Paul K Allergies, Adverse Reactions, Alerts No Known Medication Allergies Assessment and Plan Extracted from: Title:Sigifredo Goldberg Author:Shweta Davis te:08/12/24 Impression: 79 year old male s/p left HIPOLITO; DOS 06/26/24. Plan: - Continue formal PT until discharged. - Advised to take caution when walking outdoors - Reminded of antibiotics prior to dental work - Follow-up on the procedure anniversary with X-Rays, or as needed The patient understood all my instructions and explanation; all their questions were satisfactorily addressed. Medications gabapentin Start: 07/09/24 8:50:00 AM EST, 300 mg =, PO, Daily Start Date: 07/09/24 Status: Ordered Janumet XR 100 mg-1000 mg oral tablet, extended release Start: 07/09/24 8:50:00 AM EST, 1 tab, PO, qPM Start Date: 07/09/24 Status: Ordered Jardiance 25 mg oral tablet Start: 07/09/24 8:50:00 AM EST, 1 tab, PO, Daily, Disp# 30 tab Start Date: 07/09/24 Status: Ordered lactulose Start: 07/09/24 8:50:00 AM EST, 30 g =, PO, Daily Start Date: 07/09/24 Status: Ordered lisinopril Start: 07/09/24 8:51:00 AM EST, 20 mg =, PO, Daily Start Date: 07/09/24 Status: Ordered metoprolol succinate (ER) Start: 07/09/24 8:51:00 AM EST, 25 mg =, PO, Daily Start Date: 07/09/24 Status: Ordered MiraLax Start: 07/09/24 8:51:00 AM EST Start Date: 07/09/24 Status: Ordered Nicoderm C-Q Start: 07/09/24 8:51:00 AM EST Start Date: 07/09/24 Status: Ordered pantoprazole Start: 07/09/24 8:52:00 AM EST, 20 mg =, PO, Daily Start Date: 07/09/24 Status: Ordered pioglitazone Start: 07/09/24 8:52:00 AM EST, 45 mg =, PO, Daily Start Date: 07/09/24 Status: Ordered Potassium Chloride (Shg-Euau-Sqd 10) 10 mEq oral tablet, extended release Start: 08/12/24 10:12:00 AM EST Start Date: 08/12/24 Status: Ordered TriCor Start: 07/09/24 8:52:00 AM EST, 48 mg =, PO, Daily Start Date: 07/09/24 Status: Ordered Tylenol Start: 07/09/24 8:53:00 AM EST, PRN Start Date: 07/09/24 Status: Ordered Vitamin D3 Start: 07/09/24 8:49:00 AM EST, 1000 UT, PO, Daily Start Date: 07/09/24 Status: Ordered Mental Status 08/12/24 Barriers to Learning one year None evide nt Mandatory Health Literacy Documentation Yes Health Literacy Communication Barriers N ever Primary Language Telugu Problem List Condition Confirmation Course Effective Dates Status Health St atus Informant Hip fracture, left Confirmed Active Diagnosis Diagnosis Type Effective Dates Health Status Clinical Service Informant S/P total hip arthroplasty Discharge Diagnosis 08/12/24 Social History Social History Type Response Smoking Status Current every day li ght smoker Sex Sex Representation Male (finding) Ortho Outpt Note * Shweta Davis: PERFORM, MODIFY Event Display: Ortho Outpt Note Authored Date: [id number] Primary Care Provider MD Kyaw, Florinda Longoria Chief Complaint f/u L hipolito History of Present Illness Shima Hwang presents today with his daughterforf/u left HIPOLITO; DOS 06/26/24. He ambulates with a cane. Patient continues going to formal PT. He states he feels improved despite a recent constant itching in the area. His daughter notes he has been having digestion issues and believes that the medication he takes could cause dehydration, and therefore the itchiness. He hashis first appointment scheduled 09/2024 as he has not had a firm bowel movement since06/2024. His daughter notes his bilateral lower extremities have been swelling greatly. Review of Systems A 14 point review of systems isavailable in the EMR. Physical Exam Focusing on the patient's LEFT lower extremity: Sensation intact to light touch L3 to S1 dermatomes Incision is well-healed with mild swelling around wound. Small scab to most proximal aspect of wound, no signs of infection Pitting edema Diagnostic Results [facility] show hardware in good position with no evidence of complication. Assessment/Plan Impression: 79 year old male s/p left HIPOLITO; DOS 06/26/24. Plan: - Continue formal PT until discharged. - Advised to take caution when walking outdoors - Reminded of antibiotics prior to dental work - Follow-up on the procedure anniversary with X-Rays, or as needed The patient understood all my instructions and explanation; all their questions were satisfactorilyaddressed. Attestation I,Shweta Davis,scribing for and in the presence of, Sigifredo Goldberg, on this date,08/12/2024 10:53:01. Problem List/Past Medical History Ongoing Hip fracture, left Medications acetaminophen(Tylenol) cholecalciferol(Vitamin D3), 1000 UT, PO, Daily empagliflozin(Jardiance 25 mg oral tablet), 25 mg= 1 tab, PO, Daily fenofibrate(TriCor), 48 mg, PO, Daily gabapentin, 300 mg, PO, Daily lactulose, 30 g, PO, Daily lisinopril, 20 mg, PO, Daily metformin-sitagliptin(Janumet XR 100 mg-1000 mg oral tablet, extended release), 1 tab, PO, qPM metoprolol(metoprolol succinate (ER)), 25 mg, PO, Daily nicotine(Nicoderm C-Q) oxyCODONE, 5 mg pantoprazole, 20 mg, PO, Daily pioglitazone, 45 mg, PO, Daily polyethylene glycol 3350(MiraLax) Allergies No Known Medication Allergies Social History Smoking Status Former Smoker, quit within 31 days - 1 yr Recommendations Health Maintenance Pending(in the next year) OverDue Adult Influenza Vaccine due03/02/24and every 1year Due Adult COVID-19 Vaccination due08/12/24Unknown Frequency Adult Social Determinants of Health Screening due08/12/24Unknown Frequency Adult Tdap/Td Vaccine due08/12/24Unknown Frequency Body Mass Index due08/12/24Unknown Frequency Lipid Screening due08/12/24Unknown Frequency Medicare Annual Wellness Visit due08/12/24and every 1year Pneumococcal Vaccine Older Adults due08/12/24One-time only Shingles Vaccine due08/12/24One-time only Satisfied(in the past 1 year) There are no satisfied recommendations within the defined date range Electronic Signature on File Electronically Reviewed/Signed by: Shweta Davis Author Signature Dt/Tm:08/12/2024 10:54 AM Electronically Reviewed/Signed by: Sigifredo Goldberg MD Cosigner Signature Dt/Tm: 08/13/2024 12:39PM Division of Sports Medicine MR Patient Care team information Care Team Personnel Name: MD Card Hallie Jeanne Position: Referring Member Role: Primary Care Provider Address: [address]
[2024-08-17 06:16] LABS: Hematocrit (blood only) 35.8 % (42.0-52.0); Hemoglobin 11.5 g/dl (14.0-18.0); Mean Corpuscular Hgb Conc 32.1 g/dL (32.0-36.0); Mean Corpuscular Volume 96.5 fL (80.0-100.0); Mean Platelet Volume 10.2 fL (9.4-12.4); Platelet Count 325 K/uL (130-400); RDW Coefficient of Variation 13.8 % (11.5-14.5); RDW Standard Deviation 49.3 fL (36.4-46.3); Red Blood Count 3.71 M/uL (4.70-6.10); White Blood Count 7.33 K/ul (4.8-10.8)
[2024-08-17 06:34] LABS: BUN Creatinine Ratio 10.9 (10-20); Calcium 8.6 mg/dl (8.6-10.3); Creatinine Clr Calc Pharmacy 76.7 ml/min; Magnesium 1.8 mg/dl (1.7-2.4); Potassium 3.4 mmol/L (3.5-5.1)
[2024-08-17] MEDS: POTASSIUM CHLORIDE CRTAB 20 MEQ TABCR PO STA (08:01)
[2024-08-17] MEDS: MAGNESIUM SULFATE / D5W 1 GM/100 ML BAG IV SCH (08:02)
[2024-08-17] MEDS: amLODIPine BESYLATE 5 MG TAB PO SCH (08:06)
--- NOTE | 2024-08-17 10:38 | Nephrology Progress Note ---
Date of Service August 17, 2024 Assessment & Plan (1) Nephrotic range proteinuria: (2) Hypokalemia: (3) Hypomagnesemia: (4) Acute respiratory failure with hypoxia: (5) Elevated troponin I level: (6) Diabetes: (7) Hypertension: Plan 79-year-old gentleman with history of hypertension, diabetes, smoking admitted to the hospital with generalized weakness and weight gain of 15 pounds over last 1 month. Has normal kidney function, creatinine was 0.9 mg/dl although he did have an episode of CHRISTIAN in June when admitted for fall and femur fracture, creatinine was 1.9 mg/dl which rapidly improved. Urinalysis at that time also showed 3+ proteinuria similar to what we are seeing now, spot urine protein creatinine ratio was 6.2. Imaging showed solitary right kidney possibly congenital. Proteinuria 2.6 g on 24-hour urine with normal kidney function could be secondary to hypertension, diabetes and smoking however cannot exclude possibility for secondary FSGS, membranous nephropathy or paraproteinemia considering advanced age, pending paraproteinemia workup, PLA2R, ROSIE and complements. -- Continue on lisinopril 20 mg twice a day -- Okay to continue on IV Lasix today but consider changing to p.o. starting tomorrow if remains significantly net negative. -- Low-salt diet -- replace electrolyte while on IV diuretics. Admission and Anticipated Discharge Date Admission Date: August 15, 2024 Nora Feng was seen and evaluated this morning. He reports still having some shortness of breath while lying flat but overall feeling better. Significant urine output with current dose of diuretics and net negative. Kidney function, electrolytes acceptable. Blood pressure variable but overall improved. Review of Systems Review of Systems: Review of system was done and pertinent positives and negatives are mentioned above. Physical Exam Constitutional: WD/WN, vitals as above no acute distress Eyes: + anicteric sclerae Respiratory: no respiratory distress Auscultation: lungs clear to auscultation bilaterally; no crackles and no wheezes Cardiovascular: Rate/Rhythm: regular rate and regular rhythm Heart Sounds: normal S1 and normal S2 Extremities: + edema Musculoskeletal: Extremities: extremities normal to inspection Skin: no rashes, warm and dry Neurologic: no focal motor deficits Psychiatric: Orientation: alert and oriented x 3 Affect: euthymic affect Results & Data Vital Signs (Past 12 Hours) Vital Signs Temp Pulse Pulse Resp BP BP Pulse Ox 08/17/24 08:00 64 08/17/24 08:00 08/17/24 07:30 36.5 C 72 19 163/82 H 94 08/17/24 03:51 36.9 C 64 18 150/69 H 91 08/16/24 23:09 36.7 C 67 16 170/65 H 95 O2 Del Method O2 Flow Rate 08/17/24 08:00 08/17/24 08:00 Room Air 08/17/24 07:30 Room Air 08/17/24 03:51 Room Air 08/16/24 23:09 Nasal Cannula 2.0 PG Care Time/CCT Total # of Minutes Spent Total Time Spent with Patient: Total time spent is greater than 50% in coordination of care (as documented) at patient's floor/unit and/or counseling patient: Coding Level of Care Code 73328 SUB INP/OBS CARE 2/35MIN Diagnoses Nephrotic range proteinuria R80.9 Hypokalemia E87.6 Hypomagnesemia E83.42 Acute respiratory failure with hypoxia J96.01 Elevated troponin I level R79.89 Diabetes E11.9 Hypertension I10 Hypertension type: unspecified (7) Hypertension Hypertension type: unspecified Qualified Code(s): I10 - Essential (primary) hypertension
--- NOTE | 2024-08-17 11:01 | Hospitalist Progress Note ---
Date of Service August 17, 2024 Assessment & Plan (1) Acute respiratory failure with hypoxia: (2) Acute CHF: (3) Elevated troponin: (4) History of CVA (cerebrovascular accident): (5) Hypertension: (6) Hyperlipemia: (7) Abnormal Holter monitor finding: (8) Type 2 diabetes mellitus: (9) Tobacco smoker, 1 pack of cigarettes or less per day: (10) Ileus: (11) B12 deficiency: Plan 79-year-old male with past medical history of CVA in 1988, history of recent left hip arthroplasty for left hip fracture on June 27, 2024, ongoing ileus issues, type 2 diabetes mellitus with neuropathy, essential hypertension, hyperlipidemia, patient with solitary kidney with the recent outpatient abnormal Holter monitor results presents with 3-day history of worsening shortness of breath and orthopnea #Acute hypoxic respiratory failure Likely from congestive heart failure BNP is elevated 1278 Chest x-ray and CTA showed pulmonary edema and no evidence of PE noted Procalcitonin is 0.02: Patient is afebrile, no elevated white count and no cough #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 Moderate concentric LVH. Mild mitral regurgitation, type II diastolic dysfunction BNP is improving Continue Lasix 40 mg IV twice daily I/O monitoring Daily weights Continue aspirin plus statin Amlodipine has been increased from 5 to 10 mg daily by nephrology for better blood pressure control Cardiology has switched lisinopril to Entresto Continue Toprol-XL 25 mg daily Continue Jardiance 10 mg p.o. daily Outpatient Holter monitor: HR 31-112 with Mobitz type 1 block on holter: Cardiology has recommended continuing beta-lui for now, no need for pacemaker Continue telemetry monitoring Cardiology is planning on doing a cardiac cath tomorrow #Single solitary kidney #Proteinuria #Hypokalemia #Hypomagnesemia Nephrology has been consulted 24-hour urine collection: Results pending Monitor renal function while patient on IV Lasix Replace electrolytes and monitor Avoid nephrotoxic agents including NSAIDs Nephrology Dr. Nassar saw the patient in consultation Nephrology has sent ROSIE screen, complements SPEP and UPEP: Results pending Await nephrology follow-up and recommendations #Type 2 diabetes mellitus with neuropathy A1c 6.9 Continue Jardiance Accu-Cheks before every meal and nightly with sliding scale insulin coverage Pharmacy managing glycemic management #Chronic colonic ileus Patient passing gas, reports no abdominal pain, nausea or vomiting Tolerating oral diet Monitor #Tobacco use disorder Smoking cessation counseling provided Continue to nicotine replacement patch #Vitamin B12 deficiency B12 level is 115 Continue vitamin B12 supplementation CODE STATUS: DNR/DNI DVT prophylaxis: Lovenox 40 mg subcutaneous daily Care plan discussed with patient, nursing staff and daughter Jaleel updated on the phone Admission and Anticipated Discharge Date Admission Date: August 15, 2024 Subjective Patient seen and examined Labs reviewed Telemetry reviewed Echo reviewed Patient sitting in a chair, feels much better. Reports improvement in his shortness of breath. Denies any chest pain, fever or productive cough Denies any nausea, vomiting, diarrhea, abdominal pain Denies any urinary symptoms Physical Exam Physical Exam: General: No acute distress Psych: Awake and alert HEENT: Anicteric sclera, moist oral mucosa CVS: Regular rate and rhythm Lungs: Bilateral air entry, no wheezing noted Abdomen: Soft, nontender, no rebound, no guarding Ext: 2+ pitting edema, no calf tenderness Neuro: No focal motor deficits noted Results & Data Results & Data Vital Signs (Past 12 Hours) Vital Signs Temp Pulse Pulse Resp BP BP Pulse Ox 08/17/24 08:00 64 08/17/24 08:00 08/17/24 07:30 36.5 C 72 19 163/82 H 94 08/17/24 03:51 36.9 C 64 18 150/69 H 91 08/16/24 23:09 36.7 C 67 16 170/65 H 95 O2 Del Method O2 Flow Rate 08/17/24 08:00 08/17/24 08:00 Room Air 08/17/24 07:30 Room Air 08/17/24 03:51 Room Air 08/16/24 23:09 Nasal Cannula 2.0 Laboratory Results Laboratory Results - last 24 hr 08/16/24 08/16/24 08/16/24 00:49 11:25 14:27 WBC RBC Hgb Hct MCV MCH MCHC RDW Std Deviation RDW Coeff of Dhaval Plt Count MPV Sodium Potassium Chloride Carbon Dioxide Anion Gap BUN Creatinine Est Cr Clr Drug Dosing eGFR BUN/Creatinine Ratio Glucose POC Glucose 164 H Calcium Magnesium B-Natriuretic Peptide Total Protein (PEP) Albumin (PEP) Ohbwr-4-Inekqcvxw Roowi-2-Zxhoybcqh Zopo-8-Szmahngo Qarq-8-Ofpqbbsa Gamma Globulins Monoclonal Peak 3 Ser Monoclonl Protein Ser Monoclonal Prot 2 PEP Interpretation Urine Color Urine Appearance Urine pH Ur Specific [place] Urine Protein Urine Glucose (UA) Urine Ketones Urine Blood Urine Nitrite Urine Bilirubin Urine Urobilinogen Ur Leukocyte Esterase Urine WBC (Auto) Urine RBC (Auto) U Hyaline Cast (Auto) U Epithel Cells (Auto) Urine Bacteria (Auto) U Random Total Protein Urine Total Volume 4050 Ur Creatinine mg/dL Ur Total Protein 24 Hr 2559.6 H Protein/Creatinin Ratio Urine Total Protein 63.2 Urine Albumin (%) U Ftkiy-2-Poumsrld (%) U Gdkqs-7-Fpibwejv (%) U Beta Globulin (%) U Gamma Globulin (%) U Abnormal Prot Band 1 U Abnormal Prot Band 2 U Abnormal Prot Band 3 Urine PEP Interpret ROSIE Screen Pending Complement C3 Pending Complement C4 Pending Free [place] LC, Quant Pending Free Lambda LC, Quant Pending Free [place]/Lambda Ratio Pending Phospholip A2 Rec IFA Pending Phospholip A2 Rec ERINN Pending 08/16/24 08/16/24 08/16/24 15:00 16:19 20:25 WBC RBC Hgb Hct MCV MCH MCHC RDW Std Deviation RDW Coeff of Dhaval Plt Count MPV Sodium Potassium Chloride Carbon Dioxide Anion Gap BUN Creatinine Est Cr Clr Drug Dosing eGFR BUN/Creatinine Ratio Glucose POC Glucose 143 H 129 H Calcium Magnesium B-Natriuretic Peptide Total Protein (PEP) Albumin (PEP) Kwrhq-2-Ubmkqiqfp Fyefs-1-Pmxesewdk Kukq-0-Nltbcrni Mvje-0-Fjpfbjdu Gamma Globulins Monoclonal Peak 3 Ser Monoclonl Protein Ser Monoclonal Prot 2 PEP Interpretation Urine Color Yellow Urine Appearance Clear Urine pH 6.5 Ur Specific [place] 1.018 Urine Protein 2+ H Urine Glucose (UA) 3+ H Urine Ketones Negative Urine Blood Trace H Urine Nitrite Negative Urine Bilirubin Negative Urine Urobilinogen Negative Ur Leukocyte Esterase Negative Urine WBC (Auto) 0-5 Urine RBC (Auto) 0-2 U Hyaline Cast (Auto) 0-2 U Epithel Cells (Auto) 0-2 Urine Bacteria (Auto) None Seen U Random Total Protein Pending Urine Total Volume Ur Creatinine mg/dL Pending Ur Total Protein 24 Hr Protein/Creatinin Ratio Pending Urine Total Protein Urine Albumin (%) Pending U Qquod-8-Ukfapjix (%) Pending U Ypuzc-0-Rsgguqwv (%) Pending U Beta Globulin (%) Pending U Gamma Globulin (%) Pending U Abnormal Prot Band 1 Pending U Abnormal Prot Band 2 Pending U Abnormal Prot Band 3 Pending Urine PEP Interpret Pending ROSIE Screen Complement C3 Complement C4 Free [place] LC, Quant Free Lambda LC, Quant Free [place]/Lambda Ratio Phospholip A2 Rec IFA Phospholip A2 Rec ERINN 08/17/24 08/17/24 05:48 07:19 WBC 7.33 RBC 3.71 L Hgb 11.5 L Hct 35.8 L MCV 96.5 MCH 31.0 MCHC 32.1 RDW Std Deviation 49.3 H RDW Coeff of Dhaval 13.8 Plt Count 325 MPV 10.2 Sodium 143 Potassium 3.4 L Chloride 104 Carbon Dioxide 29 Anion Gap 10 BUN 10 Creatinine 0.92 Est Cr Clr Drug Dosing 76.7 eGFR 84.09 BUN/Creatinine Ratio 10.9 Glucose 113 H POC Glucose 124 H Calcium 8.6 Magnesium 1.8 B-Natriuretic Peptide 911 H Total Protein (PEP) Pending Albumin (PEP) Pending Znhqi-3-Qvkwndejd Pending Jclbh-5-Xdlepefde Pending Undd-5-Stvktmms Pending Bjnv-2-Vzniuujl Pending Gamma Globulins Pending Monoclonal Peak 3 Pending Ser Monoclonl Protein Pending Ser Monoclonal Prot 2 Pending PEP Interpretation Pending Urine Color Urine Appearance Urine pH Ur Specific [place] Urine Protein Urine Glucose (UA) Urine Ketones Urine Blood Urine Nitrite Urine Bilirubin Urine Urobilinogen Ur Leukocyte Esterase Urine WBC (Auto) Urine RBC (Auto) U Hyaline Cast (Auto) U Epithel Cells (Auto) Urine Bacteria (Auto) U Random Total Protein Urine Total Volume Ur Creatinine mg/dL Ur Total Protein 24 Hr Protein/Creatinin Ratio Urine Total Protein Urine Albumin (%) U Nemol-5-Gzljxirj (%) U Fbszl-4-Dqzcscdc (%) U Beta Globulin (%) U Gamma Globulin (%) U Abnormal Prot Band 1 U Abnormal Prot Band 2 U Abnormal Prot Band 3 Urine PEP Interpret ROSIE Screen Complement C3 Complement C4 Free [place] LC, Quant Free Lambda LC, Quant Free [place]/Lambda Ratio Phospholip A2 Rec IFA Phospholip A2 Rec ERINN Diagnostic Findings Chest X-Ray 12/14/24 10:41 XR chest 2V PA/lateral CLINICAL HISTORY: chf vs pna COMPARISON STUDY: Chest radiograph and chest CT August 15, 2024. FINDINGS: There is no pneumothorax. Moderate right and small left pleural effusions with associated bibasilar opacities are again noted. There is cardiomegaly with persistent pulmonary edema. IMPRESSION: 1. Cardiomegaly with persistent pulmonary edema. 2. Moderate right and small left pleural effusions with associated bibasilar opacities which could reflect atelectasis or pneumonia. ACT 112: Negative or not required by law. Electronically signed by: Tomy Valdez M.D. 08/16/2024 11:46 AM PG Care Time/CCT Total # of Minutes Spent Total Time Spent with Patient: Total time spent is greater than 50% in coordination of care (as documented) at patient's floor/unit and/or counseling patient: Coding Level of Care Code 64405 SUB INP/OBS CARE 3/50MIN Diagnoses Acute respiratory failure with hypoxia J96.01 Acute CHF I50.9 Elevated troponin R79.89 History of CVA (cerebrovascular accident) Z86.73 Hypertension I10 Hypertension type: unspecified Hyperlipemia E78.5 Abnormal Holter monitor finding R94.31 Type 2 diabetes mellitus E11.9 Tobacco smoker, 1 pack of cigarettes or less per day F17.210 Ileus K56.7 B12 deficiency E53.8 (5) Hypertension Hypertension type: unspecified Qualified Code(s): I10 - Essential (primary) hypertension
--- NOTE | 2024-08-17 15:57 | Cardiology Progress Note ---
Date of Service August 17, 2024 Assessment & Plan (1) Acute heart failure with mildly reduced ejection fraction (HFmrEF, 41-49%): (2) Elevated troponin: (3) Chest pain: (4) Cardiomyopathy: (5) Hyperlipemia: (6) Hypertension: (7) Tobacco smoker, 1 pack of cigarettes or less per day: (8) Mobitz I: (9) Paroxysmal ventricular tachycardia: Plan ASSESSMENT/PLAN: 1. Acute heart failure with mildly reduced EF: Although improved, he still remains hypervolemic. Continue diuretic with goal of approximately 1-2 L net negative fluid balance per day. Low-sodium diet, less than 2000 mg daily. Strict I's and O's. Daily weights. Entresto beginning tonight, 36 hours after most recent RADHIKA inhibitor dose. Renal lactone initiated this hospital stay. Continue low-dose metoprolol succinate. Continue SGLT2 inhibitor. 2. Cardiomyopathy: Reduced LV systolic function with regional wall motion abnormality. Given presentation of acute heart failure, elevated troponins, and chest discomfort, recommend cardiac catheterization nonurgently. Risk and benefits were discussed with him. He was agreeable to proceed. He was made aware that CT surgery is not available at this facility. Anticipate cardiac catheterization at the beginning of the week after further diuresis. This was also discussed with his daughter, Jaleel Ga who is a nurse. She was agreeable. 3. Elevated troponin: Multiple risk factors for CAD. Had chest discomfort, although he describes this as acid reflux, which is possible, presentation concerning for ischemic heart disease as well. Cardiac catheterization as above. 4. Chest pain: As above. 5. Dyslipidemia: Continue high intensity statin therapy. LDL well-controlled. 6. Hypertension: Blood pressure has been elevated. Continue diuresis. Spironolactone has been initiated. Entresto first dose begins this evening. Will continue to titrate GDMT for heart failure. 7. Mobitz 1: Continue low-dose beta-lui. No symptoms to suggest significant pause/bradycardia. No indication for pacemaker at this time. 8. Nonsustained ventricular tachycardia: Reported on outside Holter from 08/07/2024. Continue beta-lui. Continue telemetry. 9. Tobacco abuse: Recommended that he stop smoking. 10. Disposition: Cardiology will continue to follow. Plan of care communicated with primary hospitalist, Dr. San. Plan of care discussed with his daughter, Jaleel Ga RN, via telephone. Patient granted permission to call her. Heart failure program. He would like to follow in the [facility] office. Will arrange for follow-up with Dr. Reddy at [facility] cardiology [facility] office. Admission and Anticipated Discharge Date Admission Date: August 15, 2024 Subjective Patient seen this morning. He had some chest tightness intermittently while laying in bed. It has since resolved. He was sitting in a chair at the bedside. He denies shortness of breath, syncope, near syncope, palpitations. He believes that his edema is improving. He was alone in his hospital room. Physical Exam Physical Exam: Gen.: No acute distress. Alert and oriented. HEENT: Anicteric sclera. Neck: No JVD sitting upright. Hepatojugular reflux noted. Cardiac: Regular with ectopy. Normal S1-S2. No murmurs, rubs, or gallops. Pulmonary: Decreased breath sounds at the bases, but otherwise clear to auscultation bilaterally without wheezes, rales, or rhonchi. Abdomen: Soft, nontender, nondistended, with normoactive bowel sounds. No bruits noted. Extremities: 2+ radial pulses bilaterally. 2+ posterior tibialis pulses bilaterally. 2+ bilateral lower extremity edema nearly to the knees. No cyanosis. Results & Data Vital Signs (Past 12 Hours) Vital Signs Temp Pulse Pulse Resp BP Pulse Ox O2 Del Method 08/17/24 15:21 36.5 C 68 18 152/76 H 94 Room Air 08/17/24 12:06 36.6 C 65 18 143/65 H 95 Room Air 08/17/24 08:00 64 08/17/24 08:00 Room Air 08/17/24 07:30 36.5 C 72 19 163/82 H 94 Room Air Intake & Output 08/15/24 08/16/24 08/17/24 08/18/24 06:59 06:59 06:59 06:59 Intake Total 500.000 / 889.579 5556 / 1270 996.667 / 996.667 Output Total 1450 / 1450 3275 / 3275 1776 / 1776 Balance -950.000 / -950.000 -2004 / -2004 -779.333 / -779.333 Weight 217 lb 9.54 oz 205 lb 0.478 oz Laboratory Results Laboratory Results - last 24 hr 08/16/24 08/16/24 08/16/24 00:49 14:27 16:19 WBC RBC Hgb Hct MCV MCH MCHC RDW Std Deviation RDW Coeff of Dhavla Plt Count MPV Sodium Potassium Chloride Carbon Dioxide Anion Gap BUN Creatinine Est Cr Clr Drug Dosing eGFR BUN/Creatinine Ratio Glucose POC Glucose 143 H Calcium Magnesium B-Natriuretic Peptide Total Protein (PEP) Albumin (PEP) Iancr-4-Cwnvhlnlf Tamqx-1-Mganxzlcp Paya-8-Gtixvxti Piak-7-Nzwfqsel Gamma Globulins Monoclonal Peak 3 Ser Monoclonl Protein Ser Monoclonal Prot 2 PEP Interpretation Urine Total Volume 4050 Ur Total Protein 24 Hr 2559.6 H Urine Total Protein 63.2 Phospholip A2 Rec IFA Pending Phospholip A2 Rec ERINN Pending 08/16/24 08/17/24 08/17/24 20:25 05:48 07:19 WBC 7.33 RBC 3.71 L Hgb 11.5 L Hct 35.8 L MCV 96.5 MCH 31.0 MCHC 32.1 RDW Std Deviation 49.3 H RDW Coeff of Dhaval 13.8 Plt Count 325 MPV 10.2 Sodium 143 Potassium 3.4 L Chloride 104 Carbon Dioxide 29 Anion Gap 10 BUN 10 Creatinine 0.92 Est Cr Clr Drug Dosing 76.7 eGFR 84.09 BUN/Creatinine Ratio 10.9 Glucose 113 H POC Glucose 129 H 124 H Calcium 8.6 Magnesium 1.8 B-Natriuretic Peptide 911 H Total Protein (PEP) Pending Albumin (PEP) Pending Iqbov-9-Kxvgaxvzw Pending Upmgs-1-Qgsfuysgy Pending Zyds-9-Ifbsxiok Pending Ulak-2-Hjzlfzgw Pending Gamma Globulins Pending Monoclonal Peak 3 Pending Ser Monoclonl Protein Pending Ser Monoclonal Prot 2 Pending PEP Interpretation Pending Urine Total Volume Ur Total Protein 24 Hr Urine Total Protein Phospholip A2 Rec IFA Phospholip A2 Rec ERINN 08/17/24 11:19 WBC RBC Hgb Hct MCV MCH MCHC RDW Std Deviation RDW Coeff of Dhaval Plt Count MPV Sodium Potassium Chloride Carbon Dioxide Anion Gap BUN Creatinine Est Cr Clr Drug Dosing eGFR BUN/Creatinine Ratio Glucose POC Glucose 132 H Calcium Magnesium B-Natriuretic Peptide Total Protein (PEP) Albumin (PEP) Jhbjr-0-Nlomcewnr Fkhez-8-Sfcjzqwnr Ztpy-2-Orqibmia Kaxl-7-Jlkzaise Gamma Globulins Monoclonal Peak 3 Ser Monoclonl Protein Ser Monoclonal Prot 2 PEP Interpretation Urine Total Volume Ur Total Protein 24 Hr Urine Total Protein Phospholip A2 Rec IFA Phospholip A2 Rec ERINN Diagnostic Findings Telemetry personally reviewed: Sinus rhythm. No definite arrhythmia. There was an episode of what appears to be artifact since yesterday's visit. Urine culture 08/15/2024: Staff epidermidis. Labs reviewed from 08/17/2024 notable for improved hypokalemia, stable renal function, anemia. Nephrology note reviewed. Medications Administered Current Inpatient Medications Acetaminophen (Acetaminophen 500 Mg Tab) 1,000 mg PO TID PRN PRN Reason: Pain Stop: 09/14/24 18:20 Amlodipine Besylate (Amlodipine Besylate 5 Mg Tab) 10 mg PO QAM [facility] Stop: 09/16/24 08:59 Last Admin: 08/17/24 08:06 Dose: 10 mg Aspirin (Aspirin 81 Mg Ectab) 81 mg PO QAM MARY Stop: 09/15/24 08:59 Last Admin: 08/17/24 08:05 Dose: 81 mg Atorvastatin Calcium (Atorvastatin 40 Mg Tab) 40 mg PO PM MARY Stop: 09/14/24 20:59 Last Admin: 08/16/24 20:13 Dose: 40 mg Cyanocobalamin (Cyanocobalamin 1000 Mcg/Ml Vial) 1,000 mcg IM QAM MARY Stop: 08/19/24 08:59 Last Admin: 08/17/24 08:06 Dose: 1,000 mcg Dextrose (Dextrose 50% 50 Ml Syringe) 25 - 50 ml IV UD PRN; Protocol PRN Reason: Hypoglycemia Protocol Stop: 09/14/24 23:54 Empagliflozin (Empagliflozin 10 Mg Tab) 10 mg PO DAILY MARY Stop: 09/15/24 08:59 Last Admin: 08/17/24 08:05 Dose: 10 mg Enoxaparin Sodium (Enoxaparin Inj 40 Mg/0.4 Ml Syr) 40 mg SQ QPM MARY Stop: 09/14/24 21:39 Last Admin: 08/16/24 20:12 Dose: 40 mg Furosemide (Furosemide 40 Mg/4 Ml Vial) 40 mg IV BID17 MARY Stop: 09/15/24 08:59 Last Admin: 08/17/24 08:06 Dose: 40 mg Gabapentin (Gabapentin 300 Mg Cap) 300 mg PO BID MARY Stop: 09/14/24 20:59 Last Admin: 08/17/24 08:05 Dose: 300 mg Glucagon (Glucagon For Inj 1 Mg Vial) 1 mg SQ UD PRN; Protocol PRN Reason: Hypoglycemia Protocol Stop: 09/14/24 23:54 Glucose (Glucose 40% Gel 15 Gm Tube) 15 - 30 gm PO UD PRN; Protocol PRN Reason: Hypoglycemia Protocol Stop: 09/14/24 23:54 Glucose (Glucose 10 Tab/Tube) 4 - 8 tab PO UD PRN; Protocol PRN Reason: Hypoglycemia Protocol Stop: 09/14/24 23:54 Insulin Aspart (Insulin Aspart Per Unit Charge) 0 units SC ACHS [facility] Stop: 09/15/24 07:29 Last Admin: 08/17/24 12:04 Dose: 4 units Magnesium Oxide (Magnesium Oxide 400 Mg Tab) 400 mg PO BID [facility] Stop: 09/15/24 08:59 Last Admin: 08/17/24 08:05 Dose: 400 mg Melatonin (Melatonin 3 Mg Tab) 3 mg PO HS PRN PRN Reason: Sleep Stop: 09/16/24 11:26 Metoprolol Succinate (Metoprolol Succ 25mg Ext Rel Tab) 25 mg PO PM [facility] Stop: 09/14/24 20:59 Last Admin: 08/16/24 20:14 Dose: 25 mg Miscellaneous (Remove Nicoderm Patch) 1 each N/A DAILY@0859 [facility] Stop: 09/15/24 08:58 Last Admin: 08/17/24 08:02 Dose: Not Given Miscellaneous (Carbohydrates For Hypoglycemia ) 15 - 30 gm PO UD PRN PRN Reason: Hypoglycemia Protocol Stop: 09/14/24 23:54 Miscellaneous Information (Pharmacy Glycemic Mgmt Consult) 1 each N/A UD PRN; Protocol PRN Reason: Consult Stop: 09/14/24 23:54 Nicotine (Nicotine 7 Mg/24 Hr Tdsy) 1 patch TD QAM [facility] Stop: 09/15/24 08:59 Last Admin: 08/17/24 08:06 Dose: Not Given Pantoprazole Sodium (Pantoprazole 40 Mg Tab) 40 mg PO QAM [facility] Stop: 09/14/24 19:44 Last Admin: 08/17/24 08:05 Dose: 40 mg Sacubitril/Valsartan (Valsartan/Sacubitril 26/24mg Tab) 1 tab PO BID [facility] Stop: 09/16/24 20:59 Simethicone (Simethicone 80 Mg Chew) 80 mg PO QID [facility] Stop: 09/15/24 08:59 Last Admin: 08/17/24 12:07 Dose: 80 mg Spironolactone (Spironolactone 25 Mg Tab) 25 mg PO QAM [facility] Stop: 09/15/24 16:44 Last Admin: 08/17/24 08:05 Dose: 25 mg Vitamin B Complex (Vitamin B Complex Tab) 1 tab PO QAM [facility] Stop: 09/15/24 08:59 Last Admin: 08/17/24 08:05 Dose: 1 tab PG Care Time/CCT Total # of Minutes Spent Total Time Spent with Patient: Total time spent is greater than 50% in coordination of care (as documented) at patient's floor/unit and/or counseling patient: Coding Level of Care Code 65726 SUB INP/OBS CARE 3/50MIN Diagnoses Acute heart failure with mildly reduced ejection fraction (HFmrEF, 41-49%) I50.21 Elevated troponin R79.89 Chest pain R07.9 Cardiomyopathy I42.9 Hyperlipemia E78.5 Hypertension I10 Hypertension type: unspecified Tobacco smoker, 1 pack of cigarettes or less per day F17.210 Mobitz I I44.1 Paroxysmal ventricular tachycardia I47.20 (6) Hypertension Hypertension type: unspecified Qualified Code(s): I10 - Essential (primary) hypertension
[2024-08-17] MEDS: POTASSIUM CHLORIDE CRTAB 20 MEQ TABCR PO ONE (16:07)
[2024-08-17] MEDS: MELATONIN 3 MG TAB PO PRN (20:22)
[2024-08-17] MEDS: VALSARTAN/SACUBITRIL 26/24MG TAB PO SCH (20:28)
[2024-08-17] MEDS: MELATONIN 3 MG TAB PO ONE (23:44)
[2024-08-18 08:01] LABS: Hematocrit (blood only) 37.3 % (42.0-52.0); Hemoglobin 12.2 g/dl (14.0-18.0); Mean Corpuscular Hemoglobin 31.4 pg (25.0-34.0); Mean Corpuscular Hgb Conc 32.7 g/dL (32.0-36.0); Mean Corpuscular Volume 95.9 fL (80.0-100.0); Platelet Count 365 K/uL (130-400); RDW Coefficient of Variation 13.5 % (11.5-14.5); RDW Standard Deviation 47.9 fL (36.4-46.3); Red Blood Count 3.89 M/uL (4.70-6.10); White Blood Count 6.13 K/ul (4.8-10.8)
[2024-08-18 08:22] LABS: BUN Creatinine Ratio 10.1 (10-20); Calcium 8.9 mg/dl (8.6-10.3); Creatinine Clr Calc Pharmacy 68.8 ml/min; Magnesium 1.7 mg/dl (1.7-2.4); Potassium 3.6 mmol/L (3.5-5.1)
--- NOTE | 2024-08-18 08:27 | Nephrology Progress Note ---
Date of Service August 18, 2024 Assessment & Plan (1) Nephrotic range proteinuria: (2) Hypokalemia: (3) Hypomagnesemia: (4) Acute respiratory failure with hypoxia: (5) Elevated troponin I level: (6) Diabetes: (7) Hypertension: Plan 79-year-old gentleman with history of hypertension, diabetes, smoking admitted to the hospital with generalized weakness and weight gain of 15 pounds over last 1 month. Has normal kidney function, creatinine was 0.9 mg/dl although he did have an episode of CHRISTIAN in June when admitted for fall and femur fracture, creatinine was 1.9 mg/dl which rapidly improved. Urinalysis at that time also showed 3+ proteinuria similar to what we are seeing now, spot urine protein creatinine ratio was 6.2. Imaging showed solitary right kidney possibly congenital. Proteinuria 2.6 g on 24-hour urine with normal kidney function could be secondary to hypertension, diabetes and smoking however cannot exclude possibility for secondary FSGS, membranous nephropathy or paraproteinemia considering advanced age, pending paraproteinemia workup, PLA2R, ROSIE and complements. Waiting on Cardiac cath this morning. -- on Entresto -- Low-salt diet -- monitor kidney function while getting cardiac cath Admission and Anticipated Discharge Date Admission Date: August 15, 2024 Nora Feng was seen and evaluated this morning. He reports still having some shortness of breath while lying flat but overall feeling better. Significant urine output with current dose of diuretics and net negative. Kidney function, electrolytes acceptable. Blood pressure variable but overall improved. Review of Systems Review of Systems: Review of system was done and pertinent positives and negatives are mentioned above. Physical Exam Constitutional: WD/WN, vitals as above no acute distress Eyes: + anicteric sclerae Respiratory: no respiratory distress Auscultation: lungs clear to auscultation bilaterally; no crackles and no wheezes Cardiovascular: Rate/Rhythm: regular rate and regular rhythm Heart Sounds: normal S1 and normal S2 Extremities: + edema Musculoskeletal: Extremities: extremities normal to inspection Skin: no rashes, warm and dry Neurologic: no focal motor deficits Psychiatric: Orientation: alert and oriented x 3 Affect: euthymic affect Results & Data Vital Signs (Past 12 Hours) Vital Signs Temp Pulse Pulse Resp BP BP Pulse Ox 08/18/24 07:20 36.7 C 61 18 158/78 H 94 12/16/24 07:05 67 08/18/24 03:40 36.8 C 62 18 152/80 H 94 08/17/24 22:21 36.3 C L 71 18 148/72 H 93 08/17/24 22:07 68 08/17/24 20:30 O2 Del Method 08/18/24 07:20 Room Air 08/18/24 07:05 08/18/24 03:40 Room Air 08/17/24 22:21 Room Air 08/17/24 22:07 08/17/24 20:30 Room Air PG Care Time/CCT Total # of Minutes Spent Total Time Spent with Patient: Total time spent is greater than 50% in coordination of care (as documented) at patient's floor/unit and/or counseling patient: Coding Level of Care Code 24745 SUB INP/OBS CARE 2/35MIN Diagnoses Nephrotic range proteinuria R80.9 Hypokalemia E87.6 Hypomagnesemia E83.42 Acute respiratory failure with hypoxia J96.01 Elevated troponin I level R79.89 Diabetes E11.9 Hypertension I10 Hypertension type: unspecified (7) Hypertension Hypertension type: unspecified Qualified Code(s): I10 - Essential (primary) h ypertension
--- NOTE | 2024-08-18 09:21 | Hospitalist Progress Note ---
Date of Service August 18, 2024 Assessment & Plan (1) Acute respiratory failure with hypoxia: (2) Acute CHF: (3) Elevated troponin: (4) History of CVA (cerebrovascular accident): (5) Hypertension: (6) Hyperlipemia: (7) Abnormal Holter monitor finding: (8) Type 2 diabetes mellitus: (9) Tobacco smoker, 1 pack of cigarettes or less per day: (10) Ileus: (11) B12 deficiency: Plan 79-year-old male with past medical history of CVA in 1988, history of recent left hip arthroplasty for left hip fracture on June 27, 2024, ongoing ileus issues, type 2 diabetes mellitus with neuropathy, essential hypertension, hyperlipidemia, patient with solitary kidney with the recent outpatient abnormal Holter monitor results presents with 3-day history of worsening shortness of breath and orthopnea #Acute hypoxic respiratory failure Likely from congestive heart failure BNP is elevated 1278 Chest x-ray and CTA showed pulmonary edema and no evidence of PE noted Procalcitonin is 0.02: Patient is afebrile, no elevated white count and no cough #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 Moderate concentric LVH. Mild mitral regurgitation, type II diastolic dysfunction BNP is improving Continue Lasix 40 mg IV twice daily and spironolactone 25 mg p.o. daily started by cardiology I/O monitoring Daily weights Continue aspirin plus statin Amlodipine has been increased from 5 to 10 mg daily by nephrology for better blood pressure control Cardiology has switched lisinopril to Entresto Continue Toprol-XL 25 mg daily Continue Jardiance 10 mg p.o. daily Outpatient Holter monitor: HR 31-112 with Mobitz type 1 block on holter: Cardiology has recommended continuing beta-lui for now, no need for pacemaker Continue telemetry monitoring Awaiting cath with cardiology today #Single solitary kidney #Proteinuria #Hypokalemia #Hypomagnesemia Nephrology has been consulted 24-hour urine collection: Results pending Monitor renal function while patient on IV Lasix Replace electrolytes and monitor Avoid nephrotoxic agents including NSAIDs Nephrology Dr. Nassar saw the patient in consultation Nephrology has sent ROSIE screen, complements SPEP and UPEP: Results pending Await nephrology follow-up and recommendations #Type 2 diabetes mellitus with neuropathy A1c 6.9 Continue Jardiance Accu-Cheks before every meal and nightly with sliding scale insulin coverage Pharmacy managing glycemic management #Chronic colonic ileus Patient passing gas, reports no abdominal pain, nausea or vomiting Tolerating oral diet Monitor #Tobacco use disorder Smoking cessation counseling provided Continue to nicotine replacement patch #Vitamin B12 deficiency B12 level is 115 Continue vitamin B12 supplementation: Received 3 days of IM and currently on oral supplementation CODE STATUS: DNR/DNI DVT prophylaxis: Lovenox 40 mg subcutaneous daily Discharge planning Home based on PT and cardiology recommendations post cath Care plan discussed with patient, nursing staff and daughter Jaleel updated at bedside Admission and Anticipated Discharge Date Admission Date: August 15, 2024 Subjective Patient seen and examined Labs reviewed Daughter Jaleel at bedside Patient reports feeling much better today. Denies nausea, vomiting, diarrhea, abdominal pain or any bloating. Abdominal distention is improved. He is currently n.p.o. for cardiac cath today. He denies any chest pain or shortness of breath. Physical Exam Physical Exam: General: No acute distress Psych: Awake and alert, oriented x 3 HEENT: Anicteric sclera, moist oral mucosa CVS: Regular rate and rhythm Lungs: Bilateral air entry, no wheezing noted Abdomen: Soft, nontender, no rebound, no guarding Ext: Improving pitting edema, no calf tenderness Neuro: No focal motor deficits noted Results & Data Results & Data Vital Signs (Past 12 Hours) Vital Signs Temp Pulse Pulse Resp BP BP Pulse Ox 08/18/24 07:20 36.7 C 61 18 158/78 H 94 08/18/24 07:05 67 08/18/24 03:40 36.8 C 62 18 152/80 H 94 08/17/24 22:21 36.3 C L 71 18 148/72 H 93 08/17/24 22:07 68 O2 Del Method 08/18/24 07:20 Room Air 08/18/24 07:05 08/18/24 03:40 Room Air 08/17/24 22:21 Room Air 08/17/24 22:07 Laboratory Results Laboratory Results - last 24 hr 08/17/24 08/17/24 08/17/24 11:19 16:15 20:30 WBC RBC Hgb Hct MCV MCH MCHC RDW Std Deviation RDW Coeff of Dhaval Plt Count MPV Sodium Potassium Chloride Carbon Dioxide Anion Gap BUN Creatinine Est Cr Clr Drug Dosing eGFR BUN/Creatinine Ratio Glucose POC Glucose 132 H 119 H 161 H Calcium Magnesium 08/18/24 08/18/24 07:20 07:38 WBC 6.13 RBC 3.89 L Hgb 12.2 L Hct 37.3 L MCV 95.9 MCH 31.4 MCHC 32.7 RDW Std Deviation 47.9 H RDW Coeff of Dhaval 13.5 Plt Count 365 MPV 10.0 Sodium 143 Potassium 3.6 Chloride 103 Carbon Dioxide 31 Anion Gap 9 BUN 10 Creatinine 0.99 Est Cr Clr Drug Dosing 68.8 eGFR 77.01 BUN/Creatinine Ratio 10.1 Glucose 140 H POC Glucose 135 H Calcium 8.9 Magnesium 1.7 PG Care Time/CCT Total # of Minutes Spent Total Time Spent with Patient: Total time spent is greater than 50% in coordination of care (as documented) at patient's floor/unit and/or counseling patient: Coding Level of Care Code 56339 SUB INP/OBS CARE 2/35MIN Diagnoses Acute respiratory failure with hypoxia J96.01 Acute CHF I50.9 Elevated troponin R79.89 History of CVA (cerebrovascular accident) Z86.73 Hypertension I10 Hypertension type: unspecified Hyperlipemia E78.5 Abnormal Holter monitor finding R94.31 Type 2 diabetes mellitus E11.9 Tobacco smoker, 1 pack of cigarettes or less per day F17.210 Ileus K56.7 B12 deficiency E53.8 (5) Hypertension Hypertension type: unspecified Qualified Code(s): I10 - Essential (primary) hypertension
[2024-08-18] MEDS: POTASSIUM CHLORIDE CRTAB 20 MEQ TABCR PO STA (09:34)
[2024-08-18] MEDS: MAGNESIUM SULFATE / D5W 1 GM/100 ML BAG IV SCH (09:34)
--- NOTE | 2024-08-18 12:29 | Pharmacy Report ---
Pharmacy Glycemic Short Note 2 - Date of Service August 18, 2024 - Glycemic Short BSG Results (Last 24 hours): 08/17/24 08/17/24 08/18/24 16:15 20:30 07:20 Glucose POC Glucose 119 H 161 H 135 H 08/18/24 07:38 Glucose 140 H POC Glucose OUTPATIENT ANTIDIABETIC REGIMEN: * Jardiance 10mg PO daily * Actos 45mg daily * Janumet XR daily * HbA1c 6.9% (08/16/24) ASSESSMENT: 08/18: * BSGs within goal the last 48h. Received 5 units of bolus insulin yesterday. * NPO this AM for cath. Other stressors stable. * No change to regimen- continue Novolog ACHS 01/09. Fasting BSGs remain acceptable - continue to hold basal. 08/16: * Jung is an 79 YOM admitted with respiratory failure and a history of type 2 diabetes mellitus. Pharmacy has been consulted to assist with glycemic management while inpatient. * Fasting BSG this AM acceptable, will hold basal insulin at this time. * BSGs starting to rise will add carbohydrate ratio at this time to help prevent further rising PLAN FOR INPATIENT GLYCEMIC CONTROL: * Hold outpatient oral diabetes medications * Basal insulin * HOLD * Bolus insulin * NovoLog per scale ACHS or Q6hrs while NPO * Goal Range: Low 110 mg/dL - High 140 mg/dL * Correction Factor: 30 mg/dL/unit * Nutritional / Prandial insulin per carb ratio of 1 unit per 12 grams CHO consumed
[2024-08-18] MEDS: niCARdipine 2,000 MCG/20 ML SYR ONE ×2 (12:41→14:48)
[2024-08-18] MEDS: IODIXANOL (VISIPAQUE) 320 MG/ML 100ML IV ONE (12:42)
[2024-08-18] MEDS: NITROGLYCERIN/D5W 100MCG/ML 20ML SYR ONE ×2 (12:42→14:49)
--- NOTE | 2024-08-18 12:45 | Pre Anesthesia Assessment ---
Date of Service August 18, 2024 Pre Sedation Assessment Vital Signs Temp Pulse Pulse Resp BP BP Pulse Ox 08/18/24 12:11 36.6 C 66 18 142/74 H 95 08/18/24 07:20 36.7 C 61 18 158/78 H 94 08/18/24 07:05 67 08/18/24 03:40 36.8 C 62 18 152/80 H 94 08/17/24 22:21 36.3 C L 71 18 148/72 H 93 08/17/24 22:07 68 08/17/24 20:30 08/17/24 20:02 36.6 C 75 18 170/81 H 94 08/17/24 17:29 69 08/17/24 15:21 36.5 C 68 18 152/76 H 94 O2 Del Method 08/18/24 12:11 Room Air 08/18/24 07:20 Room Air 08/18/24 07:05 08/18/24 03:40 Room Air 08/17/24 22:21 Room Air 08/17/24 22:07 08/17/24 20:30 Room Air 08/17/24 20:02 Room Air 08/17/24 17:29 08/17/24 15:21 Room Air Cardiovascular + regular rate + murmur Respiratory normal respiratory effort, lungs clear to auscultation Pre-Sedation Airway Assessment Smoking Status: Current every day smoker Hx Sleep Apnea: No Short, Thick Neck: No Thyromental Distance: > or= 3.5 Finger Breadths Oral Cavity: + Dental Abnormalities Mallampati Class: III ASA: ASA3 NPO Status Date of Last Intake of Fluids: 08/18/24 Time of Last Intake of Fluids: 09:00 Last Oral Intake of Fluids Comment: sips with meds Date of Last Intake of Solid Food: 08/17/24 Time of Last Intake of Solid Foods: 23:00 Procedure Planning Contraindications for Sedation: none Current Medications Reviewed: Yes Notes The planned sedation has been discussed with the patient. Informed Consent was obtained. I have identified the patient, determined the appropriateness of sedation and have assessed the patient immediately prior to the procedure. All medicine(s) and interventions are by my order.
[2024-08-18] MEDS: OPTIRAY 350 ONE ×2 (13:23→15:46)
[2024-08-18] MEDS: MIDAZOLAM HCL 1 MG/ML 2ML VIAL ONE ×2 (13:23→15:45)
[2024-08-18] MEDS: HEPARIN (PORCINE) 1000 UNIT/ML 10 ML (CATH LAB USE ONLY) ONE ×3 (13:23→15:47)
[2024-08-18] MEDS: fentaNYL citrate PF 100 MCG/2 ML VIAL ONE ×2 (13:23→15:44)
--- NOTE | 2024-08-18 15:01 | Cardiac Catheterization ---
[facility] Data: Physician'S Assistant Cardiac Status Clinical evaluation leading to the procedure CAD Presenation: Unstable angina Anginal Classification: CCS IV Heart Failure: NYHA Class: CCS IV Cardiogenic Shock within 24 Hours: No Cardiac Arrest within 24 Hours: No Imaging Studies Past 6 Months: Yes Stress Studies Past 6 Months: No Coronary Anatomy Dominant: Right Diagnostic Physicians Name: José Miguel Young MD Status: Elective Closure Device Percutaneous Entry Location: Radial Closure Device: Radial Band Recommendations: PCI without planned CABG Cardiac Cath Procedure Full Procedure Date August 18, 2024 Pre-Procedure Diagnosis Pre-Procedure Diagnosis: Non STEMI, Angina, CHF and Cardiomyopathy AUC Score AUC Score: 8 Post-Procedure Diagnosis Post-Procedure Diagnosis: Severe CAD Procedure(s) Performed Procedure(s) Performed: Coronary Angiography and Left Heart Cath Dial Printer José Miguel Young MD Certified Flex Endoscope Reprocessor(s) Manjeet Estimated Blood Loss Estimated Blood Loss: < 20 ml Medication(s) Medication(s): Fentanyl, Heparin, Lidocaine 1%, Nicardipine and Versed Summary of Findings Procedures: 1. Coronary angiography 2. Left heart catheterization 3. Moderate sedation Indications: Mr. Lauren is a pleasant 79-year-old gentleman with a history significant for type 2 diabetes, tobacco abuse, hypertension, dyslipidemia, stroke, who presented with heart failure with mildly reduced EF, cardiomyopathy, with regional wall motion abnormality (basal inferior wall). He has been having intermittent chest discomfort which he describes as "heartburn." Peak high- sensitivity troponin was 257. Coronary angiography: 1. Left main: Distal LM 10%. 2. Left anterior descending: Diffuse mild CAD within the mid LAD. Focal mid LAD 70%. Late mid LAD 20%. Large early D1 with proximal 30 to 40% and mid 30% stenosis. Medium caliber D2 and small caliber D3 and D4 vessels without significant CAD. BONNIE-3 flow. 3. Circumflex: Small circumflex. Circumflex gives rise to small caliber OM1 with mid 50 to 70% and distal 70-80% stenosis. 4. Right coronary artery: RCA is very large and dominant. Ectatic late proximal and early mid RCA. Mid RCA 95% stenosis. Late mid RCA 70-80% stenosis. BONNIE-[address] without significant CAD. PDA proximal 50-70%. Left heart catheterization: 1. Left ventriculography was not performed. 2. No significant aortic stenosis. 3. LVEDP 7 mmHg. Moderate sedation: 1. Sedation start time: 1253 2. Sedation end time: 1317 Procedural notes: 1. Coronary angiography was performed via the right radial artery without known complication. 2. J-wire did not easily pass through the right upper extremity. Glidewire was easily advanced. Impression: 1. Severe CAD involving dominant RCA. Also small focal severe stenosis of the mid LAD. 2. Otherwise, mild and moderate CAD. 3. Normal left-sided filling pressure. 4. No aortic stenosis. Plan: 1. Images reviewed with Dr. Donahue of interventional cardiology who plans to perform PCI of the RCA and possibly mid LAD, when available to do so. Patient will be removed from the Physician'S Assistant table and monitored in the holding area until interventional cardiology is available to complete PCI. Findings/plan were discussed with patient and his daughter (Jaleel). 2. Risk factor modification. 3. Cardiac rehab. Hemodynamics Rest Ao:: 134/58 Final Ao: 145/63 LV: 134/2/7 Recommendations Recommendations: PCI without planned CABG Specimens Specimens: None Radiation Exposure (mGy) 1247 mGy. Fluoro time 4.2 min. Contrast (mls) 70 ml Procedural Complication(s) None Disposition Physician'S Assistant Holding/Recovery I attest to the content of the Intraoperative Record and any orders documented therein. Any exceptions are noted below. [facility] Card Cath Procedure Codes Cardiac Catheterization Procedure 1: Cardiovascular Cath Procedures: 31393 Coronaries and LHC (+/-LV) Moderate Sedation Procedure 1: Sedation/Anesthesia: 54175 Mod Sedation by the same physician;Init15 Min Child Age 5 & Up Procedure 2: Sedation/Anesthesia: 33638 Mod Sedation by the same physician; Ea [id number] Minutes PG Care Time/CCT Total # of Minutes Spent Total Time Spent with Patient: Total time spent is greater than 50% in coordination of care (as documented) at patient's floor/unit and/or counseling patient:
--- NOTE | 2024-08-18 15:17 | Cardiology Progress Note ---
Date of Service August 18, 2024 Assessment & Plan (1) Acute heart failure with mildly reduced ejection fraction (HFmrEF, 41-49%): (2) CAD (coronary artery disease): (3) Elevated troponin: (4) Chest pain: (5) Cardiomyopathy: (6) Hyperlipemia: (7) Hypertension: (8) Tobacco smoker, 1 pack of cigarettes or less per day: (9) Mobitz I: (10) Paroxysmal ventricular tachycardia: Plan ASSESSMENT/PLAN: 1. Acute heart failure with mildly reduced EF: Edema much improved. Clinically much improved. 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 LVEDP normal during left heart catheterization. Can replace intravenous Lasix with Lasix 40 mg daily tomorrow. Low-sodium diet, less than 2000 mg daily. Strict I's and O's. Daily weights. Continue metoprolol succinate, Entresto, spironolactone, and SGLT2 inhibitor. Heart failure progr am. 2. CAD: To undergo PCI with Dr. Donahue today following diagnostic coronary angiography. Aspirin 81 mg daily. Second antiplatelet agent will be initiated with PCI. Continue high intensity statin therapy. Cardiac rehab. 3. Cardiomyopathy: Reduced LV systolic function with regional wall motion abnormality. Repeat echo in the future following PCI. He does not qualify for ICD for primary prevention. 4. NSTEMI: High-sensitivity troponin mildly elevated. Found to have severe CAD. Plan as above. 5. Dyslipidemia: Continue high intensity statin therapy. LDL well-controlled. 6. Hypertension: Blood pressure has been elevated but improved. Continue diuresis. Spironolactone and Entresto have been initiated. Can further titrate GDMT for heart failure management. Well beta blocked. 7. Mobitz 1: Continue low-dose beta-lui. No symptoms to suggest significant pause/bradycardia. No indication for pacemaker at this time. 8. Nonsustained ventricular tachycardia: Reported on outside Holter from 08/07/2024. Continue beta-lui. Continue telemetry. 9. Tobacco abuse: Smokes cessation. 10. Disposition: Cardiology will continue to follow. Plan of care communicated with primary hospitalist, Dr. San. Cath findings discussed earlier today with his daughter, Jaleel Ga RN. Heart failure program. His daughter would like him to follow in the [place] office. Will arrange follow-up. Admission and Anticipated Discharge Date Admission Date: August 15, 2024 Subjective He denies any further chest pain. He also denies shortness of breath, syncope, near syncope, palpitations, or bleeding. Edema has improved. Physical Exam Physical Exam: Gen.: No acute distress. Alert and oriented. HEENT: Anicteric sclera. Neck: No JVD. Cardiac: Regular. Normal S1-S2. 1/6 systolic murmur. Pulmonary:Clear to auscultation bilaterally without wheezes, rales, or rhonchi. Abdomen: Soft, nontender, nondistended, with normoactive bowel sounds. No bruits noted. Extremities: 2+ radial pulses bilaterally. 2+ posterior tibialis pulses bilaterally. 1-2+ bilateral lower extremity edema (improved). No cyanosis. Results & Data Vital Signs (Past 12 Hours) Vital Signs Temp Pulse Pulse Resp BP BP Pulse Ox 08/18/24 14:00 58 L 18 140/74 96 08/18/24 13:45 58 L 18 142/69 H 95 08/18/24 13:30 65 18 155/87 H 96 08/18/24 12:11 36.6 C 66 18 142/74 H 95 08/18/24 07:20 36.7 C 61 18 158/78 H 94 08/18/24 07:05 67 08/18/24 03:40 36.8 C 62 18 152/80 H 94 O2 Del Method 08/18/24 14:00 Room Air 08/18/24 13:45 Room Air 08/18/24 13:30 Room Air 08/18/24 12:11 Room Air 08/18/24 07:20 Room Air 08/18/24 07:05 08/18/24 03:40 Room Air Intake & Output 08/16/24 08/17/24 08/18/24 08/19/24 06:59 06:59 06:59 06:59 Intake Total 500.000 / 643.771 6654 / 1270 996.667 / 996.667 196.667 / 196.667 Output Total 1450 / 1450 3275 / 3275 3226 / 3226 1000 / 1000 Balance -950.000 / -950.000 -2005 / -2004 -9.333 / -2229.333 -803.333 / - 803.333 Weight 217 lb 9.54 oz 205 lb 0.478 oz 201 lb 11.567 oz Laboratory Results Laboratory Results - last 24 hr 08/17/24 08/17/24 08/18/24 16:15 20:30 07:20 WBC RBC Hgb Hct MCV MCH MCHC RDW Std Deviation RDW Coeff of Dhaval Plt Count MPV Sodium Potassium Chloride Carbon Dioxide Anion Gap BUN Creatinine Est Cr Clr Drug Dosing eGFR BUN/Creatinine Ratio Glucose POC Glucose 119 H 161 H 135 H Calcium Magnesium 08/18/24 07:38 WBC 6.13 RBC 3.89 L Hgb 12.2 L Hct 37.3 L MCV 95.9 MCH 31.4 MCHC 32.7 RDW Std Deviation 47.9 H RDW Coeff of Dhaval 13.5 Plt Count 365 MPV 10.0 Sodium 143 Potassium 3.6 Chloride 103 Carbon Dioxide 31 Anion Gap 9 BUN 10 Creatinine 0.99 Est Cr Clr Drug Dosing 68.8 eGFR 77.01 BUN/Creatinine Ratio 10.1 Glucose 140 H POC Glucose Calcium 8.9 Magnesium 1.7 Diagnostic Findings Telemetry personally reviewed: Sinus rhythm. No arrhythmia. Labs reviewed and notable for stable renal function, normal potassium, mild anemia. Nephrology note reviewed Cardiac cath 08/18/2024: Coronary angiography: 1. Left main: Distal LM 10%. 2. Left anterior descending: Diffuse mild CAD within the mid LAD. Focal mid LAD 70%. Late mid LAD 20%. Large early D1 with proximal 30 to 40% and mid 30% stenosis. Medium caliber D2 and small caliber D3 and D4 vessels without significant CAD. BONNIE-3 flow. 3. Circumflex: Small circumflex. Circumflex gives rise to small caliber OM1 with mid 50 to 70% and distal 70-80% stenosis. 4. Right coronary artery: RCA is very large and dominant. Ectatic late proximal and early mid RCA. Mid RCA 95% stenosis. Late mid RCA 70-80% stenosis. BONNIE-[address] without significant CAD. PDA proximal 50-70%. Left heart catheterization: 1. Left ventriculography was not performed. 2. No significant aortic stenosis. 3. LVEDP 7 mmHg. Medications Administered Current Inpatient Medications Acetaminophen (Acetaminophen 500 Mg Tab) 1,000 mg PO TID PRN PRN Reason: Pain Stop: 09/14/24 18:20 Amlodipine Besylate (Amlodipine Besylate 5 Mg Tab) 10 mg PO QAM [facility] Stop: 09/16/24 08:59 Last Admin: 08/18/24 08:05 Dose: 10 mg Aspirin (Aspirin 81 Mg Ectab) 81 mg PO QAM [facility] Stop: 09/15/24 08:59 Last Admin: 08/18/24 08:05 Dose: 81 mg Atorvastatin Calcium (Atorvastatin 40 Mg Tab) 40 mg PO PM [facility] Stop: 09/14/24 20:59 Last Admin: 08/17/24 20:23 Dose: 40 mg Cyanocobalamin (Cyanocobalamin 1000 Mcg/Ml Vial) 1,000 mcg IM QAM [facility] Stop: 08/19/24 08:59 Last Admin: 08/18/24 08:06 Dose: 1,000 mcg Dextrose (Dextrose 50% 50 Ml Syringe) 25 - 50 ml IV UD PRN; Protocol PRN Reason: Hypoglycemia Protocol Stop: 09/14/24 23:54 Empagliflozin (Empagliflozin 10 Mg Tab) 10 mg PO DAILY [facility] Stop: 09/15/24 08:59 Last Admin: 08/18/24 08:06 Dose: 10 mg Enoxaparin Sodium (Enoxaparin Inj 40 Mg/0.4 Ml Syr) 40 mg SQ QPM [facility] Stop: 09/14/24 21:39 Last Admin: 08/17/24 20:23 Dose: 40 mg Furosemide (Furosemide 40 Mg/4 Ml Vial) 40 mg IV BID17 [facility] Stop: 09/15/24 08:59 Last Admin: 08/18/24 09:34 Dose: 40 mg Gabapentin (Gabapentin 300 Mg Cap) 300 mg PO BID [facility] Stop: 09/14/24 20:59 Last Admin: 08/18/24 08:06 Dose: 300 mg Glucagon (Glucagon For Inj 1 Mg Vial) 1 mg SQ UD PRN; Protocol PRN Reason: Hypoglycemia Protocol Stop: 09/14/24 23:54 Glucose (Glucose 40% Gel 15 Gm Tube) 15 - 30 gm PO UD PRN; Protocol PRN Reason: Hypoglycemia Protocol Stop: 09/14/24 23:54 Glucose (Glucose 10 Tab/Tube) 4 - 8 tab PO UD PRN; Protocol PRN Reason: Hypoglycemia Protocol Stop: 09/14/24 23:54 Insulin Aspart (Insulin Aspart Per Unit Charge) 0 units SC ACHS [facility] Stop: 09/15/24 07:29 Last Admin: 08/18/24 07:35 Dose: Not Given Magnesium Oxide (Magnesium Oxide 400 Mg Tab) 400 mg PO BID [facility] Stop: 09/15/24 08:59 Last Admin: 08/18/24 08:06 Dose: 400 mg Melatonin (Melatonin 3 Mg Tab) 3 mg PO HS PRN PRN Reason: Sleep Stop: 09/16/24 11:26 Last Admin: 08/17/24 20:22 Dose: 3 mg Metoprolol Succinate (Metoprolol Succ 25mg Ext Rel Tab) 25 mg PO PM [facility]ARY Stop: 09/14/24 20:59 Last Admin: 08/17/24 20:24 Dose: 25 mg Miscellaneous (Remove Nicoderm Patch) 1 each N/A DAILY@0859 [facility] Stop: 09/15/24 08:58 Last Admin: 08/18/24 07:55 Dose: Not Given Miscellaneous (Carbohydrates For Hypoglycemia ) 15 - 30 gm PO UD PRN PRN Reason: Hypoglycemia Protocol Stop: 09/14/24 23:54 Miscellaneous Information (Pharmacy Glycemic Mgmt Consult) 1 each N/A UD PRN; Protocol PRN Reason: Consult Stop: 09/14/24 23:54 Nicotine (Nicotine 7 Mg/24 Hr Tdsy) 1 patch TD QAM [facility] Stop: 09/15/24 08:59 Last Admin: 08/18/24 08:07 Dose: Not Given Pantoprazole Sodium (Pantoprazole 40 Mg Tab) 40 mg PO QAM [facility] Stop: 09/14/24 19:44 Last Admin: 08/18/24 08:06 Dose: 40 mg Potassium Chloride (Potassium Chloride Crtab 20 Meq Tabcr) 40 meq PO Q6H [facility] Stop: 08/18/24 22:01 Sacubitril/Valsartan (Valsartan/Sacubitril 26/24mg Tab) 1 tab PO BID [facility] Stop: 09/16/24 20:59 Last Admin: 08/18/24 08:05 Dose: 1 tab Simethicone (Simethicone 80 Mg Chew) 80 mg PO QID [facility] Stop: 09/15/24 08:59 Last Admin: 08/18/24 08:06 Dose: 80 mg Spironolactone (Spironolactone 25 Mg Tab) 25 mg PO QAM [facility] Stop: 09/15/24 16:44 Last Admin: 08/18/24 08:06 Dose: 25 mg Vitamin B Complex (Vitamin B Complex Tab) 1 tab PO QAM [facility] Stop: 09/15/24 08:59 Last Admin: 08/18/24 08:06 Dose: 1 tab PG Care Time/CCT Total # of Minutes Spent Total Time Spent with Patient: Total time spent is greater than 50% in coordination of care (as documented) at patient's floor/unit and/or counseling patient: Coding Level of Care Code 15879 SUB INP/OBS CARE 3/50MIN Diagnoses Acute heart failure with mildly reduced ejection fraction (HFmrEF, 41-49%) I50.21 CAD (coronary artery disease) I25.10 Elevated troponin R79.89 Chest pain R07.9 Cardiomyopathy I42.9 Hyperlipemia E78.5 Hypertension I10 Hypertension type: unspecified Tobacco smoker, 1 pack of cigarettes or less per day F17.210 Mobitz I I44.1 Paroxysmal ventricular tachycardia I47.20 (7) Hypertension Hypertension type: unspecified Qualified Code(s): I10 - Essential (primary) hypertension
--- NOTE | 2024-08-18 15:21 | Post Anesthesia Assessment ---
Date of Service August 18, 2024 Post Sedation Assessment Vital Signs Temp Pulse Pulse Resp BP BP Pulse Ox 08/18/24 14:00 58 L 18 140/74 96 08/18/24 13:45 58 L 18 142/69 H 95 08/18/24 13:30 65 18 155/87 H 96 08/18/24 12:11 36.6 C 66 18 142/74 H 95 08/18/24 07:20 36.7 C 61 18 158/78 H 94 08/18/24 07:05 67 08/18/24 03:40 36.8 C 62 18 152/80 H 94 08/17/24 22:21 36.3 C L 71 18 148/72 H 93 08/17/24 22:07 68 08/17/24 20:30 08/17/24 20:02 36.6 C 75 18 170/81 H 94 08/17/24 17:29 69 08/17/24 15:21 36.5 C 68 18 152/76 H 94 O2 Del Method 08/18/24 14:00 Room Air 08/18/24 13:45 Room Air 08/18/24 13:30 Room Air 08/18/24 12:11 Room Air 08/18/24 07:20 Room Air 08/18/24 07:05 08/18/24 03:40 Room Air 08/17/24 22:21 Room Air 08/17/24 22:07 08/17/24 20:30 Room Air 08/17/24 20:02 Room Air 08/17/24 17:29 08/17/24 15:21 Room Air Recovery Score Activity: Moves 4 extremities Respiration: Deep Breath/Cough Circulation: +/-20% PreAnes Value Consciousness: Fully Awake Oxygen Saturation: > 92% On Room Air Discharge Sedation Level of Care: Fast Track Phase II Post Sedation Plan On clinical assessment, the patient appears to have tolerated the sedation without complications. Patient is recovering as anticipated. Patient will continue to be monitored by nursing and may be discharged when sedation discharge criteria are met per below protocol. Upon Completions of procedure up to 15 minutes continue every 5 minute vital signs and the P.A.R. score; then discharge to a Phase I or Fast Track to Phase II per the following guidelines: * Discharge Patient to appropriate Phase II area if PAR is 8 or greater or return to pre- procedure baseline. The post - procedure orders will be as directed. * If PAR score is less than 8 or not return to pre-procedure baseline then patient will follow Phase I monitoring till PAR is reached for Phase II. The Phase I may be done in procedure room or may call to secure a Phase I area. * If naloxone or flumazenil are used for reversal, hold in Phase I for continued monitoring from when last reversal dose was given for a minimum of 60 minutes or longer pending the nurse and/or physician discretion of patient condition before discharge to Phase II. Please call the Sedation Physician to re-evaluate and complete post-note for discharge to Phase II area. Do NOT discharge from procedure sedation or Phase 1 until post- sedation evaluation note is complete by procedure /sedation MD Sedation Discharge Instructions to be given to the patient at discharge to home.
[2024-08-18] MEDS: CLOPIDOGREL BISULFATE 300 MG TAB ONE (16:14)
[2024-08-18] MEDS: POTASSIUM CHLORIDE CRTAB 20 MEQ TABCR PO SCH (16:48)
[2024-08-18] MEDS: ACETAMINOPHEN 500 MG TAB PO PRN (22:11)
--- NOTE | 2024-08-18 22:26 | Cardiac Catheterization ---
[facility] Data: Customer Relations Assistant Cardiac Status Clinical evaluation leading to the procedure CAD Presenation: Non STEMI Anginal Classification: CCS III Diagnostic Physicians Name: Good Donahue MD Closure Device Recommendations: PCI without planned CABG Cardiac Cath Procedure Full Procedure Date August 18, 2024 Pre-Procedure Diagnosis Pre-Procedure Diagnosis: Non STEMI, Angina, CAD, CHF and Cardiomyopathy AUC Score AUC Score: 8 Post-Procedure Diagnosis Post-Procedure Diagnosis: Severe CAD and Successful PCI Procedure(s) Performed Procedure(s) Performed: Coronary Angiography, Drug Eluting Stent and IVUS Associate Pastor Good Donahue MD Logistics Loss Prevention Manager(s) Manjeet Estimated Blood Loss Estimated Blood Loss: <30ml Medication(s) Medication(s): Clopidogrel, Fentanyl, Heparin, Nicardipine, Nitroglycerin and Versed Summary of Findings Indication: NSTEMI, cardiomyopathy Access: 6 Fr right radial artery Catheters: JR4 guide, EBU 3.5 guide Findings: For full details of patient's coronary angiography please see cath report dictated by Dr. Young. Briefly, patient found to have severe diffuse mid to distal RCA disease and possible significant focal LAD disease. Decision to proceed with PCI of RCA and further assess LAD. -- PCI -- Antithrombotic therapy: Heparin, clopidogrel Procedure: RCA cannulated with JR4 guide Pre-procedure flow BONNIE 3 [place] blue wire passed across lesion into distal vessel Melissa IVUS catheter placed to distal RCA. Pullback revealed severe mid RCA disease, minimally calcified with ectatic segment in earlymid RCA. Mid to distal RCA stented with 4.0 x 38 mm [place] drug-eluting stent Second DIMAS (4.5 x 18 mm [place]) placed to mid RCA overlapping proximal aspect of initial stent Repeat IVUS showed well-expanded stent with malapposition in proximal aspect Proximal stent post-dilated with 5.0 noncompliant balloon IC vasodilators administered for spasm Post procedure BONNIE 3 flow, stent well expanded with minimal residual stenosis and no apparent cardiac complications. IVUS of LAD Left main cannulated with EBU 3.5 guide [place] blue wire passed across mid LAD disease into distal vessel Melissa IVUS catheter placed to mid LAD. IVUS pullback revealed only moderate, minimally calcified disease in mid segment at area of interest (50% by IVUS). No significant proximal LAD or left main disease. Catheter/wire removed and no apparent complications. Arterial Closure: TR band Summary: 1. Successful PCI of mid to distal RCA with 2 overlapping drug-eluting stents (4.5 x 18, 4.0 x 38 mm [place]; postdilated with 5.0 NC). 2. Moderate nonobstructive mid LAD disease (50% by IVUS) Recommendations: To PCU for continued monitoring Loaded with clopidogrel 600 mg in Customer Relations Assistant Continue dual-antiplatelet therapy for at least 1 year. Consider extended P2Y12 in the setting of ectatic earlymid RCA Medical management of moderate LAD disease Continue statin, and ASCVD risk factor modification Consult cardiac Rehab Hemodynamics Rest Ao:: 170/70/107 Final Ao: 151/60/100 LV: -- Recommendations Recommendations: PCI without planned CABG Specimens Specimens: None Radiation Exposure (mGy) 2094 Contrast (mls) 90 Anesthesia Moderate [id number] Procedural Complication(s) None Disposition PCU I attest to the content of the Intraoperative Record and any orders documented therein. Any exceptions are noted below. [facility] Card Cath Procedure Codes Therapeutic Services & Ancillary Procedure 1: Cardiovascular Tx and Anc Procedures: 11056 IV Ultrasound (Coronary or Graft) Procedure 2: Cardiovascular Tx and Anc Procedures: 35108 IV Ultrasound Ea addl vessel Moderate Sedation Procedure 1: Sedation/Anesthesia: 04771 Mod Sedation by the same physician; Ea [id number] Minutes Stenting Procedure 1: Cardiovascular Stent Procedures: 70103 Perc transcatheter placement of intracoronary stent(s), with ang PG Care Time/CCT Total # of Minutes Spent Total Time Spent with Patient: Total time spent is greater than 50% in coordination of care (as documented) at patient's floor/unit and/or counseling patient:
[2024-08-19 00:38] VITALS: RESP 18
[2024-08-19 06:29] LABS: BUN Creatinine Ratio 14.1 (10-20); Calcium 8.6 mg/dl (8.6-10.3); Creatinine Clr Calc Pharmacy 68.2 ml/min; Magnesium 1.8 mg/dl (1.7-2.4); Potassium 4.1 mmol/L (3.5-5.1)
[2024-08-19 07:24] VITALS: O2SAT 96
[2024-08-19] MEDS: CLOPIDOGREL BISULFATE 75 MG TAB PO SCH (08:23)
[2024-08-19] MEDS: MAGNESIUM SULFATE / D5W 1 GM/100 ML BAG IV SCH (08:23)
[2024-08-19] MEDS: FUROSEMIDE 40 MG TAB PO SCH (08:24)
--- NOTE | 2024-08-19 10:37 | Cardiology Progress Note ---
Date of Service August 19, 2024 Assessment & Plan (1) Acute heart failure with mildly reduced ejection fraction (HFmrEF, 41-49%): (2) CAD (coronary artery disease): (3) Elevated troponin: (4) Chest pain: (5) Cardiomyopathy: (6) Hyperlipemia: (7) Hypertension: (8) Tobacco smoker, 1 pack of cigarettes or less per day: (9) Mobitz I: (10) Paroxysmal ventricular tachycardia: Plan ASSESSMENT/PLAN: 1. Acute heart failure with mildly reduced EF: Has residual edema, however somewhat asymmetric and had normal LVEDP on 08/18/2020 for left heart cath. Clinically much improved. 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 Lasix 40 mg p.o. daily. Once again discussed the importance of a low-sodium diet, less than 2000 mg daily. Strict I's and O's. Daily weights. Bring outpatient weights to future appointments. Continue meto prolol succinate, Entresto, spironolactone, and SGLT2 inhibitor. Heart failure program. Entresto can be further titrated at heart failure appointment next week. 2. CAD s/p RCA PCI x 2: Continue aspirin 81 mg daily indefinitely. Continue Plavix for at least 1 year with consideration of extended use given ectatic early mid RCA as per interventional cardiology. Continue high intensity statin therapy. Cardiac rehab. 3. Cardiomyopathy: Reduced LV systolic function with regional wall motion abnormality. Repeat echo in the future following PCI. He does not qualify for ICD for primary prevention. 4. NSTEMI: High-sensitivity troponin mildly elevated. Found to have severe CAD. Plan as above. 5. Dyslipidemia: Continue high intensity statin therapy. LDL well-controlled. 6. Hypertension: Blood pressure elevated this morning but was well-controlled throughout the day yesterday. Continue current regimen for now. Can further titrate Entresto in the outpatient setting. Continue loop diuretic. Spironolactone and Entresto have been initiated. Can further titrate GDMT for heart failure management. Well beta blocked. 7. Mobitz 1: Continue low-dose beta-lui. No symptoms to suggest significant pause/bradycardia. No indication for pacemaker at this time. 8. Nonsustained ventricular tachycardia: Reported on outside Holter from 08/07/2024. Continue beta-lui. Continue telemetry. 9. Tobacco abuse: Smokes cessation. 10. Disposition: Discharge home from a cardiology perspective. Follow-up with heart failure program next week which is being arranged by Janessa Dietrich PA-C. Plan of care communicated with primary hospitalist, Dr. San. His daughter would like him to follow in the [place] office. Will arrange follow-up. Admission and Anticipated Discharge Date Admission Date: August 15, 2024 Subjective Patient was seen earlier today with his daughter at the bedside. He denies any further chest pain. He denies shortness of breath, syncope, near syncope, palpitations. He believes that his edema has improved. He feels better today following PCI yesterday. Physical Exam Physical Exam: Gen.: No acute distress. Alert and oriented. HEENT: Anicteric sclera. Neck: No JVD. Cardiac: Regular. Normal S1-S2. 1/6 systolic murmur. Pulmonary: Clear to auscultation bilaterally without wheezes, rales, or rhonchi. Abdomen: Soft, nontender, nondistended, with normoactive bowel sounds. No bruits noted. Extremities: 2+ radial pulses bilaterally. Right radial cath site was clean, dry, and intact without erythema or discharge. 2+ posterior tibialis pulses bilaterally. 1+ bilateral lower extremity edema (improved); right greater than left. No cyanosis. Results & Data Vital Signs (Past 12 Hours) Vital Signs Temp Pulse Pulse Resp BP Pulse Ox O2 Del Method 08/19/24 09:00 Room Air 08/19/24 08:00 64 08/19/24 07:23 36.3 C L 62 18 151/78 H 96 Room Air 08/19/24 03:48 36.6 C 64 18 110/61 93 Room Air 08/18/24 23:44 36.4 C L 59 L 18 131/67 95 Room Air 08/18/24 22:55 76 Intake & Output 08/17/24 08/18/24 08/19/24 08/20/24 06:59 06:59 06:59 06:59 Intake Total 1270 / 1270 996.667 / 996.667 701.667 / 701.667 88.333 / 88.333 Output Total 3275 / 3275 3226 / 3226 1900 / 1900 Balance -2004 / -2004.333 / -2229.333 -1198.333 / -1198.333 88.333 / 88.333 Weight 205 lb 0.478 oz 198 lb 10.184 oz 198 lb 10.184 oz Laboratory Results Laboratory Results - last 24 hr 08/18/24 08/18/24 08/18/24 15:21 15:39 16:37 Activ Coag Time Kaolin 216 H 216 H Sodium Potassium Chloride Carbon Dioxide Anion Gap BUN Creatinine Est Cr Clr Drug Dosing eGFR BUN/Creatinine Ratio Glucose POC Glucose 83 Calcium Magnesium 08/18/24 08/19/24 08/19/24 20:45 05:28 07:25 Activ Coag Time Kaolin Sodium 140 Potassium 4.1 Chloride 104 Carbon Dioxide 24 Anion Gap 12 H BUN 13 Creatinine 0.92 Est Cr Clr Drug Dosing 68.2 eGFR 84.09 BUN/Creatinine Ratio 14.1 Glucose 148 H POC Glucose 156 H 125 H Calcium 8.6 Magnesium 1.8 Diagnostic Findings Telemetry personally reviewed: Sinus rhythm. No arrhythmia. Labs reviewed from 08/19/2024: Stable renal function, normal potassium. Interventional cardiology procedure report reviewed from 08/18/2024: 1. Successful PCI of mid to distal RCA with 2 overlapping drug-eluting stents (4.5 x 18, 4.0 x 38 mm Eloy; postdilated with 5.0 NC). 2. Moderate nonobstructive mid LAD disease (50% by IVUS) Medications Administered Current Inpatient Medications Acetaminophen (Acetaminophen 500 Mg Tab) 1,000 mg PO TID PRN PRN Reason: Pain Stop: 09/14/24 18:20 Last Admin: 08/18/24 22:11 Dose: 1,000 mg Amlodipine Besylate (Amlodipine Besylate 5 Mg Tab) 10 mg PO [facility] Stop: 09/16/24 08:59 Last Admin: 08/19/24 08:23 Dose: 10 mg Aspirin (Aspirin 81 Mg Ectab) [facility] Stop: 09/15/24 08:59 Last Admin: 08/19/24 08:23 Dose: 81 mg Atorvastatin Calcium (Atorvastatin 40 Mg Tab) 40 mg PO PM [facility] Stop: 09/14/24 20:59 Last Admin: 08/18/24 20:18 Dose: 40 mg Clopidogrel Bisulfate (Clopidogrel Bisulfate 75 Mg Tab) [facility] Stop: 09/18/24 08:59 Last Admin: 08/19/24 08:23 Dose: 75 mg Dextrose (Dextrose 50% 50 Ml Syringe) 25 - 50 ml IV UD PRN; Protocol PRN Reason: Hypoglycemia Protocol Stop: 09/14/24 23:54 Empagliflozin (Empagliflozin 10 Mg Tab) 10 mg PO DAILY MARY Stop: 09/15/24 08:59 Last Admin: 08/19/24 08:23 Dose: 10 mg Enoxaparin Sodium (Enoxaparin Inj 40 Mg/0.4 Ml Syr) 40 mg SQ QPM MARY Stop: 09/14/24 21:39 Last Admin: 08/18/24 20:18 Dose: 40 mg Furosemide (Furosemide 40 Mg Tab) 40 mg PO QAM MARY Stop: 09/18/24 08:59 Last Admin: 08/19/24 08:24 Dose: 40 mg Gabapentin (Gabapentin 300 Mg Cap) 300 mg PO BID MARY Stop: 09/14/24 20:59 Last Admin: 08/19/24 08:24 Dose: 300 mg Glucagon (Glucagon For Inj 1 Mg Vial) 1 mg SQ UD PRN; Protocol PRN Reason: Hypoglycemia Protocol Stop: 09/14/24 23:54 Glucose (Glucose 40% Gel 15 Gm Tube) 15 - 30 gm PO UD PRN; Protocol PRN Reason: Hypoglycemia Protocol Stop: 09/14/24 23:54 Glucose (Glucose 10 Tab/Tube) 4 - 8 tab PO UD PRN; Protocol PRN Reason: Hypoglycemia Protocol Stop: 09/14/24 23:54 Magnesium Sulfate/Dextrose (Magnesium Sulfate / D5w) 1 gm in 100 mls @ 50 mls/hr IV Q2H MARY Stop: 08/19/24 11:44 Last Admin: 08/19/24 10:09 Dose: 50 mls/hr Insulin Aspart (Insulin Aspart Per Unit Charge) 0 units SC ACHS MARY Stop: 09/15/24 07:29 Last Admin: 08/19/24 08:27 Dose: 2 units Magnesium Oxide (Magnesium Oxide 400 Mg Tab) 400 mg PO BID MARY Stop: 09/15/24 08:59 Last Admin: 08/19/24 08:24 Dose: 400 mg Melatonin (Melatonin 3 Mg Tab) 3 mg PO HS PRN PRN Reason: Sleep Stop: 09/16/24 11:26 Last Admin: 08/17/24 20:22 Dose: 3 mg Metoprolol Succinate (Metoprolol Succ 25mg Ext Rel Tab) 25 mg PO PM [facility] Stop: 09/14/24 20:59 Last Admin: 08/18/24 20:18 Dose: 25 mg Miscellaneous (Remove Nicoderm Patch) 1 each N/A DAILY@0859 [facility] Stop: 09/15/24 08:58 Last Admin: 08/19/24 08:23 Dose: Not Given Miscellaneous (Carbohydrates For Hypoglycemia ) 15 - 30 gm PO UD PRN PRN Reason: Hypoglycemia Protocol Stop: 09/14/24 23:54 Miscellaneous Information (Pharmacy Glycemic Mgmt Consult) 1 each N/A UD PRN; Protocol PRN Reason: Consult Stop: 09/14/24 23:54 Nicotine (Nicotine 7 Mg/24 Hr Tdsy) 1 patch TD QAM [facility] Stop: 09/15/24 08:59 Last Admin: 08/19/24 08:24 Dose: Not Given Pantoprazole Sodium (Pantoprazole 40 Mg Tab) 40 mg PO QAM [facility] Stop: 09/14/24 19:44 Last Admin: 08/19/24 08:24 Dose: 40 mg Sacubitril/Valsartan (Valsartan/Sacubitril 26/24mg Tab) 1 tab PO BID [facility] Stop: 09/16/24 20:59 Last Admin: 08/19/24 08:24 Dose: 1 tab Simethicone (Simethicone 80 Mg Chew) 80 mg PO QID [facility] Stop: 09/15/24 08:59 Last Admin: 08/19/24 10:08 Dose: 80 mg Spironolactone (Spironolactone 25 Mg Tab) 25 mg PO QAM [facility] Stop: 09/15/24 16:44 Last Admin: 08/19/24 08:24 Dose: 25 mg Vitamin B Complex (Vitamin B Complex Tab) 1 tab PO QAM [facility] Stop: 09/15/24 08:59 Last Admin: 08/19/24 08:24 Dose: 1 tab PG Care Time/CCT Total # of Minutes Spent Total Time Spent with Patient: Total time spent is greater than 50% in coordination of care (as documented) at patient's floor/unit and/or counseling patient: Coding Level of Care Code 65222 SUB INP/OBS CARE 3/50MIN Diagnoses Acute heart failure with mildly reduced ejection fraction (HFmrEF, 41-49%) I50.21 CAD (coronary artery disease) I25.10 Elevated troponin R79.89 Chest pain R07.9 Cardiomyopathy I42.9 Hyperlipemia E78.5 Hypertension I10 Hypertension type: unspecified Tobacco smoker, 1 pack of cigarettes or less per day F17.210 Mobitz I I44.1 Paroxysmal ventricular tachycardia I47.20 (7) Hypertension Hypertension type: unspecified Qualified Code(s): I10 - Essential (primary) hypertension
[2024-08-19 12:02] VITALS: PULSE 69; TEMP 97.7
--- NOTE | 2024-08-19 12:20 | Nephrology Progress Note ---
Date of Service August 19, 2024 Assessment & Plan (1) Nephrotic range proteinuria: (2) Hypokalemia: (3) Hypomagnesemia: (4) Acute respiratory failure with hypoxia: (5) Elevated troponin I level: (6) Diabetes: (7) Hypertension: Plan 79-year-old gentleman with history of hypertension, diabetes, smoking admitted to the hospital with generalized weakness and weight gain of 15 pounds over last 1 month. Has normal kidney function, creatinine was 0.9 mg/dl although he did have an episode of CHRISTIAN in June when admitted for fall and femur fracture, creatinine was 1.9 mg/dl which rapidly improved. Urinalysis at that time also showed 3+ proteinuria similar to what we are seeing now, spot urine protein creatinine ratio was 6.2. Imaging showed solitary right kidney possibly congenital. Proteinuria 2.6 g on 24-hour urine with normal kidney function could be secondary to hypertension, diabetes and smoking however possibility for secondary FSGS, membranous nephropathy or paraproteinemia remains considering advanced age, pending paraproteinemia workup, PLA2R, ROSIE and complements. -- on Lasix 40 mg po/d starting tomorrow, Entresto and Jardiance -- Low-salt diet -- waiting on Serology, but Ok to DC when medically stable, can be monitored as out pt. Admission and Anticipated Discharge Date Admission Date: August 15, 2024 Nora Feng was seen and evaluated this morning his family at bedside. He reports overall feeling better after he had PCI and DIMAS x 2 yesterday. Has decent urine output. Kidney function, electrolytes acceptable. Blood pressure variable but overall fairly controlled. Review of Systems Review of Systems: Review of system was done and pertinent positives and negatives are mentioned above. Physical Exam Constitutional: WD/WN, vitals as above no acute distress Eyes: + anicteric sclerae Respiratory: no respiratory distress Auscultation: lungs clear to auscultation bilaterally Cardiovascular: Rate/Rhythm: regular rate and regular rhythm Heart Sounds: normal S1 and normal S2 Extremities: + edema Musculoskeletal: Extremities: extremities normal to inspection Skin: no rashes, warm and dry Neurologic: no focal motor deficits Psychiatric: Orientation: alert and oriented x 3 Affect: euthymic affect Results & Data Vital Signs (Past 12 Hours) Vital Signs Temp Pulse Pulse Resp BP Pulse Ox O2 Del Method 08/19/24 12:01 36.5 C 69 18 128/66 96 Room Air 08/19/24 09:00 Room Air 08/19/24 08:00 64 08/19/24 07:23 36.3 C L 62 18 151/78 H 96 Room Air 08/19/24 03:48 36.6 C 64 18 110/61 93 Room Air PG Care Time/CCT Total # of Minutes Spent Total Time Spent with Patient: Total time spent is greater than 50% in coordination of care (as documented) at patient's floor/unit and/or counseling patient: Coding Level of Care Code 70051 SUB INP/OBS CARE 2/35MIN Diagnoses Nephrotic range proteinuria R80.9 Hypokalemia E87.6 Hypomagnesemia E83.42 Acute respiratory failure with hypoxia J96.01 Elevated troponin I level R79.89 Diabetes E11.9 Hypertension I10 Hypertension type: unspecified (7) Hypertension Hypertension type: unspecified Qualified Code(s): I10 - Essential (primary) hypertension
[2024-08-19 13:13] VITALS: BP 158/78
--- NOTE | 2024-08-19 13:14 | Discharge Summary ---
Discharge Summary Date of Service August 19, 2024 Principal Dx & Hospital Course #1 = Principal Diagnosis (1) Acute respiratory failure with hypoxia: (2) Acute CHF: (3) Elevated troponin: (4) History of CVA (cerebrovascular accident): (5) Hypertension: (6) Hyperlipemia: (7) Abnormal Holter monitor finding: (8) Type 2 diabetes mellitus: (9) Tobacco smoker, 1 pack of cigarettes or less per day: (10) Ileus: (11) B12 deficiency: (12) CAD (coronary artery disease): (13) Paroxysmal ventricular tachycardia: (14) Mobitz I: Plan 79-year-old male with past medical history of CVA in 1988, history of recent left hip arthroplasty for left hip fracture on June 27, 2024, ongoing ileus issues, type 2 diabetes mellitus with neuropathy, essential hypertension, hyperlipidemia, patient with solitary kidney with the recent outpatient abnormal Holter monitor results presents with 3-day history of worsening shortness of breath and orthopnea #Acute hypoxic respiratory failure: Resolved Likely from congestive heart failure BNP is elevated 1278 Chest x-ray and CTA showed pulmonary edema and no evidence of PE noted Procalcitonin is 0.02: Patient is afebrile, no elevated white count and no cough Patient was diuresed IV Lasix and is saturating well on room air and not requiring oxygen #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 Moderate concentric LVH. Mild mitral regurgitation, type II diastolic dysfunction Patient was seen by cardiology during hospital stay He underwent cardiac catheterization with cardiology and had PCI with DIMAS x 2 to RCA Cath report as follows: Summary: 1. Successful PCI of mid to distal RCA with 2 overlapping drug-eluting stents (4.5 x 18, 4.0 x 38 mm [place]; postdilated with 5.0 NC). 2. Moderate nonobstructive mid LAD disease (50% by IVUS) As per cardiology, patient will need to be on aspirin 81 mg daily plus Plavix 75 mg daily for at least 1 year and then after that aspirin 81 mg daily indefinitely Continue statin Patient was initially diuresed with IV Lasix and cardiology has now switched him to oral Lasix 40 mg p.o. daily Patient was also started on spironolactone 25 mg p.o. daily by cardiology Heart healthy low-sodium diet: Discussed with patient and family in great detail Amlodipine has been increased from 5 to 10 mg daily by nephrology for better blood pressure control Cardiology has switched lisinopril to Entresto Continue Toprol-XL 25 mg daily Continue Jardiance 10 mg p.o. daily Outpatient Holter monitor: HR 31-112 with Mobitz type 1 block on holter: Cardiology has recommended continuing beta-lui for now, no need for pacemaker Outpatient follow-up with cardiology on discharge #Single solitary kidney #Proteinuria Nephrology saw the patient in consultation 24-hour urine collection: Showed proteinuria 2.6 g on 24-hour urine with normal kidney function. As per nephrology this could be secondary to hypertension, diabetes, smoking and however possibility of secondary FSGS, membranous nephropathy or paraproteinemia remains in the differential. Nephrology has sent ROSIE screen, complements SPEP and UPEP: Results pending Avoid nephrotoxic agents including NSAIDs Patient to follow-up with nephrology as outpatient for results and monitoring of kidney function #Type 2 diabetes mellitus with neuropathy A1c 6.9 Continue Jardiance Resume Janumet in 48 hours after discharge since patient received contrast dye with cardiac cath Outpatient follow with PCP for diabetes management #Chronic colonic ileus Patient passing gas, reports no abdominal pain, nausea or vomiting Tolerating oral diet Abdominal exam is completely benign, patient is passing bowel movements Outpatient follow with PCP #Tobacco use disorder Smoking cessation counseling provided Continue to nicotine replacement patch as needed Outpatient follow-up with PCP #Vitamin B12 deficiency B12 level is 115 Continue vitamin B12 supplementation: Received 3 days of IM and currently on oral supplementation Outpatient follow-up PCP Patient has been cleared by cardiology and nephrology for discharge Patient seen and examined. Daughter Jaleel at bedside. Have gone over the discharge care plan, medications, follow-up with the patient and his daughter Jaleel in great detail and answered all their questions. This discharge to greater than 30 minutes to coordinate Admission HPI Per Admitting Provider Jung Lauren is an 79 year old male who presents to the ER with shortness of breath. His daughter at bedside presents most of the history. She reports concern for abdominal distension that has been going on since his hip operation in June. This has not been getting worse and no associated abdominal pain. Bowel movements have not been normal but also not diarrhea or constipation. No nausea or vomiting. Secondly she is concerned his weight is up 25lb since his operation with bilateral but right > left leg swelling (since July 18 however she reports not previously had US to assess for DVT in this leg). She reports they have been to acute care in [place] as well as the hospital and had a CT for his abdomen but told no significant findings part from an abnormal EKG which prompted his PCP getting a Holter monitor. His PCP has been doing a workup including a Holter monitor which she was told had a heart block and is also concerned about this but no episodes of presyncope or syncope (heart rate lowest 31 bpm on this with 2nd degree Mobitz type 1). He started getting short of breath without cough or fever started 3 days ago. Last night he describes an episode of "indigestion". This was sternal chest pain that started at 7pm and lasted for 15-20 minutes, no radiation, severity 03/12, initially reported only one further episode it occurred but his daughter thinks he had this multiple times throughout the night as he was unable to sleep. No current chest pain. His daughter gave him his pantoprazole early without relief and drinking milk which usually helps with his indigestion also didn't help. Associated shortness of breath with this and difficulty lying flat. No nausea or diaphoresis. He has no history of heart attack but has diabetes, hypertension and continues to smoke half a pack of cigarettes a day. He takes an aspirin Sunday, Sunday and Sunday only. Given these symptoms his daughter persuaded him to come to the ER today. 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 #History of CVA #Essential hypertension #Hyperlipidemia #Abnormal Holter monitor readings #CAD s/p PCI with DIMAS X 2 to RCA #Mobitz type I #Paroxysmal ventricular tachycardia #Single solitary kidney #Proteinuria #Type 2 diabetes mellitus with neuropathy #Chronic colonic ileus #Tobacco use disorder #Vitamin B12 deficiency Activity: As commented below Activity Comment: As tolerated Non-emergency contact: Primary Care Provider Call non-emergency contact if: you have any medication questions, your symptoms worsen and you have a fever Follow-up/Referrals: José Miguel Young MD [Physician] - Rolanda Nassar MD [Physician] - Efren Card [Primary Care Provider] - Janessa Dietrich PA-C [Physician School Bus Technician] - 08/26/24 9:00 am Diet: Carb Consistent or DM2, Heart Healthy and Low Sodium (2gm) Addtl Attending Provider Instructions: DISCHARGE INSTRUCTION TO PATIENT/FAMILY: Follow-up with your primary care provider within 1 week regarding: Posthospital discharge, medication review, medication refills and follow-up on all your medical problems, diabetes management, blood pressure monitoring, pending test results, labs, xray Please take all your discharge medications, discharge information and discharge instructions to all your doctors appointments. Avoid all NSAIDs including ibuprofen, Motrin, Advil, Aleve, naproxen, meloxicam, Toradol, diclofenac Please follow-up with transit planning director Dr. Nassar or PCP regarding pending test results: ROSIE screen, complements, SPEP and UPEP Follow-up with senior product development manager Dr. Young in 1 to 2 weeks time regarding coronary disease and congestive heart failure You had a cardiac cath and had 2 drug-eluting stents placed: You will need to be on aspirin 81 mg daily along with Plavix 75 mg daily for at least 1 year. Please follow-up with cardiology regarding this. You will need to be on aspirin 81 mg daily indefinitely after 1 year You have congestive heart failure. Please check your weight every day in the morning at the same time on the same scale. If you gain more than 2 pounds in 24 hours or start feeling short of breath with increasing leg swelling, take an extra dose of Lasix 40 mg in addition to home Lasix dose and contact your PCP or senior product development manager right away for further advice. Labs through PCP in 1 week: CBC, CMP, MG, VITAMIN D Chest x-ray (PA and lateral) and two-view abdominal x-ray through PCP outpatient in 1 to 2 weeks time ACTIVITY RECOMMENDATIONS: Excess manipulation of the wrist should be avoided for the next 24-48 hours. * No lifting over 2 pounds (approximately a 1/2 gallon of milk) with the utilized arm for 24 hours. * No strenuous activity such as bowling or tennis for 3 days. * Keep the site of the procedure covered with a bandage for 24 hours. *You may shower the day after the procedure. Do not take a tub bath or submerge the puncture site in water for the next 3 days. *Do not operate any motorized equipment for 3 days. SPECIAL CARE INSTRUCTIONS: The site may be slightly bruised and sore following your procedure. Should any of the following occur, contact the Dr. who performed your procedure. 1. Redness/inflammation, swelling, chills, or fever, or colored drainage at procedure site within 3-7 days after your procedure. 2. Coldness, discoloration, ongoing numbness, severe pain, or swelling. Expect mild tingling of hand and tenderness at the puncture site for up to three days. If this persists beyond three days, or other symptoms develop, notify the Dr. who performed your procedure. BLEEDING: If the procedure site on your wrist begins to bleed, do not panic 1. Place 1 or 2 fingers firmly just slightly above the insertion site to stop the bleeding. You may be able to feel your pulse as you hold pressure. 2. Lift your finger after 5 minutes to see if the bleeding has stopped. 3. Once the bleeding has stopped, gently wipe the wrist area clean with a bandage. * If the bleeding from your wrist does not stop after 10 minutes, or if there is a large amount of bleeding or spurting, call 911 (do not drive yourself to the hospital). SKIN IRRITATION: * You may experience some redness and/or swelling in the area where radiation was administered. If any skin irritation occurs, please contact your family physician. FOLLOW UP VISIT: Keep any scheduled doctor appointments. Pending Studies at Discharge: Yes (ROSIE screen, complements, SPEP and UPEP) Studies:: ROSIE screen, complements, SPEP and UPEP Stand-Alone Forms: [employer], Smoking Cessation Medications and DC Order Prescriptions: New amlodipine 10 mg tablet 10 mg PO DAILY Qty: 30 0RF spironolactone 25 mg Tablet 25 mg PO QAM Qty: 30 0RF sacubitril-valsartan [Entresto] 24-26 mg Tablet 1 tab PO BID Qty: 60 0RF magnesium oxide 400 mg (241.3 mg magnesium) Tablet 400 mg PO BID Qty: 14 0RF vitamin B complex [Vitamins B Complex] Capsule 1 cap PO QAM Qty: 30 0RF furosemide 40 mg Tablet 40 mg PO QAM Qty: 30 0RF Continued aspirin 81 mg Tablet,Delayed Release (Dr/Ec) 81 mg PO UD Qty: 0 Rx Instructions: Sunday, Sunday, Sunday clopidogrel 75 mg tablet 75 mg PO DAILY Qty: 90 3RF potassium chloride 10 mEq tablet extended release 10 meq PO HS Jardiance 10 mg tablet 10 mg PO DAILY atorvastatin 40 mg tablet 40 mg PO PM pantoprazole 20 mg tablet,delayed release (DR/EC) 20 mg PO UD Rx Instructions: Sunday, sunday, sunday gabapentin 300 mg capsule 300 mg PO BID metoprolol succinate 25 mg tablet extended release 24 hr 25 mg PO PM fenofibrate nanocrystallized 48 mg tablet 48 mg PO PM cholecalciferol (vitamin D3) [Vitamin D3] 25 mcg (1,000 unit) Tablet 25 mcg PO QAM No Action lisinopril 20 mg tablet 20 mg PO BID pioglitazone 45 mg tablet 45 mg PO QAM amlodipine 5 mg tablet 5 mg PO QAM Janumet XR 100-1,000 mg tablet, ER multiphase 24 hr 1 tab PO PM Discharge Orders: Discharge Order- CHF (Routine); Ordered 08/19/24 Ordered By: Armando Keller/Other Patient Handouts: Coronary Stents, Managing Type 2 Diabetes, Cardiac Catheterization Admission Data Admit Date/Time: 08/15/24 17:05 Attending Provider: Armando San Admit Provider: Joshua Abel Primary Care Provider: Efren Card Other Providers: Joshua Abel; José Miguel Young; Rolanda Nassar; Janessa Dietrich Other Interventions: Discharge Summary Assessment (RN) Last Done: 08/19/24 13:11 Hospital Stay Data Consultations 08/15/24 16:51 ED Decision to Admit Stat 08/15/24 21:02 Consult Cardiology Routine 08/15/24 21:05 Consult Nephrology Routine 08/18/24 15:17 [facility] CHF Program Referral Routine 08/19/24 13:01 Consult Cardiac Rehabilitation Routine Procedures Performed Operation Date: 08/18/24 14:45 Actual Procedures p Cineradiography w/Routine Exam - Good Donahue MD p Drug Eluting Stent SGl Vessel - Good Donahue MD s IVUS Coronary Single Vessel - Good Donahue MD Diagnostic Imagining Performed 08/15/24 15:32 CT abd pelvis IV con only Stat CT angio chest PE protocol Stat 08/15/24 17:37 US venous duplex leg [US venous doppler LE RT] Stat 08/18/24 06:50 CL Cath Imgs for PACS use only Routine 08/18/24 14:35 CL Cath Imgs for PACS use only Routine 08/18/24 16:08 CL IVUS Coronary Single Vessel Routine 08/18/24 16:13 CL IVUS Coronary Single Vessel Routine Chest X-Ray 08/15/24 14:57 XR chest 1V portable CLINICAL HISTORY: Chest pain, nonspecific TECHNIQUE: Single frontal radiograph of the chest was obtained. Comparison: Comparison is made to chest radiograph 06/26/2024 FINDINGS: No lines and tubes are seen. Cardiomegaly is noted. Right greater than left lower lung airspace opacities are seen. Trace right pleural effusion. IMPRESSION: 1. Right lower and left lower lung airspace opacity. This may represent atelectasis, pneumonia, and/or aspiration. 2. Trace right pleural effusion. 3. Stable cardiac megaly. ACT 112: Negative or not required by law. Electronically signed by: Mj Santo M.D. 08/15/2024 3:25 PM Abdomen/Pelvis CT 08/15/24 15:32 EXAM: CT Abdomen and Pelvis With Intravenous Contrast INDICATION: Abdominal distention. TECHNIQUE: Axial computed tomography images of the abdomen and pelvis with intravenous contrast. Sagittal and coronal reformatted images were created and reviewed. This CT exam was performed using one or more of the following dose reduction techniques: automated exposure control, adjustment of the mA and/or kV according to patient size, and/or use of iterative reconstruction technique. CONTRAST: 119ml of Optiray 320 was administered intravenously. COMPARISON: No relevant prior studies available. FINDINGS: Limitations: None. Lung bases: There is airway thickening and dependent consolidation in both lower lobes. Pleural space: Small bilateral layering pleural effusions present right greater than left. Layering right effusion is 4.9 cm thickness and left 2.6 cm. No basilar pneumothorax noted. Heart: No abnormality noted. Mediastinum: No abnormality noted. ABDOMEN: Liver: No abnormality noted. Gallbladder and bile ducts: Tiny gallstones noted. Gallbladder wall thickening cannot be excluded. No ductal dilatation. Pancreas: Homogeneous enhancement. No mass, inflammation or ductal dilation. Spleen: No significant abnormality noted. Adrenals: No significant abnormality noted. Kidneys and ureters: Left nephrectomy. No mass in the nephrectomy bed. Mild cortical scarring right kidney. No stone or hydronephrosis. Simple right renal cysts. No follow-up of these simple cysts is necessary. Stomach and bowel: Prominently aerated redundant colon with segments of moderate formed stool. No obstruction. PELVIS: Appendix: No findings to suggest acute appendicitis. Bladder: Urinary bladder is incompletely distended and appears mildly inflamed. No stones or gas. Urinary bladder appears mildly thickened and inflamed. No gas or stone. Reproductive: No abnormalities noted. ABDOMEN and PELVIS: Intraperitoneal space: Small amounts of ascitic fluid noted over the hepatic dome and in the left lower quadrant. No organized or loculated collection. No free air. Bones/joints: Degenerative changes noted throughout the spine. No acute osseous abnormality seen. Soft tissues: Body wall edema noted. Right inguinal hernia noted containing fat. Vasculature: There is atherosclerosis of the aorta. The right common iliac artery is small possibly related to mild stenosis at the origin. No aneurysm or dissection. Lymph nodes: In the mesenteric fat to the left of the rectosigmoid colon is a soft tissue nodule likely a lymph node enlarged to 2.3 cm short axis dimension series 6 image 271. There are a few normal size scattered retroperitoneal nodes. IMPRESSION: 1. Colonic ileus. No obstruction or segmental thickening. 2. Cholelithiasis with possible acute cholecystitis. Sonography would better assess. 3. Cystitis. 4. Small bilateral pleural effusions and bronchitis and compressive atelectasis in the lower lobes. ACT 112: Negative or not required by law. Electronically signed by Alina Burciaga 08-15-2024 4:25 PM Chest CTA 08/15/24 15:32 EXAM: CT Angiography Chest With Intravenous Contrast INDICATION: Hypoxia. Shortness of breath. TECHNIQUE: Axial computed tomographic angiography images of the chest with intravenous contrast. Sagittal and coronal reformatted images were created and reviewed. This CT exam was performed using one or more of the following dose reduction techniques: automated exposure control, adjustment of the mA and/or kV according to patient size, and/or use of iterative reconstruction technique. MIP reconstructed images were created and reviewed. CONTRAST: 119 ml of Optiray 320 was administered intravenously. COMPARISON: No relevant prior studies available. FINDINGS: Pulmonary arteries: No abnormality noted. No pulmonary embolism. Aorta: No aneurysm or dissection. Lungs and pleural spaces: Small layering bilateral pleural effusions present. No pneumothorax. Generalized septal thickening noted. There is dependent consolidation and airway thickening in the lower lobes with some segments of small airway mucoid impaction. No bronchiectasis. Heart: The heart is mildly enlarged. No pericardial effusion. No definite evidence of right heart strain. Bones/joints: Degenerative changes in the spine. No lytic or blastic lesions. Soft tissues: No abnormality noted. Lymph nodes: Lateral aortic, aorta pulmonic and precarinal nodes present measuring up to 11 mm short axis dimension. No enlarged hilar nodes present. IMPRESSION: 1. No pulmonary embolus identified. 2. Probable CHF. 3. Dependent infiltrates in both lung bases with bronchitis and segments of small airway thickening. Pneumonia not excluded. 4. Mediastinal adenopathy likely reactive. ACT 112: Negative or not required by law. Electronically signed by Alina Burciaga 08-15-2024 4:29 PM Venous Doppler Study 08/15/24 17:37 Exam(s): US VENOUS RIGHT LOWER EXTREMITY EXAM: US Duplex Right Lower Extremity Veins CLINICAL HISTORY: Reason for exam: r/o DVT. TECHNIQUE: Real-time duplex ultrasound scan of the right lower extremity veins integrating B-mode two-dimensional vascular structure, Doppler spectral analysis, color flow Doppler imaging and compression. COMPARISON: No relevant prior studies available. FINDINGS: Deep veins: Unremarkable. No DVT in the visualized common femoral, femoral, proximal deep femoral or popliteal veins. The veins demonstrate normal color flow, are normally compressible, with normal phasic flow and/or augmentation response. Superficial veins: Unremarkable. No thrombus in the visualized great saphenous vein. Soft tissues: Soft tissue edema. IMPRESSION: No evidence of acute DVT. Electronically signed by: Tamar Philippe M.D. 08/15/24 23:26 PM Chest X-Ray 08/16/24 10:41 XR chest 2V PA/lateral CLINICAL HISTORY: chf vs pna COMPARISON STUDY: Chest radiograph and chest CT August 15, 2024. FINDINGS: There is no pneumothorax. Moderate right and small left pleural effusions with associated bibasilar opacities are again noted. There is cardiomegaly with persistent pulmonary edema. IMPRESSION: 1. Cardiomegaly with persistent pulmonary edema. 2. Moderate right and small left pleural effusions with associated bibasilar opacities which could reflect atelectasis or pneumonia. ACT 112: Negative or not required by law. Electronically signed by: Tomy Valdez M.D. 08/16/2024 11:46 AM Laboratory Results - last 48 hr 08/17/24 08/17/24 08/18/24 16:15 20:30 07:20 WBC RBC Hgb Hct MCV MCH MCHC RDW Std Deviation RDW Coeff of Dhaval Plt Count MPV Activ Coag Time Kaolin Sodium Potassium Chloride Carbon Dioxide Anion Gap BUN Creatinine Est Cr Clr Drug Dosing eGFR BUN/Creatinine Ratio Glucose POC Glucose 119 H 161 H 135 H Calcium Magnesium 08/18/24 08/18/24 08/18/24 07:38 15:21 15:39 WBC 6.13 RBC 3.89 L Hgb 12.2 L Hct 37.3 L MCV 95.9 MCH 31.4 MCHC 32.7 RDW Std Deviation 47.9 H RDW Coeff of Dhaval 13.5 Plt Count 365 MPV 10.0 Activ Coag Time Kaolin 216 H 216 H Sodium 143 Potassium 3.6 Chloride 103 Carbon Dioxide 31 Anion Gap 9 BUN 10 Creatinine 0.99 Est Cr Clr Drug Dosing 68.8 eGFR 77.01 BUN/Creatinine Ratio 10.1 Glucose 140 H POC Glucose Calcium 8.9 Magnesium 1.7 08/18/24 08/18/24 08/19/24 16:37 20:45 05:28 WBC RBC Hgb Hct MCV MCH MCHC RDW Std Deviation RDW Coeff of Dhaval Plt Count MPV Activ Coag Time Kaolin Sodium 140 Potassium 4.1 Chloride 104 Carbon Dioxide 24 Anion Gap 12 H BUN 13 Creatinine 0.92 Est Cr Clr Drug Dosing 68.2 eGFR 84.09 BUN/Creatinine Ratio 14.1 Glucose 148 H POC Glucose 83 156 H Calcium 8.6 Magnesium 1.8 12/17/24 12/17/24 07:25 11:19 WBC RBC Hgb Hct MCV MCH MCHC RDW Std Deviation RDW Coeff of Dhaval Plt Count MPV Activ Coag Time Kaolin Sodium Potassium Chloride Carbon Dioxide Anion Gap BUN Creatinine Est Cr Clr Drug Dosing eGFR BUN/Creatinine Ratio Glucose POC Glucose 125 H 213 H Calcium Magnesium Pending Results Patient Have Any Pending Studies at Discharge: Yes (ROSIE screen, complements, SPEP and UPEP) Discharge Instructions Given to Patient (Per Discharging Provider) DISCHARGE INSTRUCTION TO PATIENT/FAMILY: Follow-up with your primary care provider within 1 week regarding: Posthospital discharge, medication review, medication refills and follow-up on all your medical problems, diabetes management, blood pressure monitoring, pending test results, labs, xray Please take all your discharge medications, discharge information and discharge instructions to all your doctors appointments. Avoid all NSAIDs including ibuprofen, Motrin, Advil, Aleve, naproxen, meloxicam, Toradol, diclofenac Please follow-up with transit planning director Dr. Nassar or PCP regarding pending test results: ROSIE screen, complements, SPEP and UPEP Follow-up with senior product development manager Dr. Young in 1 to 2 weeks time regarding coronary disease and congestive heart failure You had a cardiac cath and had 2 drug-eluting stents placed: You will need to be on aspirin 81 mg daily along with Plavix 75 mg daily for at least 1 year. Please follow-up with cardiology regarding this. You will need to be on aspirin 81 mg daily indefinitely after 1 year You have congestive heart failure. Please check your weight every day in the morning at the same time on the same scale. If you gain more than 2 pounds in 24 hours or start feeling short of breath with increasing leg swelling, take an extra dose of Lasix 40 mg in addition to home Lasix dose and contact your PCP or senior product development manager right away for further advice. Labs through PCP in 1 week: CBC, CMP, MG, VITAMIN D Chest x-ray (PA and lateral) and two-view abdominal x-ray through PCP outpatient in 1 to 2 weeks time ACTIVITY RECOMMENDATIONS: Excess manipulation of the wrist should be avoided for the next 24-48 hours. * No lifting over 2 pounds (approximately a 1/2 gallon of milk) with the utilized arm for 24 hours. * No strenuous activity such as bowling or tennis for 3 days. * Keep the site of the procedure covered with a bandage for 24 hours. *You may shower the day after the procedure. Do not take a tub bath or submerge the puncture site in water for the next 3 days. *Do not operate any motorized equipment for 3 days. SPECIAL CARE INSTRUCTIONS: The site may be slightly bruised and sore following your procedure. Should any of the following occur, contact the Dr. who performed your procedure. 1. Redness/inflammation, swelling, chills, or fever, or colored drainage at procedure site within 3-7 days after your procedure. 2. Coldness, discoloration, ongoing numbness, severe pain, or swelling. Expect mild tingling of hand and tenderness at the puncture site for up to three days. If this persists beyond three days, or other symptoms develop, notify the Dr. who performed your procedure. BLEEDING: If the procedure site on your wrist begins to bleed, do not panic 1. Place 1 or 2 fingers firmly just slightly above the insertion site to stop the bleeding. You may be able to feel your pulse as you hold pressure. 2. Lift your finger after 5 minutes to see if the bleeding has stopped. 3. Once the bleeding has stopped, gently wipe the wrist area clean with a bandage. * If the bleeding from your wrist does not stop after 10 minutes, or if there is a large amount of bleeding or spurting, call 911 (do not drive yourself to the hospital). SKIN IRRITATION: * You may experience some redness and/or swelling in the area where radiation was administered. If any skin irritation occurs, please contact your family physician. FOLLOW UP VISIT: Keep any scheduled doctor appointments. Total Time Total Time Spent Total Time Spent (In Minutes): 40 minutes Coding Level of Care Code 76916 INP/OBS DISCH >30 MIN Diagnoses Acute respiratory failure with hypoxia J96.01 Acute CHF I50.9 Elevated troponin R79.89 History of CVA (cerebrovascular accident) Z86.73 Hypertension I10 Hypertension type: unspecified Hyperlipemia E78.5 Abnormal Holter monitor finding R94.31 Type 2 diabetes mellitus E11.9 Tobacco smoker, 1 pack of cigarettes or less per day F17.210 Ileus K56.7 B12 deficiency E53.8 CAD (coronary artery disease) I25.10 Paroxysmal ventricular tachycardia I47.20 [place] I I44.1
[2024-08-19 13:37] LABS: Anti Nuclear Antibody Screen NEGATIVE (NEGATIVE); Complement C3 163 mg/dL (82-185); Free Kappa 38.3 mg/L (3.3-19.4); Free Kappa/Lambda Ratio 2.03 (0.26-1.65); Free Lambda 18.9 mg/L (5.7-26.3)
[2024-08-20 06:32] LABS: Albumin 2.9 g/dL (3.8-4.8); Alpha 1 Globulin 0.3 g/dL (0.2-0.3); Alpha 2 Globulin 1.1 g/dL (0.5-0.9); Beta-1-Globulin 0.4 g/dL (0.4-0.6); Beta-2-Globulin 0.4 g/dL (0.2-0.5); Gamma Globulin 0.7 g/dL (0.8-1.7); Monoclonal Protein Band 1 DNR g/dL (NONE DETECTED); Monoclonal Protein Band 2 DNR g/dL (NONE DETECTED); Monoclonal Protein Band 3 DNR g/dL (NONE DETECTED); Total Protein 5.8 g/dL (6.1-8.1)
[2024-08-20 07:22] LABS: Creatinine Ur 34 mg/dL (20-320); Protein, Urine Random 87 mg/dL (5-25); Ur Albumin % 83 %; Ur Alpha-1-globulin % 5 %; Ur Alpha-2-globulin % 3 %; Ur Beta Globulin % 6 %; Ur Gamma Globulin % 3 %; Ur Protein/Creat Ratio mg/g 2559 mg/g creat (25-148); Urine Abnormal Protein Band 1 DNR mg/dL (NONE DETECTED); Urine Abnormal Protein Band 2 DNR mg/dL (NONE DETECTED); Urine Protein/Creatinine Ratio 2.559 (0.025-0.148)
== END 2024-08-19 14:31 | disposition home or self-care (01) | DRG 321 ==
LOC: ED 14:52 → 2E 17:05 → SUATTDRO 17:05 → 2E 17:41